=== PATIENT | male | born 1970 | race Caucasian/White ===

== ENCOUNTER 2017-01-06 15:20 | Inpatient (IN) | payer BC ==
[~2017-01-06] VITALS: Ht 180.3 cm; Wt 135.0 kg
[2017-01-15] MEDS ORDERED: METF850T PO (12:09)
[2017-01-15] MEDS ORDERED: PERC5TAB12 PO (12:09)
[2017-01-15] MEDS ORDERED: ZALE10CA PO (12:09)
[2017-01-15] MEDS ORDERED: VERA1TAB17 PO (12:09)
[2017-01-15] MEDS ORDERED: LOSA100T PO (12:09)
[2017-01-15] MEDS ORDERED: TERA5CAP3 PO (12:09)
[2017-01-15] MEDS ORDERED: SIMV20TA PO (12:09)
[2017-01-15] MEDS ORDERED: POTA10TA8 PO (12:09)
[2017-01-15] MEDS ORDERED: VITA-83 PO (12:09)
[2017-01-15] MEDS ORDERED: OMEP20TA PO (12:09)
[2017-01-15] MEDS ORDERED: VITA10002 PO (12:09)
[2017-01-15] MEDS ORDERED: FERR1TAB36 PO (12:09)
[2017-01-15] MEDS ORDERED: MONT10TA4 PO (12:09)
[2017-01-16] MEDS ORDERED: PROPOFOL 200 MG/20 ML AMP IV ONE (10:05)
[2017-01-16] MEDS ORDERED: ePHEDrine/NS 25 MG/5 ML SYR IV ONE (10:05)
[2017-01-16] MEDS ORDERED: ONDANSETRON HCL 4 MG/2 ML VIAL IV PUSH ONE (10:05)
[2017-01-16] MEDS ORDERED: NEOSTIGMINE 3 MG/3 ML SYR IV ONE (10:05)
[2017-01-16] MEDS ORDERED: NORMOSOL R INJ 2,000 ML IV ONE (10:05)
[2017-01-16] MEDS ORDERED: LACTATED RINGER'S 1000 ML INJ 3,000 ML IV ONE (10:05)
[2017-01-16] MEDS ORDERED: CHLORHEXIDINE GLUCONATE 2 % 1 PACK (2 CLOTHS) TOPICAL PRN (11:30)
[2017-01-16] MEDS ORDERED: SODIUM CHLORID 0.9% 500 ML IV PRN (11:30)
[2017-01-16] MEDS ORDERED: POVIDONE IODINE 5% (ANTISEPSIS KIT) 4 APPLICATIONS EACH NARE PRN (11:30)
[2017-01-16] MEDS ORDERED: ceFAZolin 2 GM PREMIX 50 ML IV SCH (11:30)
[2017-01-16] MEDS ORDERED: LACTATED RINGER'S 1000 ML IV PRN (11:30)
[2017-01-16] MEDS ORDERED: INSULIN HUMAN REGULAR 1,000 UNITS/10 ML VIAL SQ PRN (11:30)
[2017-01-16] MEDS ORDERED: METOPROLOL TARTRATE 25 MG TAB PO PRN (11:30)
[2017-01-16] MEDS ORDERED: CLIN1CAP6 PO (11:58)
[2017-01-16] MEDS ORDERED: NEOM500 PO (11:58)
[2017-01-16 12:01] VITALS: BP 138/80; PULSE 80; RESP 18; TEMP 98.2; O2SAT 96
[2017-01-16] MEDS ORDERED: MIDAZOLAM HCL 2 MG/2 ML VIAL ONE (14:52)
[2017-01-16] MEDS ORDERED: ACETAMINOPHEN 1000 MG/100 ML VIAL IV ONE ×2 (14:52→23:49)
[2017-01-16] MEDS ORDERED: fentaNYL CITRATE 250 MCG/5 ML AMP ONE ×2 (14:52→18:54)
[2017-01-16] MEDS ORDERED: FAMOTIDINE 20 MG/2 ML VIAL ONE (14:53)
[2017-01-16] MEDS ORDERED: SUGAMMADEX SODIUM 200 MG/2 ML VIAL IV PUSH ONE ×4 (14:53→23:49)
[2017-01-16] MEDS ORDERED: HYDROmorphone HCL PF 2 MG/ML VIAL ONE (14:53)
[2017-01-16] MEDS ORDERED: VANCOMYCIN HCL 1000 MG VIAL ONE (16:14)
[2017-01-16] MEDS ORDERED: CLINDAMYCIN PHOS 600 MG/4 ML VIAL ONE (16:14)
--- NOTE | 2017-01-16 16:40 | PD.OP ---
Operative Report Date of Surgery: Jan 16, 2017 Preoperative Diagnosis: (1) Diverticulitis Postoperative Diagnosis: (1) Diverticulitis Procedure: Cystoscopy and placement of bilateral ureteral catheters Anesthesia: General Surgeon: Charli Montanez Car Dumper Operator(s): None Operation and Findings: Indication for procedure: Consult intraoperatively to pass bilateral ureteral catheters to aid in visualization of this patient's ureters during his colorectal procedure. Urologic surgery procedures in detail: Concurrent with the colorectal surgeon Dr. Llanos I proceeded with cystoscopy and placement of bilateral ureteral catheters as follows: Initially cystoscopic evaluation was performed utilizing the rigid cystoscope with the 20 [place] sheath and 30 lens. The urethra was patent without stricture formation. The lateral lobes of the prostate were nonobstructing however there was markedly elevation of the bladder neck which made passing the cystoscope somewhat difficult. I was able to advance cystoscope and stimulated a small amount of bleeding in doing so. Upon entering the bladder both right and left ureteral orifice easily correct anatomic position effluxing clear yellow urine. There were multiple crystals noted collecting in the dependent portion of the bladder most likely related to incomplete bladder emptying. No other abnormalities were noted although I could not perform a detailed cystoscopic evaluation due to the small amount of bleeding that made visualization suboptimal. I then proceeded with passing the left sided ureteral catheter as follows: Initially a sensor 0.035 wire was advanced up the patient's left ureter. Next a 6 [place] open-ended catheter was advanced over the wire 25 cm in a cephalad direction and the wire withdrawn. The wire was then introduced through secondary synovitis cystoscope and the contralateral side was accomplished in similar fashion. With both catheters in place the wire and cystoscope were withdrawn and a 16 Bh[place]anese 10 cc Wills catheter was placed. Both open-ended ureteral catheters were then anchored to the Wills via a connector. All 3 catheters were then placed to gravity drainage. This completes urologic surgery portion of combined procedures on this patient. Dr. Llanos will have this patient follow up with me as an outpatient once he convalesces from his present surgery to further evaluate his voiding function. Charli Montanez MD Jan 16, 2017 16:40
[2017-01-16 22:28] LABS: BLOOD GAS BASE EXCESS -3.8 mmol/L (-2-2); BLOOD GAS CARBOXYHEMOGLOBIN 1.8 % (0-4); BLOOD GAS HCO3 21 mmol/L (22-26); BLOOD GAS METHEMOGLOBIN 1.1 % (0-2); BLOOD GAS O2 HGB SATURATION 96 % (90-100); BLOOD GAS PCO2 39 mmHg (38-42); BLOOD GAS PO2 175 mmHg (61-120); BLOOD GAS TOTAL HGB 13.8 G/DL (12.0-16.0); CRITICAL VALUE NO; TEMP CORR TO 98.6
[2017-01-16 22:31] LABS: STAT NO
[2017-01-17] VITALS (20 sets, daily range): BP systolic 108–154; BP diastolic 71–96; PULSE 103–124; RESP 16–18; TEMP 96.8–99.3; O2SAT 96–98
[2017-01-17] MEDS ORDERED: GENTAMICIN SULFATE 80 MG/2 ML VIAL ONE (00:26)
[2017-01-17] MEDS ORDERED: CLINDAMYCIN PHOS 600 MG/4 ML VIAL ONE (00:30)
[2017-01-17] MEDS ORDERED: ENALAPRILAT 1.25 MG/ML VIAL IV PRN (01:00)
[2017-01-17] MEDS: PCA - TOTAL MG MORPHINE DELIVERED PER SHIFT SCH ×4 (01:00→21:22)
[2017-01-17] MEDS ORDERED: ENALAPRILAT 2.5 MG/2 ML VIAL IV PRN (01:00)
[2017-01-17] MEDS ORDERED: POTASSIUM CHLOR 40 MEQ PREMIX 100 ML IV PRN (01:00)
[2017-01-17] MEDS ORDERED: NALOXONE HCL 0.4 MG/ML AMP IV PRN (01:00)
[2017-01-17] MEDS ORDERED: BENZOCAINE 6 MG/MENTHOL 10 MG LOZENGE BUCCAL PRN (01:00)
[2017-01-17] MEDS ORDERED: ACETAMINOPHEN 325 MG TAB PO PRN (01:00)
[2017-01-17] MEDS ORDERED: Post-op Orders (for Pharmacy) MISC XX ONE (01:00)
[2017-01-17] MEDS: SODIUM CHLORIDE 0.9% FLUSH 5 ML FLUSH IVF SCH ×3 (01:00→21:00)
[2017-01-17] MEDS ORDERED: SODIUM CHLORIDE 0.9% FLUSH 5 ML FLUSH IVF PRN (01:00)
[2017-01-17] MEDS ORDERED: diphenhydrAMINE HCL 50 MG/ML VIAL IV PRN (01:00)
[2017-01-17] MEDS ORDERED: *RESP: ALBUTEROL 2.5 MG/3 ML NEB (PRN) PERIprocedural Use ONLY NEB ONE (01:39)
[2017-01-17 01:43] LABS: AUTOMATED NEUTROPHIL # 18.3 TH/MM3 (1.8-7.7); BASOPHIL % 0.2 % (0.0-2.0); HEMATOCRIT 38.9 % (39.0-51.0); HEMO FLAGS DIFF FINAL; LYMPH % 6.7 % (9.0-44.0); LYMPHOCYTE # 1.4 TH/MM3 (1.0-4.8); MEAN CELL VOLUME 86.2 FL (80.0-100.0); MEAN CORPUSCULAR HEMOGLOBIN 29.6 PG (27.0-34.0); MEAN CORPUSCULAR HGB CONC 34.4 % (32.0-36.0); MONO % 6.8 % (0.0-8.0); NEUT % 86.3 % (16.0-70.0); PLATELET COUNT 259 TH/MM3 (150-450); RED BLOOD COUNT 4.51 MIL/MM3 (4.50-5.90); RED CELL DISTRIBUTION WIDTH 14.7 % (11.6-17.2); WHITE BLOOD COUNT 21.2 TH/MM3 (4.0-11.0)
[2017-01-17] MEDS ORDERED: fentaNYL CITRATE 250 MCG/5 ML AMP ONE (01:57)
[2017-01-17] MEDS: D5-NS + KCL 20 MEQ INJ 1,000 ML IV SCH ×4 (02:00→21:21)
[2017-01-17] MEDS ORDERED: CLINDAMYCIN INJ 300 MG in SODIUM CHLORIDE 0.9% INJ 100 ML IV SCH (02:00)
[2017-01-17] MEDS ORDERED: MORPHINE SULFATE 4 MG/ML INJ ONE (02:06)
[2017-01-17 02:14] LABS: BICARBONATE 24.9 MEQ/L (21.0-32.0); POTASSIUM 3.9 MEQ/L (3.5-5.1)
[2017-01-17] MEDS ORDERED: DO NOT ADM ANY ANTICOAGULANT DRUGS PRN (02:15)
[2017-01-17] MEDS ORDERED: *morphine SULFATE 8 MG/ML PERIprocedure ONLY ONE (02:21)
[2017-01-17] MEDS ORDERED: LABETALOL HCL 100 MG/20 ML VIAL ONE (02:38)
[2017-01-17] MEDS: VANCOMYCIN INJ 1,250 MG in SODIUM CHLOR 0.9% 250 ML INJ 250 ML IV SCH ×2 (03:42→15:52)
[2017-01-17] MEDS: CLINDAMYCIN INJ 300 MG in SODIUM CHLORIDE 0.9% INJ 100 ML IV SCH ×4 (04:38→23:31)
[2017-01-17] MEDS: PANTOPRAZOLE SODIUM 40 MG VIAL IVP SCH (09:49)
[2017-01-17] MEDS: ONDANSETRON HCL 4 MG/2 ML VIAL IV PRN ×2 (12:30→18:28)
[2017-01-17] MEDS: MORPHINE SULFATE 30 MG/30 ML PCA IV SCH (13:09)
[2017-01-17] MEDS: KETOROLAC TROMETHAMINE 30 MG/ML (IVP) VIAL IVP PRN (15:51)
[2017-01-17] MEDS: HEPARIN SODIUM - SQ 10,000 UNITS/ML VIAL SQ SCH (17:45)
--- NOTE | 2017-01-17 19:53 | MP ---
cc: QUOC LLANOS MD DATE OF SURGERY 01/16/17 PREOPERATIVE DIAGNOSIS Diverticulitis POSTOPERATIVE DIAGNOSIS 1. Diverticulitis 2. Adhesions PROCEDURES 1. Robotic/laparoscopic extensive lysis of adhesions. 2. Robotic left/sigmoid colectomy 3. Robotic diverting ileostomy. 4. Take down of the splenic flexure. SURGEON Jaswant Llanos MD [employer] [place] ANESTHESIA General per ET tube ESTIMATED BLOOD LOSS 250 mL. OPERATIVE INDICATIONS The patient is a 46 year old male who, about 4-6 months ago, had a severe case of diverticulitis with microperforation and a hepatic abscess. OPERATIVE FINDINGS The patient had adhesions throughout the peritoneal cavity and pelvis of small bowel, small bowel to the anterior abdominal wall, small bowel to the omentum, small bowel of the colon, colon to the anterior abdominal wall, and colon to omentum. The sigmoid colon and distal descending colon were hardened and phlegmonous and adherent to the anterior abdominal wall. There was also a small abscess between the colon and the anterior abdominal wall. The distal ileum had three areas of very dense hard adhesions to the phlegmon as well. The liver was not visualized, nor was the stomach. OPERATIVE COURSE The patient was brought to the operating room and placed in the supine position. After induction of general anesthesia, the patient was placed in Jeyson stirrups and all bony prominences were carefully padded. The skin of the anterior abdominal wall, as well as the perineal area, was then prepped and draped in the usual sterile fashion. Dr. Montanez then came in and performed cystoscopy with placement of bilateral ureteral catheters. Please see his operative note for details. A site was then chosen for the camera. Because of his large body habitus I did elect to put that just below the umbilicus. A 10-12 port was placed at this location under direct vision using the laparoscope, and CO2 insufflation was begun. The laparoscope was introduced and the patient was immediately noted to have adhesions throughout the peritoneal cavity. The ones to the anterior abdominal wall were copious, but they were not particularly thick or dense. I was able to put the right upper quadrant assist port, #5, just under the right costal margin in the right midclavicular line and, with this, I was able to take down enough adhesions to gradually add ports as follows: The #1 port was placed just inside the right anterior superior iliac spine. The #3 port was placed on a line with the umbilicus in the left anterior axillary line and the #2 port was placed 5 cm above the umbilical line in the left mid clavicular line. All ports were adjusted based on the patient's extremely large body habitus. Eventually, we were able to clear enough of the adhesions that we could get all our ports were put in and, at that point, I elected to proceed with robotic surgery for the remainder of the adhesions. The robot was docked and slowly and painfully the remainder of the adhesions of the small bowel as well as the colon were gradually taken down. Eventually, we had mobility of most of the small bowel, at least to the point we could get it out of the area of concern. The distal small bowel was peeled off the phlegmon and there was one small area of concern that I elected to visualize later. The colon was attached to the left pelvic sidewall. The mesentery on the right was opened, and dissection was continued in this plane posterior to the vessels until the left ureter was suspected. However, due to the phlegmon I was not able to be sure until we completed the lateral dissection. The phlegmon was then carefully and slowly dissected free from the lateral pelvic sidewall. When we dissected up and around anteriorly where it was attached to the anterior abdominal wall, there was a small abscess cavity. Eventually, we were able to dissect this free and the left ureter was clearly identified and swept away from the specimen. Dissection then continued in the posterior plane down to the level of the mid rectum and up and around the right and left side. At this point, the mesenteric vessels were dissected out circumferentially and an attempt was made to staple them. However, the angle was such that we could not really staple easily and so I elected to proceed with resection with clamps. The superior hemorrhoidal artery was dissected free circumferentially, doubly clamped proximally, singly clamped distally, and divided. The superior hemorrhoidal vein at this point was left alone, but it was later taken. Throughout the case, because of the patient's very large body habitus, all of the surgery was much more difficult. Eventually we had full mobility of the distal descending colon, the sigmoid colon and the proximal and mid rectum. The descending colon had omentum stuck to it proximally and I was not able to get any further using the robot in this position. With this, I elected to proceed with distal resection and then redock the robot over his left shoulder. A site was chosen for division of the rectum, by placement of a sponge stick. The mesentery at this level was divided using the harmonic scalpel. A blue load of the [place] top dyeing machine tender was placed across the bowel at this level. A second load was necessary to transect the bowel. The EEA stapler was then advanced and lay nicely at the rectal stump. The robot was then undocked and redocked over the left shoulder. The dissection continued up the left side wall, freeing the omentum from the transverse and descending colon and dissecting free the proximal descending colon, splenic flexure and the mid and distal transverse colon. The posterior attachments were dissected free as well. Eventually, we had full mobility of the mid transverse colon, distal transverse colon, descending colon, sigmoid colon and rectum. All dissection beds were examined and hemostasis was obtained with electrocautery. I elected to proceed with the open portion of the procedure. The robot was undocked. After discussion, I felt that a lower midline vertical incision would be more effective as I did need to evaluate that small bowel where it had been stuck down against the phlegmon. A 15-20 cm incision was made beginning 5-6 cm below the umbilicus and proceeding to 5-6 cm above the pubic symphysis. Using electrocautery, dissection was carried down to the fascia of the abdominal wall, which was split. At this point, the fascia of the anterior abdominal wall was divided using electrocautery. The proximal stapled end of the bowel was then grasped and pulled up and out through the incision and a site was chosen for proximal division of the bowel just above the area of phlegmon where the bowel was soft and pliable. The mesentery at this level was serially divided and ligated using 0 Vicryl ties and a pursestring stapling device was placed across the bowel at this level. The distal bowel was then amputated and sent for pathology. The anvil from the 33 EEA stapler was placed into the cut end of the bowel and the previously placed pursestring suture was then secured. At this point, due to a little tightness I did elect to take the superior hemorrhoidal vein. This was divided and ligated using 0 Vicryl ties. The small bowel was then evaluated and there was one small area of serosal tear which was repaired in an interrupted [id number] fashion using 3-0 Vicryl. A small area of bleeding posterior to the rectum was then controlled using 3-0 Vicryl. The 33 EEA stapler was then advanced through the anus and up to the rectal stump. The spike was advanced just anterior to the staple line. The anvil was to the spike, being careful that the bowel was not twisted. The stapler was then closed, held for 30 seconds, fired, and removed. The proximal anastomotic ring was noted to be somewhat thinned on one side. The distal ring was good. A small amount of warm normal saline was placed in the pelvis and digital pressure was held on the bowel proximally while air was placed into the rectum until gentle tension was noted on the anastomosis with no sign of any leak noted. The bowel lay in a nice orientation with no tension. The small bowel proximal to the ileum, however, was quite beat up and between the length of the procedure, the damage to the distal small bowel, and the thin proximal donut, I did feel that proximal diversion was prudent. An NG tube was placed. A site was chosen for proximal diversion of the bowel, just above the area of the beat up bowel. Because of the patient's extremely large body habitus, however, it was very difficult to bring it up to the abdominal wall and the only place I could get it to come up with any likelihood of having a reasonable stoma was in the upper portion of his lower midline incision. Some Alice was placed into the pelvis and Seprafilm was placed into the peritoneal cavity. The fascia at the midline incision was closed using #1 PDS, leaving maybe an opening of two fingerbreadths for the stoma in the upper portion. Additional Seprafilm was placed around the stoma in the subcutaneous tissue. A window was made in the mesentery and a bar was placed through the window. The subcutaneous tissue was reapproximated in an interrupted fashion using 3-0 Vicryl. The skin was closed in a running subcuticular fashion using 3-0 Vicryl. The stoma was then matured in a typical Millie fashion over the bar, using 3-0 Vicryl. Steri-Strips and sterile dressings and a stoma appliance were then applied. All sponge, needle and instrument counts were correct and the patient was returned to the post anesthesia care in stable condition. MD SARAH Villa/ /1:02 AM /7:14 PM [place]
[2017-01-18] VITALS (16 sets, daily range): BP systolic 129–148; BP diastolic 63–91; PULSE 115–132; RESP 16–18; TEMP 97.7–99.4; O2SAT 92–98
[2017-01-18] MEDS: VANCOMYCIN INJ 1,250 MG in SODIUM CHLOR 0.9% 250 ML INJ 250 ML IV SCH ×2 (03:20→15:44)
[2017-01-18] MEDS: MORPHINE SULFATE 30 MG/30 ML PCA IV SCH ×2 (03:20→16:54)
[2017-01-18] MEDS: PCA - TOTAL MG MORPHINE DELIVERED PER SHIFT SCH ×3 (03:21→20:47)
[2017-01-18] MEDS: D5-NS + KCL 20 MEQ INJ 1,000 ML IV SCH ×2 (03:32→14:21)
[2017-01-18] MEDS: ONDANSETRON HCL 4 MG/2 ML VIAL IV PRN ×3 (03:32→20:39)
[2017-01-18] MEDS: CLINDAMYCIN INJ 300 MG in SODIUM CHLORIDE 0.9% INJ 100 ML IV SCH ×3 (04:53→17:47)
[2017-01-18] MEDS: HEPARIN SODIUM - SQ 10,000 UNITS/ML VIAL SQ SCH ×2 (04:53→17:46)
[2017-01-18] MEDS: PANTOPRAZOLE SODIUM 40 MG VIAL IVP SCH (08:28)
[2017-01-18] MEDS: SODIUM CHLORIDE 0.9% FLUSH 5 ML FLUSH IVF SCH ×2 (08:28→20:46)
[2017-01-18 08:58] LABS: AUTOMATED NEUTROPHIL # 13.2 TH/MM3 (1.8-7.7); BASOPHIL % 0.3 % (0.0-2.0); HEMATOCRIT 37.9 % (39.0-51.0); HEMO FLAGS DIFF FINAL; LYMPH % 5.2 % (9.0-44.0); LYMPHOCYTE # 0.8 TH/MM3 (1.0-4.8); MEAN CELL VOLUME 88.9 FL (80.0-100.0); MEAN CORPUSCULAR HEMOGLOBIN 28.8 PG (27.0-34.0); MEAN CORPUSCULAR HGB CONC 32.3 % (32.0-36.0); MONO % 5.8 % (0.0-8.0); NEUT % 88.7 % (16.0-70.0); PLATELET COUNT 184 TH/MM3 (150-450); RED BLOOD COUNT 4.27 MIL/MM3 (4.50-5.90); RED CELL DISTRIBUTION WIDTH 15.2 % (11.6-17.2); WHITE BLOOD COUNT 14.9 TH/MM3 (4.0-11.0)
[2017-01-18 09:34] LABS: BICARBONATE 27.5 MEQ/L (21.0-32.0); POTASSIUM 3.7 MEQ/L (3.5-5.1)
[2017-01-18] MEDS ORDERED: PNEUMOCOCCAL POLYVALENT INJ 25 MCG/0.5 ML SYR IM ONE (10:00)
[2017-01-18] MEDS: KETOROLAC TROMETHAMINE 30 MG/ML (IVP) VIAL IVP PRN ×2 (10:11→20:37)
--- NOTE | 2017-01-18 10:36 | HHI.PR ---
Subjective Remarks C/R Surg POD# 2 afebrile, VSS UO good stoma min Objective - Vital Signs Date Time Temp Pulse Resp B/P Pulse Ox O2 Delivery O2 Flow Rate FiO2 01/18/17 10:00 115 01/18/17 07:00 99.0 18 142/81 96 01/17/17 09:07 Nasal Cannula 2.00 01/17/17 01:30 60 Result Diagram: 01/18/17 0755 01/18/17 0755 Objective Remarks PE alert Abd - soft, stoma leaking, wounds clean A/P Assessment and Plan Imp: dc stents OOB adv diet decr IVF re-pouch stoma Nathaniel Wang MD Jan 18, 2017 10:36
[2017-01-18] MEDS: VERAPAMIL HCL 240 MG SUSTAINED RELEASE TAB PO SCH (20:45)
[2017-01-19] MEDS: CLINDAMYCIN INJ 300 MG in SODIUM CHLORIDE 0.9% INJ 100 ML IV SCH ×4 (00:28→18:07)
[2017-01-19 00:56] VITALS: BP 148/84; PULSE 116; RESP 17; TEMP 99.5; O2SAT 96
[2017-01-19] MEDS: VANCOMYCIN INJ 1,250 MG in SODIUM CHLOR 0.9% 250 ML INJ 250 ML IV SCH ×2 (03:35→16:07)
[2017-01-19] MEDS: ONDANSETRON HCL 4 MG/2 ML VIAL IV PRN ×3 (04:22→19:58)
[2017-01-19 04:45] VITALS: BP 157/87; PULSE 112; RESP 18; TEMP 99.1; O2SAT 96
[2017-01-19] MEDS: PCA - TOTAL MG MORPHINE DELIVERED PER SHIFT SCH ×3 (06:00→22:00)
[2017-01-19 06:10] LABS: AUTOMATED NEUTROPHIL # 12.6 TH/MM3 (1.8-7.7); BASOPHIL % 0.2 % (0.0-2.0); HEMATOCRIT 34.9 % (39.0-51.0); HEMO FLAGS DIFF FINAL; LYMPH % 5.9 % (9.0-44.0); LYMPHOCYTE # 0.8 TH/MM3 (1.0-4.8); MEAN CELL VOLUME 88.5 FL (80.0-100.0); MEAN CORPUSCULAR HEMOGLOBIN 29.3 PG (27.0-34.0); MONO % 4.9 % (0.0-8.0); PLATELET COUNT 163 TH/MM3 (150-450); RED BLOOD COUNT 3.94 MIL/MM3 (4.50-5.90); WHITE BLOOD COUNT 14.2 TH/MM3 (4.0-11.0)
[2017-01-19] MEDS: D5-NS + KCL 20 MEQ INJ 1,000 ML IV SCH ×3 (06:59→19:56)
[2017-01-19] MEDS: MORPHINE SULFATE 30 MG/30 ML PCA IV SCH ×2 (07:01→19:52)
[2017-01-19] MEDS: HEPARIN SODIUM - SQ 10,000 UNITS/ML VIAL SQ SCH ×2 (07:19→18:07)
[2017-01-19 08:00] VITALS: BP 138/78; PULSE 124; RESP 18; TEMP 99.3; O2SAT 95
[2017-01-19] MEDS: SODIUM CHLORIDE 0.9% FLUSH 5 ML FLUSH IVF SCH ×2 (09:00→19:56)
[2017-01-19] MEDS: LOSARTAN 50 MG TAB PO SCH (09:40)
[2017-01-19] MEDS: PANTOPRAZOLE SODIUM 40 MG VIAL IVP SCH (09:40)
[2017-01-19 12:00] VITALS: BP 134/80; PULSE 121; RESP 18; TEMP 98.3; O2SAT 95
[2017-01-19 16:00] VITALS: BP 140/84; PULSE 113; RESP 19; TEMP 98.6; O2SAT 95
--- NOTE | 2017-01-19 18:58 | HHI.PR ---
Subjective Remarks POD#3 robotic extensive PEGGY, LAR, diverting ileostomy much better after NGT, thirsty Objective Vital Signs Date Time Temp Pulse Resp B/P Pulse Ox O2 Delivery O2 Flow Rate FiO2 01/19/17 16:00 98.6 113 19 140/84 95 01/19/17 14:00 17 01/19/17 12:00 98.3 121 18 134/80 95 01/19/17 08:00 99.3 124 18 138/78 95 01/19/17 07:01 18 01/19/17 06:00 18 01/19/17 04:45 99.1 112 18 157/87 96 01/19/17 00:56 99.5 116 17 148/84 96 01/18/17 23:44 92 21 01/18/17 20:47 18 01/18/17 20:00 97.7 115 17 142/91 92 I/O 01/18/17 01/18/17 01/18/17 01/19/17 01/19/17 01/19/17 07:00 15:00 23:00 07:00 15:00 23:00 Intake Total 2056 ml 3279 ml 1114 ml 872 ml Output Total 600 ml 1200 ml 1280 ml 875 ml Balance 1456 ml 2079 ml -166 ml -3 ml Intake Oral 480 ml 1160 ml 240 ml IV Total 1576 ml 2119 ml 874 ml 872 ml Output Urine Total 600 ml 1200 ml 480 ml 300 ml Gastric Drainage Total 575 ml Emesis 800 ml Result Diagram: 01/19/17 0540 01/19/17 0540 Objective Remarks Abdomen soft, nondistended tender Wounds clean Assessment and Plan Assessment and Plan MOBILIZE Continue NGT - ileus not surprising considering amount of adhesions Riddhi Llanos MD Jan 19, 2017 18:58
[2017-01-19] MEDS: VERAPAMIL HCL 240 MG SUSTAINED RELEASE TAB PO SCH (19:55)
[2017-01-19 20:00] VITALS: BP 126/75; PULSE 110; RESP 19; TEMP 97.9; O2SAT 92
[2017-01-20] VITALS: BP 124/63; PULSE 107; RESP 20; TEMP 98.8; O2SAT 92
[2017-01-20] MEDS: CLINDAMYCIN INJ 300 MG in SODIUM CHLORIDE 0.9% INJ 100 ML IV SCH ×4 (00:17→17:12)
[2017-01-20] MEDS: VANCOMYCIN INJ 1,250 MG in SODIUM CHLOR 0.9% 250 ML INJ 250 ML IV SCH ×2 (03:51→16:08)
[2017-01-20] MEDS: D5-NS + KCL 20 MEQ INJ 1,000 ML IV SCH ×3 (03:51→21:21)
[2017-01-20 04:00] VITALS: BP 141/78; PULSE 100; RESP 21; TEMP 96; O2SAT 97
[2017-01-20] MEDS: HEPARIN SODIUM - SQ 10,000 UNITS/ML VIAL SQ SCH ×2 (05:45→17:12)
[2017-01-20] MEDS: PCA - TOTAL MG MORPHINE DELIVERED PER SHIFT SCH ×3 (05:46→22:00)
[2017-01-20 06:27] LABS: AUTOMATED NEUTROPHIL # 8.1 TH/MM3 (1.8-7.7); BASOPHIL % 0.2 % (0.0-2.0); EOSINOPHIL # 0.1 TH/MM3 (0-0.4); EOSINOPHIL % 0.8 % (0.0-4.0); HEMATOCRIT 30.6 % (39.0-51.0); HEMO FLAGS DIFF FINAL; LYMPHOCYTE # 1.2 TH/MM3 (1.0-4.8); MEAN CELL VOLUME 87.3 FL (80.0-100.0); MEAN CORPUSCULAR HEMOGLOBIN 30.3 PG (27.0-34.0); MEAN CORPUSCULAR HGB CONC 34.7 % (32.0-36.0); MONO % 8.3 % (0.0-8.0); NEUT % 78.7 % (16.0-70.0); PLATELET COUNT 183 TH/MM3 (150-450); RED BLOOD COUNT 3.51 MIL/MM3 (4.50-5.90); RED CELL DISTRIBUTION WIDTH 14.7 % (11.6-17.2); WHITE BLOOD COUNT 10.3 TH/MM3 (4.0-11.0)
[2017-01-20 06:45] LABS: BICARBONATE 29.3 MEQ/L (21.0-32.0); POTASSIUM 3.7 MEQ/L (3.5-5.1)
[2017-01-20] MEDS: MORPHINE SULFATE 30 MG/30 ML PCA IV SCH ×2 (07:38→17:20)
[2017-01-20] MEDS: PANTOPRAZOLE SODIUM 40 MG VIAL IVP SCH (07:40)
[2017-01-20] MEDS: SODIUM CHLORIDE 0.9% FLUSH 5 ML FLUSH IVF SCH ×2 (07:42→21:00)
[2017-01-20] MEDS: LOSARTAN 50 MG TAB PO SCH (07:49)
[2017-01-20] MEDS: ONDANSETRON HCL 4 MG/2 ML VIAL IV PRN (07:49)
[2017-01-20 08:00] VITALS: BP 123/63; PULSE 94; RESP 17; TEMP 98; O2SAT 98
[2017-01-20 12:00] VITALS: BP 128/74; PULSE 95; RESP 18; TEMP 96.8; O2SAT 96
[2017-01-20 16:00] VITALS: BP 141/76; PULSE 95; RESP 16; TEMP 97; O2SAT 96
--- NOTE | 2017-01-20 17:18 | HHI.PR ---
Subjective Remarks POD#4 robotic extensive PEGGY, LAR, diverting ileostomy very resistant to any movement c/o's back pain Objective Vital Signs Date Time Temp Pulse Resp B/P Pulse Ox O2 Delivery O2 Flow Rate FiO2 01/20/17 16:00 97.0 95 16 141/76 96 01/20/17 14:00 17 01/20/17 12:00 96.8 95 18 128/74 96 01/20/17 08:00 98.0 94 17 123/63 98 01/20/17 07:38 16 01/20/17 05:46 15 01/20/17 04:00 96.0 100 21 141/78 97 01/20/17 00:00 98.8 107 20 124/63 92 01/19/17 22:00 15 01/19/17 20:00 97.9 110 19 126/75 92 01/19/17 19:52 15 I/O 01/19/17 01/19/17 01/19/17 01/20/17 01/20/17 01/20/17 07:00 15:00 23:00 07:00 15:00 23:00 Intake Total 1114 ml 872 ml 1081 ml 900 ml 1051 ml Output Total 1280 ml 875 ml 850 ml 1450 ml 775 ml Balance -166 ml -3 ml 231 ml -550 ml 276 ml Intake Oral 240 ml 30 ml 0 ml 0 ml IV Total 874 ml 872 ml 1051 ml 900 ml 1051 ml Output Urine Total 480 ml 300 ml 400 ml 1200 ml 600 ml Stool Total 0 ml 0 ml 0 ml Gastric Drainage Total 575 ml 450 ml 250 ml 175 ml Emesis 800 ml Result Diagram: 01/20/17 0610 01/20/17 0610 Objective Remarks Abdomen soft, nondistended tender Wounds clean stoma pink, no output Assessment and Plan Assessment and Plan MOBILIZE Continue NGT Await bowel function Riddhi Llanos MD Jan 20, 2017 17:18
[2017-01-20 20:00] VITALS: BP 123/61; PULSE 96; RESP 20; TEMP 98.2; O2SAT 94
[2017-01-20] MEDS: VERAPAMIL HCL 240 MG SUSTAINED RELEASE TAB PO SCH (21:21)
[2017-01-21] VITALS (7 sets, daily range): BP systolic 122–156; BP diastolic 59–81; PULSE 85–108; RESP 17–20; TEMP 95.6–98.4; O2SAT 93–98
[2017-01-21] MEDS: CLINDAMYCIN INJ 300 MG in SODIUM CHLORIDE 0.9% INJ 100 ML IV SCH ×4 (00:43→18:40)
[2017-01-21] MEDS: VANCOMYCIN INJ 1,250 MG in SODIUM CHLOR 0.9% 250 ML INJ 250 ML IV SCH ×2 (04:22→17:33)
[2017-01-21] MEDS: D5-NS + KCL 20 MEQ INJ 1,000 ML IV SCH ×3 (04:23→19:43)
[2017-01-21] MEDS: HEPARIN SODIUM - SQ 10,000 UNITS/ML VIAL SQ SCH ×2 (05:39→18:39)
[2017-01-21] MEDS: PCA - TOTAL MG MORPHINE DELIVERED PER SHIFT SCH ×3 (05:39→22:00)
[2017-01-21] MEDS: LOSARTAN 50 MG TAB PO SCH (08:01)
[2017-01-21] MEDS: SODIUM CHLORIDE 0.9% FLUSH 5 ML FLUSH IVF SCH ×2 (08:02→19:43)
[2017-01-21] MEDS: PANTOPRAZOLE SODIUM 40 MG VIAL IVP SCH (08:02)
[2017-01-21] MEDS: MORPHINE SULFATE 30 MG/30 ML PCA IV SCH ×2 (08:13→19:42)
--- NOTE | 2017-01-21 08:37 | HHI.PR ---
Subjective Remarks POD#4 robotic extensive PEGGY, LAR, diverting ileostomy comfortable Objective Vital Signs Date Time Temp Pulse Resp B/P Pulse Ox O2 Delivery O2 Flow Rate FiO2 01/21/17 08:13 16 01/21/17 08:00 96.8 98 17 136/79 97 01/21/17 05:39 15 01/21/17 04:00 98.4 96 20 134/78 95 01/21/17 00:00 96.9 108 20 142/79 93 01/20/17 22:00 15 01/20/17 20:00 98.2 96 20 123/61 94 01/20/17 17:20 16 01/20/17 16:00 97.0 95 16 141/76 96 01/20/17 14:00 17 01/20/17 12:00 96.8 95 18 128/74 96 I/O 01/20/17 01/20/17 01/20/17 01/21/17 01/21/17 01/21/17 07:00 15:00 23:00 07:00 15:00 23:00 Intake Total 900 ml 1051 ml 1843 ml 1129 ml Output Total 1450 ml 775 ml 550 ml 1000 ml Balance -550 ml 276 ml 1293 ml 129 ml Intake Oral 0 ml 0 ml 0 ml 0 ml IV Total 900 ml 1051 ml 1843 ml 1129 ml Output Urine Total 1200 ml 600 ml 500 ml 750 ml Stool Total 0 ml 0 ml Gastric Drainage Total 250 ml 175 ml 50 ml 250 ml # Bowel Movements 0 0 Result Diagram: 01/20/17 0610 01/20/17 0610 Objective Remarks Abdomen soft, nondistended tender Wounds clean stoma pink, no output Assessment and Plan Assessment and Plan MOBILIZE Continue NGT Await bowel function Riddhi Llanos MD Jan 21, 2017 08:37
[2017-01-21] MEDS: VERAPAMIL HCL 240 MG SUSTAINED RELEASE TAB PO SCH (19:38)
[2017-01-22] MEDS: CLINDAMYCIN INJ 300 MG in SODIUM CHLORIDE 0.9% INJ 100 ML IV SCH ×5 (00:36→23:42)
[2017-01-22 03:56] VITALS: BP 140/70; PULSE 90; RESP 18; TEMP 96.9; O2SAT 95
[2017-01-22] MEDS: VANCOMYCIN INJ 1,250 MG in SODIUM CHLOR 0.9% 250 ML INJ 250 ML IV SCH ×2 (04:08→16:15)
[2017-01-22] MEDS: D5-NS + KCL 20 MEQ INJ 1,000 ML IV SCH ×3 (04:09→19:33)
[2017-01-22] MEDS: HEPARIN SODIUM - SQ 10,000 UNITS/ML VIAL SQ SCH ×2 (05:53→17:25)
[2017-01-22 05:57] LABS: BICARBONATE 28.1 MEQ/L (21.0-32.0)
[2017-01-22] MEDS: PCA - TOTAL MG MORPHINE DELIVERED PER SHIFT SCH ×3 (06:00→22:00)
[2017-01-22] MEDS: MORPHINE SULFATE 30 MG/30 ML PCA IV SCH ×2 (07:41→20:07)
[2017-01-22] MEDS: LOSARTAN 50 MG TAB PO SCH (07:43)
[2017-01-22] MEDS: PANTOPRAZOLE SODIUM 40 MG VIAL IVP SCH (07:44)
[2017-01-22] MEDS: SODIUM CHLORIDE 0.9% FLUSH 5 ML FLUSH IVF SCH ×2 (07:51→19:31)
[2017-01-22 08:00] VITALS: BP 141/69; PULSE 83; RESP 17; TEMP 95.7; O2SAT 94
--- NOTE | 2017-01-22 10:16 | HHI.PR ---
Subjective Remarks POD#5 robotic extensive PEGGY, LAR, diverting ileostomy comfortable Objective Vital Signs Date Time Temp Pulse Resp B/P Pulse Ox O2 Delivery O2 Flow Rate FiO2 01/22/17 08:00 95.7 83 17 141/69 94 01/22/17 07:41 18 01/22/17 06:00 18 01/22/17 03:56 96.9 90 18 140/70 95 01/21/17 23:54 95.6 85 18 122/64 95 01/21/17 22:00 16 01/21/17 20:29 96.4 89 17 125/59 98 01/21/17 19:46 16 01/21/17 19:42 18 01/21/17 16:00 97.5 95 18 156/81 95 01/21/17 12:25 16 01/21/17 12:00 96.2 90 18 143/72 96 I/O 01/21/17 01/21/17 01/21/17 01/22/17 01/22/17 01/22/17 07:00 15:00 23:00 07:00 15:00 23:00 Intake Total 1129 ml 456 ml 669 ml 1031 ml Output Total 1000 ml 950 ml 1125 ml 1150 ml Balance 129 ml -494 ml -456 ml -119 ml Intake Oral 0 ml 0 ml IV Total 1129 ml 456 ml 669 ml 1031 ml Output Urine Total 750 ml 550 ml 800 ml 700 ml Stool Total 0 ml Gastric Drainage Total 250 ml 400 ml 325 ml 450 ml # Voids 1 # Bowel Movements 0 0 Result Diagram: 01/20/17 0610 01/22/17 0440 Objective Remarks Abdomen soft, nondistended tender Wounds clean stoma pink, no output Assessment and Plan Assessment and Plan MOBILIZE - walked to bathroom today, encouraged more Continue NGT - suspect high output is secondary to him drinking more, limit to 8 ounces/shift Await bowel function Enterostomal therapy to flush ileostomy Riddhi Llanos MD Jan 22, 2017 10:16
[2017-01-22 12:00] VITALS: BP 145/65; PULSE 84; RESP 17; TEMP 97.9; O2SAT 97
[2017-01-22 16:00] VITALS: BP 127/66; PULSE 71; RESP 18; TEMP 97.1; O2SAT 94
[2017-01-22] MEDS: VERAPAMIL HCL 240 MG SUSTAINED RELEASE TAB PO SCH (19:31)
[2017-01-22 20:00] VITALS: BP 157/84; PULSE 87; RESP 18; TEMP 98.6; O2SAT 97
[2017-01-23] VITALS: BP 131/77; PULSE 81; RESP 18; TEMP 97.8; O2SAT 98
[2017-01-23 04:00] VITALS: BP 169/83; PULSE 87; RESP 20; TEMP 97; O2SAT 98
[2017-01-23] MEDS: VANCOMYCIN INJ 1,250 MG in SODIUM CHLOR 0.9% 250 ML INJ 250 ML IV SCH ×2 (04:04→15:28)
[2017-01-23] MEDS: D5-NS + KCL 20 MEQ INJ 1,000 ML IV SCH ×3 (04:05→21:05)
[2017-01-23] MEDS: CLINDAMYCIN INJ 300 MG in SODIUM CHLORIDE 0.9% INJ 100 ML IV SCH ×3 (05:58→17:51)
[2017-01-23] MEDS: PCA - TOTAL MG MORPHINE DELIVERED PER SHIFT SCH ×3 (06:00→22:00)
[2017-01-23] MEDS: HEPARIN SODIUM - SQ 10,000 UNITS/ML VIAL SQ SCH ×2 (06:02→17:51)
[2017-01-23] MEDS: LOSARTAN 50 MG TAB PO SCH (07:54)
[2017-01-23] MEDS: SODIUM CHLORIDE 0.9% FLUSH 5 ML FLUSH IVF SCH ×2 (07:54→21:00)
[2017-01-23] MEDS: MORPHINE SULFATE 30 MG/30 ML PCA IV SCH ×2 (07:57→23:11)
[2017-01-23 08:00] VITALS: BP 128/65; PULSE 83; RESP 13; TEMP 97; O2SAT 97
[2017-01-23] MEDS: PANTOPRAZOLE SODIUM 40 MG VIAL IVP SCH (08:03)
[2017-01-23 12:00] VITALS: BP 136/71; PULSE 80; RESP 16; TEMP 97.3; O2SAT 93
--- NOTE | 2017-01-23 13:10 | HHI.FF ---
Face to Face Verification Diagnosis: (1) Diverticulitis Physical Therapy Order: Evaluate and Treat, Improve ambulation, Strength and gait training Home Health Nursing Order: Medical education Signs/symptoms of disease process Wound care and dressing changes I have seen patient Jevon Loving on 01/23/17. My clinical findings support the need for the requested home health care services because: Ltd mobility - disease progression Deconditioned w/ increased weakness Limited ability to care for self High risk of falls I certify that my clinical findings support that this patient is homebound because: Post-op weakness Impaired cognitive ability/safety Unsteady gait/balance Nathaniel Wang MD Jan 23, 2017 13:10
[2017-01-23 16:00] VITALS: BP 136/74; PULSE 75; RESP 16; TEMP 96.7; O2SAT 94
[2017-01-23 20:00] VITALS: BP 139/72; PULSE 80; RESP 20; TEMP 97.7; O2SAT 96
--- NOTE | 2017-01-23 20:22 | MB ---
cc: LAWRENCE GALLO III, M.D. DATE OF CONSULTATION: 01/23/2017. HISTORY OF PRESENT ILLNESS: The patient is a very friendly right hand-dominant 46-year-old male who was operated on 01/17 for diverticulitis and adhesions. He went underwent extensive lyses of adhesions and sigmoid colectomy with diverting ileostomy and takedown of the splenic flexure. He states that after he woke up from the operation, he had some numbness and weakness in his right hand which he does not recall ever having before. 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 PAST MEDICAL HISTORY: 1. Diabetes. 1. High blood pressure. PAST SURGICAL HISTORY As above. MEDICATIONS: 1. Cozaar. 2. Potassium replacement. 3. Verapamil. 4. Heparin subcutaneous. 5. Protonix. 6. Clindamycin. 7. Vancomycin. 8. Zofran. SOCIAL HISTORY: He does not smoke. IMAGING STUDIES: There are no imaging studies that need to be reviewed at this time. PHYSICAL EXAMINATION: He is well-developed, well-nourished in no apparent distress lying in his bed with an nasogastric tube in place. He is awake, alert and oriented x3. Examination of the right upper extremity revealed that he has full active range of motion throughout his entire arm, wrist and hands. All musculotendinous units are intact. Capillary refill of less than 2 seconds in all fingertips. He has a palpable radial pulse. He has a negative Tinel's sign over the right median and ulnar nerves at the wrist but he has a positive Tinel's sign over the right ulnar nerve at the elbow. He has slightly a decreased construction analyst strength but it is still quite strong. He had no sign of any infection. He has intact sensation in all fingers. He has decreased ulnar motor strength in the intrinsic muscles. His radial nerve appears to be fully intact as does the median nerve. There is no tenderness to palpation or axial compression of the cervical spine. IMPRESSION: Right ulnar neuropathy centered at the elbow. PLAN: I do not think this is because of his surgery. I think he had carpal in the cubital tunnel previous to this and possibly positioning aggravated a pre-existing condition but this should resolve in any event. I told him this is not uncommon at all and he should not be worried. I have ordered protective gel pads for the right elbow as well as an elbow extension splint for him to wear every night while sleeping for six weeks. I discussed my findings and recommendations with him and he is very grateful and very pleasant and wishes to proceed. Thank you very much for the consult. I will follow him along with you and I will see him as an outpatient once he is discharged. MD VERNA Isabel III/JAZLYN /7:10 PM /8:15 PM
[2017-01-23] MEDS: VERAPAMIL HCL 240 MG SUSTAINED RELEASE TAB PO SCH (20:47)
--- NOTE | 2017-01-23 21:52 | HHI.PR ---
Subjective Remarks C/R Surg POD# 7 afebrile, VSS UO good stoma starting to function c/o rt hand numbness, weakness Objective - Vital Signs Date Time Temp Pulse Resp B/P Pulse Ox O2 Delivery O2 Flow Rate FiO2 01/23/17 20:00 97.7 80 20 139/72 96 Result Diagram: 01/20/17 0610 01/22/17 0440 Objective Remarks PE alert Abd - soft, stoma working, lower pole of wound opened NGT less Rt hand - good pulse, warm, no limitation motion A/P Assessment and Plan Imp: OOB adv diet decr IVF local wound care evaluate rt hand Nathaniel Wang MD Jan 23, 2017 21:52
[2017-01-24] VITALS: BP 158/78; PULSE 78; RESP 20; TEMP 97.8; O2SAT 95
[2017-01-24] MEDS: CLINDAMYCIN INJ 300 MG in SODIUM CHLORIDE 0.9% INJ 100 ML IV SCH ×4 (00:28→18:04)
[2017-01-24 04:00] VITALS: BP 148/86; PULSE 79; RESP 20; TEMP 97.4; O2SAT 94
[2017-01-24] MEDS: VANCOMYCIN INJ 1,250 MG in SODIUM CHLOR 0.9% 250 ML INJ 250 ML IV SCH ×2 (04:03→16:07)
[2017-01-24] MEDS: D5-NS + KCL 20 MEQ INJ 1,000 ML IV SCH ×3 (05:49→20:26)
[2017-01-24] MEDS: PCA - TOTAL MG MORPHINE DELIVERED PER SHIFT SCH (05:52)
[2017-01-24] MEDS: HEPARIN SODIUM - SQ 10,000 UNITS/ML VIAL SQ SCH ×2 (06:37→18:03)
[2017-01-24 08:00] VITALS: BP 140/65; PULSE 76; RESP 18; TEMP 98; O2SAT 95
[2017-01-24] MEDS: PANTOPRAZOLE SODIUM 40 MG VIAL IVP SCH (08:33)
[2017-01-24] MEDS: SODIUM CHLORIDE 0.9% FLUSH 5 ML FLUSH IVF SCH ×2 (08:33→20:24)
[2017-01-24] MEDS: LOSARTAN 50 MG TAB PO SCH (08:33)
--- NOTE | 2017-01-24 08:43 | HHI.PR ---
Subjective Remarks Stooling. No N or V, Minimal N/G drainage Objective Vital Signs Date Time Temp Pulse Resp B/P Pulse Ox O2 Delivery O2 Flow Rate FiO2 01/24/17 05:52 18 01/24/17 04:00 97.4 79 20 148/86 94 01/24/17 00:00 97.8 78 20 158/78 95 01/23/17 23:16 18 01/23/17 23:11 20 01/23/17 22:00 20 01/23/17 20:00 97.7 80 20 139/72 96 01/23/17 16:00 96.7 75 16 136/74 94 01/23/17 14:00 17 01/23/17 12:00 97.3 80 16 136/71 93 I/O 01/23/17 01/23/17 01/23/17 01/24/17 01/24/17 01/24/17 07:00 15:00 23:00 07:00 15:00 23:00 Intake Total 1009 ml 1596 ml 0 ml Output Total 1550 ml 1750 ml 750 ml 2600 ml Balance -541 ml -1750 ml 846 ml -2600 ml Intake Oral 90 ml 0 ml IV Total 1009 ml 1506 ml Output Urine Total 1200 ml 1650 ml 300 ml 2200 ml Stool Total 100 ml 250 ml Gastric Drainage Total 350 ml 450 ml 150 ml # Bowel Movements 0 Result Diagram: 01/20/17 0610 01/22/17 0440 Objective Remarks VS=S Abd: obese,soft,minimal pain. Lower end of incision draining sero-sanguinous only. No pus Assessment and Plan Assessment and Plan POD#8 D/C RINKMAN. D/C N/G. Start FLD. Ambulate more. Dressing changes. Rodriguez Echols MD Jan 24, 2017 08:42
[2017-01-24] MEDS: ONDANSETRON HCL 4 MG/2 ML VIAL IV PRN ×2 (10:50→20:23)
[2017-01-24 12:00] VITALS: BP 135/68; PULSE 66; RESP 19; TEMP 98.4; O2SAT 95
[2017-01-24] MEDS: ACETAMINOPHEN/HYDROcodone 325 MG/5 MG TAB PO PRN (14:48)
[2017-01-24 16:00] VITALS: BP 147/80; PULSE 72; RESP 20; TEMP 98.7; O2SAT 95
[2017-01-24 20:00] VITALS: BP 173/81; PULSE 70; RESP 17; TEMP 98; O2SAT 95
[2017-01-24] MEDS: VERAPAMIL HCL 240 MG SUSTAINED RELEASE TAB PO SCH (20:24)
[2017-01-25] VITALS: BP 156/74; PULSE 67; RESP 17; TEMP 97.6; O2SAT 96
[2017-01-25] MEDS: ACETAMINOPHEN/HYDROcodone 325 MG/5 MG TAB PO PRN (00:23)
[2017-01-25] MEDS: CLINDAMYCIN INJ 300 MG in SODIUM CHLORIDE 0.9% INJ 100 ML IV SCH ×4 (00:23→16:26)
[2017-01-25] MEDS: VANCOMYCIN INJ 1,250 MG in SODIUM CHLOR 0.9% 250 ML INJ 250 ML IV SCH ×2 (05:32→16:26)
[2017-01-25] MEDS: HEPARIN SODIUM - SQ 10,000 UNITS/ML VIAL SQ SCH ×2 (05:33→16:26)
[2017-01-25] MEDS: D5-NS + KCL 20 MEQ INJ 1,000 ML IV SCH ×2 (05:38→16:26)
[2017-01-25 08:00] VITALS: BP 139/74; PULSE 70; RESP 20; TEMP 97.4; O2SAT 95
[2017-01-25] MEDS: LOSARTAN 50 MG TAB PO SCH (08:05)
[2017-01-25] MEDS: PANTOPRAZOLE SODIUM 40 MG VIAL IVP SCH (08:05)
[2017-01-25] MEDS: SODIUM CHLORIDE 0.9% FLUSH 5 ML FLUSH IVF SCH ×2 (08:06→20:31)
--- NOTE | 2017-01-25 11:17 | HHI.PR ---
Subjective Remarks Stooling good amounts now. No N or V. Tolerating FLD. Objective Vital Signs Date Time Temp Pulse Resp B/P Pulse Ox O2 Delivery O2 Flow Rate FiO2 01/25/17 08:00 97.4 70 20 139/74 95 01/25/17 00:00 97.6 67 17 156/74 96 01/24/17 20:00 98.0 70 17 173/81 95 01/24/17 16:00 98.7 72 20 147/80 95 01/24/17 12:00 98.4 66 19 135/68 95 I/O 01/24/17 01/24/17 01/24/17 01/25/17 01/25/17 01/25/17 07:00 15:00 23:00 07:00 15:00 23:00 Intake Total 0 ml 1500 ml 1440 ml 240 ml Output Total 2600 ml 1100 ml 500 ml 450 ml Balance -2600 ml 400 ml 940 ml -210 ml Intake Oral 0 ml 600 ml 240 ml 240 ml IV Total 900 ml 1200 ml Output Urine Total 2200 ml 1100 ml Stool Total 250 ml 500 ml 450 ml Gastric Drainage Total 150 ml # Voids 1 3 # Bowel Movements 0 Result Diagram: 01/22/17 0440 Objective Remarks VS=S Abd: obese,soft,minimal pain. Lower end of incision draining sero-sanguinous only. No pus. Q-tip placed serous fluid only. No odor Assessment and Plan Assessment and Plan POD#9 Regular 1800 aminah diet. Ambulate more. Dressing changes. Rodriguez Echols MD Jan 25, 2017 11:17
[2017-01-25 12:00] VITALS: BP 142/75; PULSE 66; RESP 17; TEMP 97.9; O2SAT 96
--- NOTE | 2017-01-25 12:18 | HHI.PR ---
Subjective Remarks feeling stinging in the right 5th finger feels the wrap around his elbow is tight Objective Vital Signs Date Time Temp Pulse Resp B/P Pulse Ox O2 Delivery O2 Flow Rate FiO2 01/25/17 08:00 97.4 70 20 139/74 95 01/25/17 00:00 97.6 67 17 156/74 96 01/24/17 20:00 98.0 70 17 173/81 95 01/24/17 16:00 98.7 72 20 147/80 95 I/O 01/24/17 01/24/17 01/24/17 01/25/17 01/25/17 01/25/17 07:00 15:00 23:00 07:00 15:00 23:00 Intake Total 0 ml 1500 ml 1440 ml 240 ml Output Total 2600 ml 1100 ml 500 ml 450 ml Balance -2600 ml 400 ml 940 ml -210 ml Intake Oral 0 ml 600 ml 240 ml 240 ml IV Total 900 ml 1200 ml Output Urine Total 2200 ml 1100 ml Stool Total 250 ml 500 ml 450 ml Gastric Drainage Total 150 ml # Voids 1 3 # Bowel Movements 0 Result Diagram: 01/22/17 0440 Objective Remarks still weak ulnar motor protective wrap around elbow is not adequate and is too tight, so we'll try another one AA x O x 3 Assessment and Plan Problem List: (1) Ulnar neuropathy at elbow of right upper extremity Status: Acute Plan: the elbow extension splint for night time is perfect, continue that for 6 weeks will ask OT to try another elbow / ulnar n. protector for day time use that isn' t tight burnign / stinging is usually early sign of nerve recovering Jesus Mclaughlin III, MD Jan 25, 2017 12:18
[2017-01-25 16:00] VITALS: BP 147/67; PULSE 62; RESP 19; TEMP 98.2; O2SAT 97
[2017-01-25 20:00] VITALS: BP 142/71; PULSE 72; RESP 20; TEMP 98.9; O2SAT 97
[2017-01-25] MEDS: VERAPAMIL HCL 240 MG SUSTAINED RELEASE TAB PO SCH (20:31)
[2017-01-26] VITALS: BP 134/78; PULSE 76; RESP 20; TEMP 97.6; O2SAT 98
[2017-01-26] MEDS: ACETAMINOPHEN/HYDROcodone 325 MG/5 MG TAB PO PRN ×4 (00:16→20:19)
[2017-01-26] MEDS: CLINDAMYCIN INJ 300 MG in SODIUM CHLORIDE 0.9% INJ 100 ML IV SCH ×4 (00:17→18:01)
[2017-01-26] MEDS: VANCOMYCIN INJ 1,250 MG in SODIUM CHLOR 0.9% 250 ML INJ 250 ML IV SCH ×2 (05:06→16:23)
[2017-01-26] MEDS: HEPARIN SODIUM - SQ 10,000 UNITS/ML VIAL SQ SCH ×2 (05:07→18:00)
[2017-01-26 08:00] VITALS: BP 141/72; PULSE 65; RESP 18; TEMP 97.4; O2SAT 96
[2017-01-26] MEDS: PANTOPRAZOLE SODIUM 40 MG VIAL IVP SCH (08:51)
[2017-01-26] MEDS: LOSARTAN 50 MG TAB PO SCH (08:51)
[2017-01-26] MEDS: SODIUM CHLORIDE 0.9% FLUSH 5 ML FLUSH IVF SCH ×2 (08:52→20:19)
[2017-01-26 12:00] VITALS: BP 132/76; PULSE 60; RESP 17; TEMP 97.1; O2SAT 95
[2017-01-26] MEDS: D5-NS + KCL 20 MEQ INJ 1,000 ML IV SCH (12:37)
--- NOTE | 2017-01-26 12:51 | HHI.PR ---
Subjective Remarks feeling stinging in the right 5th finger waiting for the gel pad Objective Vital Signs Date Time Temp Pulse Resp B/P Pulse Ox O2 Delivery O2 Flow Rate FiO2 01/26/17 08:00 97.4 65 18 141/72 96 01/26/17 00:00 97.6 76 20 134/78 98 01/25/17 20:00 98.9 72 20 142/71 97 01/25/17 16:00 98.2 62 19 147/67 97 I/O 01/25/17 01/25/17 01/25/17 01/26/17 01/26/17 01/26/17 07:00 15:00 23:00 07:00 15:00 23:00 Intake Total 240 ml 1360 ml 880 ml 240 ml Output Total 450 ml 700 ml 1250 ml 350 ml Balance -210 ml 660 ml -370 ml -110 ml Intake Oral 240 ml 960 ml 480 ml 240 ml IV Total 400 ml 400 ml Output Urine Total 700 ml 650 ml 350 ml Stool Total 450 ml 600 ml # Voids 3 # Bowel Movements 0 0 Result Diagram: 01/22/17 0440 Objective Remarks fullAROM right UE no change yet AA x O x 3 Assessment and Plan Problem List: (1) Ulnar neuropathy at elbow of right upper extremity Status: Acute Plan: elbow extension splint for night time continue that for 6 weeks will ask OT to try another elbow / ulnar n. protector for day time use that isn' t tight burnign / stinging is usually early sign of nerve recovering Jesus Mclaughiln III, MD Jan 26, 2017 12:51
--- NOTE | 2017-01-26 14:32 | HHI.PR ---
Subjective Remarks POD#9 robotic extensive PEGGY, LAR, diverting ileostomy comfortable Objective Vital Signs Date Time Temp Pulse Resp B/P Pulse Ox O2 Delivery O2 Flow Rate FiO2 01/26/17 08:00 97.4 65 18 141/72 96 01/26/17 00:00 97.6 76 20 134/78 98 01/25/17 20:00 98.9 72 20 142/71 97 01/25/17 16:00 98.2 62 19 147/67 97 I/O 01/25/17 01/25/17 01/25/17 01/26/17 01/26/17 01/26/17 07:00 15:00 23:00 07:00 15:00 23:00 Intake Total 240 ml 1360 ml 880 ml 240 ml 2592 ml Output Total 450 ml 700 ml 1250 ml 350 ml Balance -210 ml 660 ml -370 ml -110 ml 2592 ml Intake Oral 240 ml 960 ml 480 ml 240 ml IV Total 400 ml 400 ml 2592 ml Output Urine Total 700 ml 650 ml 350 ml Stool Total 450 ml 600 ml # Voids 3 # Bowel Movements 0 0 Result Diagram: 01/22/17 0440 Objective Remarks Abdomen soft, nondistended tender Wounds clean stoma pink, thick output Assessment and Plan Assessment and Plan MOBILIZE Possibly home in am with Visiting Nurse Recheck labs Riddhi Llanos MD Jan 26, 2017 14:32
[2017-01-26 16:00] VITALS: BP 144/69; PULSE 63; RESP 17; TEMP 98.2; O2SAT 98
[2017-01-26 20:00] VITALS: BP 141/71; PULSE 76; RESP 20; TEMP 98.8; O2SAT 98
[2017-01-26] MEDS: VERAPAMIL HCL 240 MG SUSTAINED RELEASE TAB PO SCH (20:19)
[2017-01-27] VITALS: BP 138/76; PULSE 72; RESP 18; TEMP 97.4; O2SAT 99
[2017-01-27] MEDS: CLINDAMYCIN INJ 300 MG in SODIUM CHLORIDE 0.9% INJ 100 ML IV SCH ×4 (00:05→17:43)
[2017-01-27] MEDS: ACETAMINOPHEN/HYDROcodone 325 MG/5 MG TAB PO PRN ×3 (03:57→20:43)
[2017-01-27] MEDS: VANCOMYCIN INJ 1,250 MG in SODIUM CHLOR 0.9% 250 ML INJ 250 ML IV SCH ×2 (03:58→16:18)
[2017-01-27 05:34] LABS: BICARBONATE 30.1 MEQ/L (21.0-32.0)
[2017-01-27 05:37] LABS: POTASSIUM 2.3 MEQ/L (3.5-5.1)
[2017-01-27] MEDS: HEPARIN SODIUM - SQ 10,000 UNITS/ML VIAL SQ SCH ×2 (06:21→17:46)
[2017-01-27] MEDS: POTASSIUM CHLOR 20 MEQ PREMIX 100 ML IV PRN ×2 (07:25→12:42)
--- NOTE | 2017-01-27 07:58 | HHI.PR ---
Subjective Remarks POD#10 robotic extensive PEGGY, LAR, diverting ileostomy comfortable leakage around appliance Objective Vital Signs Date Time Temp Pulse Resp B/P Pulse Ox O2 Delivery O2 Flow Rate FiO2 01/27/17 00:00 97.4 72 18 138/76 99 01/26/17 20:00 98.8 76 20 141/71 98 01/26/17 16:00 98.2 63 17 144/69 98 01/26/17 12:00 97.1 60 17 132/76 95 01/26/17 08:00 97.4 65 18 141/72 96 I/O 01/26/17 01/26/17 01/26/17 01/27/17 01/27/17 01/27/17 07:00 15:00 23:00 07:00 15:00 23:00 Intake Total 240 ml 3052 ml 1153 ml 1496 ml Output Total 350 ml 275 ml 600 ml 500 ml Balance -110 ml 2777 ml 553 ml 996 ml Intake Oral 240 ml 460 ml 480 ml 240 ml IV Total 2592 ml 673 ml 1256 ml Output Urine Total 350 ml 350 ml 500 ml Stool Total 275 ml 250 ml # Voids 5 # Bowel Movements 0 1 0 0 Result Diagram: 01/27/17 0444 Objective Remarks Abdomen soft, nondistended tender Wounds clean stoma pink Assessment and Plan Assessment and Plan Replace K Removed bar Evaluate for inpatient rehab Riddhi Llanos MD Jan 27, 2017 07:58
[2017-01-27 08:00] VITALS: BP 127/63; PULSE 72; RESP 16; TEMP 96; O2SAT 93
[2017-01-27] MEDS: LOSARTAN 50 MG TAB PO SCH (08:53)
[2017-01-27] MEDS: PANTOPRAZOLE SODIUM 40 MG VIAL IVP SCH ×2 (08:53→09:00)
[2017-01-27] MEDS: D5-NS + KCL 20 MEQ INJ 1,000 ML IV SCH ×2 (08:54→15:36)
[2017-01-27] MEDS: SODIUM CHLORIDE 0.9% FLUSH 5 ML FLUSH IVF SCH ×2 (09:00→21:00)
[2017-01-27 11:15] LABS: BICARBONATE 30.8 MEQ/L (21.0-32.0)
[2017-01-27 11:20] LABS: POTASSIUM 2.3 MEQ/L (3.5-5.1)
[2017-01-27 12:00] VITALS: BP 133/63; PULSE 70; RESP 18; TEMP 97.3; O2SAT 96
[2017-01-27 16:00] VITALS: BP 132/72; PULSE 76; RESP 16; TEMP 98.4; O2SAT 94
[2017-01-27 20:00] VITALS: BP 160/74; PULSE 79; RESP 20; TEMP 96.8; O2SAT 94
[2017-01-27] MEDS: VERAPAMIL HCL 240 MG SUSTAINED RELEASE TAB PO SCH (20:47)
[2017-01-27] MEDS: POTASSIUM CHLOR 20 MEQ PREMIX 100 ML IV SCH (23:00)
[2017-01-28] VITALS: BP 156/81; PULSE 85; RESP 20; TEMP 98; O2SAT 95
[2017-01-28] MEDS: POTASSIUM CHLOR 20 MEQ PREMIX 100 ML IV SCH (01:00)
[2017-01-28] MEDS: VANCOMYCIN INJ 1,250 MG in SODIUM CHLOR 0.9% 250 ML INJ 250 ML IV SCH ×2 (04:00→17:18)
[2017-01-28] MEDS: CLINDAMYCIN INJ 300 MG in SODIUM CHLORIDE 0.9% INJ 100 ML IV SCH ×6 (06:00→23:25)
[2017-01-28] MEDS: HEPARIN SODIUM - SQ 10,000 UNITS/ML VIAL SQ SCH ×2 (06:13→17:18)
--- NOTE | 2017-01-28 07:17 | HHI.PR ---
Subjective Remarks POD#11 robotic extensive PEGGY, LAR, diverting ileostomy comfortable leakage improved Objective Vital Signs Date Time Temp Pulse Resp B/P Pulse Ox O2 Delivery O2 Flow Rate FiO2 01/28/17 00:00 98.0 85 20 156/81 95 01/27/17 20:00 96.8 79 20 160/74 94 01/27/17 16:00 98.4 76 16 132/72 94 01/27/17 12:00 97.3 70 18 133/63 96 01/27/17 08:00 96.0 72 16 127/63 93 I/O 01/27/17 01/27/17 01/27/17 01/28/17 01/28/17 01/28/17 07:00 15:00 23:00 07:00 15:00 23:00 Intake Total 1496 ml 1176 ml 240 ml 1045 ml Output Total 500 ml 500 ml 675 ml 200 ml Balance 996 ml 676 ml -435 ml 845 ml Intake Oral 240 ml 720 ml 240 ml 0 ml IV Total 1256 ml 456 ml 1045 ml Output Urine Total 500 ml Stool Total 500 ml 675 ml 200 ml # Voids 3 1 2 # Bowel Movements 0 Result Diagram: 01/27/17 1842 Objective Remarks Abdomen soft, nondistended tender Wounds clean stoma pink,less leakage Assessment and Plan Assessment and Plan Replace K Resume oral K Evaluate for inpatient rehab Riddhi Llanos MD Jan 28, 2017 07:17
[2017-01-28 08:00] VITALS: BP 123/68; PULSE 75; RESP 17; TEMP 96.9; O2SAT 95
[2017-01-28] MEDS: LOSARTAN 50 MG TAB PO SCH (08:35)
[2017-01-28] MEDS: PANTOPRAZOLE SODIUM 40 MG VIAL IVP SCH (08:35)
[2017-01-28] MEDS: SODIUM CHLORIDE 0.9% FLUSH 5 ML FLUSH IVF SCH ×2 (08:35→20:54)
[2017-01-28] MEDS: POTASSIUM CHLORIDE 20 MEQ CONTROLLED RELEASE TAB PO SCH ×2 (08:36→20:53)
[2017-01-28 12:00] VITALS: BP 137/70; PULSE 78; RESP 17; TEMP 96.5; O2SAT 94
[2017-01-28] MEDS: ACETAMINOPHEN/HYDROcodone 325 MG/5 MG TAB PO PRN ×2 (12:23→21:03)
[2017-01-28] MEDS: POTASSIUM CHLOR 20 MEQ PREMIX 100 ML IV PRN ×2 (15:20→20:54)
[2017-01-28 16:00] VITALS: BP 124/63; PULSE 82; RESP 16; TEMP 97.7; O2SAT 94
[2017-01-28 20:00] VITALS: BP_SYST 118; BP_SYST 130; BP_DIAS 67; BP_DIAS 76; PULSE 46; PULSE 78; RESP 17; RESP 20; TEMP 97.7; TEMP 98; O2SAT 96; O2SAT 97
[2017-01-28] MEDS: VERAPAMIL HCL 240 MG SUSTAINED RELEASE TAB PO SCH (20:53)
[2017-01-28] MEDS: D5-NS + KCL 20 MEQ INJ 1,000 ML IV SCH (23:26)
[2017-01-29] VITALS: BP 123/64; PULSE 83; RESP 17; TEMP 98.5; O2SAT 95
[2017-01-29] MEDS: VANCOMYCIN INJ 1,250 MG in SODIUM CHLOR 0.9% 250 ML INJ 250 ML IV SCH ×2 (03:37→15:58)
[2017-01-29] MEDS: HEPARIN SODIUM - SQ 10,000 UNITS/ML VIAL SQ SCH ×2 (05:11→17:53)
[2017-01-29] MEDS: CLINDAMYCIN INJ 300 MG in SODIUM CHLORIDE 0.9% INJ 100 ML IV SCH ×3 (05:11→17:52)
[2017-01-29] MEDS: POTASSIUM CHLOR 20 MEQ PREMIX 100 ML IV PRN ×2 (06:47→09:12)
[2017-01-29 08:00] VITALS: BP 131/76; PULSE 77; RESP 17; TEMP 97.9; O2SAT 94
[2017-01-29] MEDS: SODIUM CHLORIDE 0.9% FLUSH 5 ML FLUSH IVF SCH ×2 (09:00→20:04)
[2017-01-29] MEDS: LOSARTAN 50 MG TAB PO SCH (09:12)
[2017-01-29] MEDS: PANTOPRAZOLE SODIUM 40 MG VIAL IVP SCH (09:12)
[2017-01-29] MEDS: POTASSIUM CHLORIDE 20 MEQ CONTROLLED RELEASE TAB PO SCH ×2 (09:12→20:04)
[2017-01-29] MEDS: ACETAMINOPHEN/HYDROcodone 325 MG/5 MG TAB PO PRN ×2 (11:48→23:02)
[2017-01-29 12:00] VITALS: BP 141/67; PULSE 75; RESP 17; TEMP 97.3; O2SAT 95
[2017-01-29 16:00] VITALS: BP 144/67; PULSE 73; RESP 16; TEMP 97.5; O2SAT 94
--- NOTE | 2017-01-29 18:04 | HHI.PR ---
Subjective Remarks POD#12 robotic extensive PEGGY, LAR, diverting ileostomy comfortable leakage improved Objective Vital Signs Date Time Temp Pulse Resp B/P Pulse Ox O2 Delivery O2 Flow Rate FiO2 01/29/17 16:00 97.5 73 16 144/67 94 01/29/17 12:00 97.3 75 17 141/67 95 01/29/17 08:00 97.9 77 17 131/76 94 01/29/17 00:00 98.5 83 17 123/64 95 01/28/17 20:00 98.0 78 17 130/67 97 I/O 01/28/17 01/28/17 01/28/17 01/29/17 01/29/17 01/29/17 07:00 15:00 23:00 07:00 15:00 23:00 Intake Total 1045 ml 1858 ml 943 ml 865 ml 987 ml Output Total 200 ml 350 ml 300 ml 100 ml 325 ml Balance 845 ml 1508 ml 643 ml 765 ml 987 ml -325 ml Intake Oral 0 ml 720 ml 240 ml 220 ml 240 ml IV Total 1045 ml 1138 ml 703 ml 645 ml 747 ml Stool Total 200 ml 350 ml 300 ml 100 ml 325 ml # Voids 2 3 3 3 2 # Bowel Movements 0 2 Result Diagram: 01/29/17 0436 Objective Remarks Abdomen soft, nondistended tender Wounds clean Seems slightly jaundiced stoma pink, no leakage Assessment and Plan Assessment and Plan Replace K Check labs Riddhi Llanos MD Jan 29, 2017 18:04
[2017-01-29 20:00] VITALS: BP 145/68; PULSE 87; RESP 17; TEMP 98.4; O2SAT 98
[2017-01-29] MEDS: D5-NS + KCL 20 MEQ INJ 1,000 ML IV SCH (20:04)
[2017-01-29] MEDS: VERAPAMIL HCL 240 MG SUSTAINED RELEASE TAB PO SCH (20:56)
[2017-01-30] VITALS: BP 145/63; PULSE 87; RESP 17; TEMP 98.6; O2SAT 97
[2017-01-30] MEDS: CLINDAMYCIN INJ 300 MG in SODIUM CHLORIDE 0.9% INJ 100 ML IV SCH ×5 (00:19→23:13)
[2017-01-30] MEDS: VANCOMYCIN INJ 1,250 MG in SODIUM CHLOR 0.9% 250 ML INJ 250 ML IV SCH ×2 (03:39→17:06)
[2017-01-30 05:12] LABS: BICARBONATE 25.9 MEQ/L (21.0-32.0); INDIRECT BILIRUBIN 0.9 MG/DL (0.0-0.8); MAGNESIUM 1.6 MG/DL (1.5-2.5); TOTAL BILIRUBIN ADULT 4.5 MG/DL (0.2-1.0)
[2017-01-30] MEDS: HEPARIN SODIUM - SQ 10,000 UNITS/ML VIAL SQ SCH ×2 (05:35→17:09)
[2017-01-30 08:00] VITALS: BP 150/67; PULSE 75; RESP 16; TEMP 97.4; O2SAT 95
[2017-01-30] MEDS: LOSARTAN 50 MG TAB PO SCH (08:22)
[2017-01-30] MEDS: POTASSIUM CHLOR 20 MEQ PREMIX 100 ML IV PRN (08:23)
[2017-01-30] MEDS: POTASSIUM CHLORIDE 20 MEQ CONTROLLED RELEASE TAB PO SCH ×2 (08:23→20:15)
[2017-01-30] MEDS: PANTOPRAZOLE SODIUM 40 MG VIAL IVP SCH (08:30)
[2017-01-30] MEDS: SODIUM CHLORIDE 0.9% FLUSH 5 ML FLUSH IVF SCH ×2 (08:30→20:15)
[2017-01-30] MEDS ORDERED: HYDR-3516 PO (09:07)
[2017-01-30] MEDS ORDERED: POTA20TA5 PO (09:09)
--- NOTE | 2017-01-30 10:59 | PD.CONS ---
HPI History of Present Illness This is a 46 year old male with a history of diverticulitis he recently had a robotic/laparoscopic extensive lysis of adhesions, robotic left/sigmoid colectomy, robotic diverting ileostomy, takedown of splenic flexure on (01/16/17 ) with Dr. Riddhi Llanos. GI is consulted for elevated liver enzymes with T bili 4.5, direct bili 3.6, indirect bilirubin 0.9, AST 335, ALT 416, alkaline phosphatase 387. PFSH Past Medical History Diverticulitis Eczema GERD Hypertension Hyperlipidemia Insomnia Diabetic nephropathy Morbid obesity Osteoarthritis Plantar fasciitis Past Surgical History Arthroscopic left knee Arthroscopic right knee Colonoscopy Coded Allergies: Penicillin (Verified Allergy, Mild, Hives, 01/16/17) Flagyl (Verified Allergy, Unknown, 01/16/17) ORAL ONLY Niacin (Verified Allergy, Unknown, 01/16/17) Medications Allergies Coded Allergies Type Severity Reaction Last Updated Verified Penicillin Allergy Mild Hives 01/16/17 Yes Flagyl Allergy Unknown 01/16/17 Yes Niacin Allergy Unknown 01/16/17 Yes Active Scripts Medications Dose Route/Sig Days Date Category Dose Instructions Potassium Chloride Microencaps 20 Meq Tab 20 Meq PO Q12HR 01/30/17 Rx Hydrocodone-Acetaminophen 5-325 mg Tab 1-2 Tab PO Q6H PRN 01/30/17 Rx Neomycin (Neomycin Sulfate) 500 Mg Tab 500 Mg PO TID 01/16/17 Reported Clindamycin (Clindamycin HCl) 300 Mg Cap 300 Mg PO Q6H 01/16/17 Reported Percocet (Oxycodone-Acetaminophen) 5-325 mg Tab 1 Tab PO Q6H PRN 01/15/17 Reported Zaleplon 10 Mg Cap 10 Mg PO HS PRN 01/15/17 Reported Metformin (Metformin HCl) 850 Mg Tab 850 Mg PO HS 01/15/17 Reported With a meal Terazosin (Terazosin HCl) 5 Mg Cap 5 Mg PO HS 01/15/17 Reported Simvastatin 20 Mg Tab 20 Mg PO HS 01/15/17 Reported Montelukast (Montelukast Sodium) 10 Mg Tab 10 Mg PO HS 01/15/17 Reported Vitamin B-12 (Cyanocobalamin) 1,000 Mcg Tab 1,000 Mcg PO DAILY 01/15/17 Reported Iron (Ferrous Sulfate) 325 Mg Tab 325 Mg PO DAILY 01/15/17 Reported Take Potassium Chloride CR (Potassium Chloride) 10 Meq Tab 10 Meq PO BID 01/15/17 Reported Verapamil ER 24 HR (Verapamil HCl) 240 Mg Tab 240 Mg PO HS 01/15/17 Reported Losartan (Losartan Potassium) 100 Mg Tab 100 Mg PO DAILY 01/15/17 Reported Omeprazole 20 Mg Tab 20 Mg PO BID 01/15/17 Reported Vitamin C (Calcium Ascorbate) 500 Mg Tab 500 Mg PO DAILY 01/15/17 Reported Social History The use of tobacco or alcohol GI Exam Vitals I&O Vital Signs Date Time Temp Pulse Resp B/P Pulse Ox O2 Delivery O2 Flow Rate FiO2 01/30/17 08:00 97.4 75 16 150/67 95 01/30/17 00:00 98.6 87 17 145/63 97 01/29/17 20:00 98.4 87 17 145/68 98 01/29/17 16:00 97.5 73 16 144/67 94 01/29/17 12:00 97.3 75 17 141/67 95 I/O 01/29/17 01/29/17 01/29/17 01/30/17 01/30/17 01/30/17 07:00 15:00 23:00 07:00 15:00 23:00 Intake Total 865 ml 987 ml 743 ml 640 ml Output Total 100 ml 575 ml Balance 765 ml 987 ml 168 ml 640 ml Intake Oral 220 ml 240 ml 240 ml 240 ml IV Total 645 ml 747 ml 503 ml 400 ml Stool Total 100 ml 575 ml # Voids 3 2 2 2 # Bowel Movements 0 2 Laboratory Test 01/30/17 03:37 Sodium Level 140 MEQ/L Potassium Level 3.0 MEQ/L Chloride Level 106 MEQ/L Carbon Dioxide Level 25.9 MEQ/L Anion Gap 8 MEQ/L Blood Urea Nitrogen 9 MG/DL Creatinine 1.11 MG/DL Estimat Glomerular Filtration 71 ML/MIN Rate Random Glucose 141 MG/DL Calcium Level 8.0 MG/DL Magnesium Level 1.6 MG/DL Total Bilirubin 4.5 MG/DL Direct Bilirubin 3.6 MG/DL Indirect Bilirubin 0.9 MG/DL Aspartate Amino Transf 335 U/L (AST/SGOT) Alanine Aminotransferase 416 U/L (ALT/SGPT) Alkaline Phosphatase 387 U/L Total Protein 6.0 GM/DL Albumin 2.4 GM/DL Physical Examination HEENT: Pupils round and reactive to light; normocephalic; atraumatic; no jaundice. Throat is clear. NECK: Neck is supple, no JVD, no lymphadenopathy. CHEST: Chest is clear to auscultation and percussion. CARDIAC: Regular rate and rhythm with no murmur gallop or rubs. ABDOMEN: Soft, nondistended, nontender; no hepatosplenomegaly; bowel sounds are present in all four quadrants. EXTREMITIES: No clubbing, cyanosis, or edema. SKIN: Normal; no rash; no jaundice. MANAGER EVENT: No focal deficits; alert and oriented times three. Yahaira Valencia [facility] Jan 30, 2017 10:59
[2017-01-30 12:00] VITALS: BP 150/69; PULSE 75; RESP 14; TEMP 97.8; O2SAT 98
[2017-01-30] MEDS: ACETAMINOPHEN/HYDROcodone 325 MG/5 MG TAB PO PRN ×2 (14:14→23:14)
--- NOTE | 2017-01-30 15:50 | PD.CONS ---
HPI History of Present Illness This is a 46 year old male with a history of obesity, GERD, HTN, DM, ostearthritis, diverticulitis he recently had a robotic/laparoscopic extensive lysis of adhesions, robotic left/sigmoid colectomy, robotic diverting ileostomy , takedown of splenic flexure on (01/16/17) with Dr. Riddhi Llanos. GI is consulted for elevated liver enzymes with T bili 4.5, direct bili 3.6, indirect bilirubin 0.9, AST 335, ALT 416, alkaline phosphatase 387. Patient has hx of of liver abscess- S/P placement of percutaneous drain per IR 06/08/16, aside from that, patient denies hx of liver dz. He drinks on occasions. He denies abdomen pain other than the norm after having a major abdomen surgery done. He is Jaundice. He denies nausea, vomiting, or bloody stools. He has liquid stools in the ileostomy. He has chronic GERD under good control with omeprazole. (Rohini Obregon) PFSH Past Medical History Diverticulitis Eczema GERD Hypertension Hyperlipidemia Insomnia Diabetic nephropathy Morbid obesity Osteoarthritis Plantar fasciitis Past Surgical History Arthroscopic left knee Arthroscopic right knee Colonoscopy (Rohini Obregon) Coded Allergies: Penicillin (Verified Allergy, Mild, Hives, 01/16/17) Flagyl (Verified Allergy, Unknown, 01/16/17) ORAL ONLY Niacin (Verified Allergy, Unknown, 01/16/17) Medications Current Medications Medications (Trade) Dose Ordered Sig/Ketty Route Start Time Stop Time Status Last Admin (NS Flush) 2 ml UNSCH PRN IVF 01/17/17 01:00 (NS Flush) 2 ml BID IVF 01/17/17 01:00 01/27/17 21:00 ([place] 5-325 Mg) 1 tab Q6H PRN PO 01/17/17 01:00 01/29/17 11:48 ([place] 5-325 Mg) 2 tab Q6H PRN PO 01/17/17 01:00 01/30/17 14:14 (Tylenol) 650 mg Q4H PRN PO 01/17/17 01:00 (Protonix Inj) 40 mg DAILY IVP 01/17/17 09:00 01/30/17 08:30 (Zofran Inj) 4 mg Q6H PRN IV 01/17/17 01:00 01/24/17 20:23 (Vasotec Inj) 1.25 mg Q4H PRN IV 01/17/17 01:00 (Vasotec Inj) 2.5 mg Q6H PRN IV 01/17/17 01:00 Benzocaine/ Menthol 1 lozenge 1 lozenge UNSCH PRN BUCCAL 01/17/17 01:00 (KCl 20 Meq Premix Inj) 100 ml @ 50 mls/hr UNSCH PRN IV 01/17/17 01:00 01/30/17 08:23 (Heparin Inj) 5,000 units Q12H SQ 01/17/17 18:45 01/30/17 05:35 (Narcan Inj) 0.4 mg UNSCH PRN IV 01/17/17 01:00 Diphenhydramine HCl 25 mg 25 mg Q6H PRN IV 01/17/17 01:00 Vancomycin HCl 1250 mg/Sodium Chloride 262.5 ml @ 262.5 mls/ hr Q12H IV 01/17/17 04:00 01/30/17 03:39 (Cleocin Inj/NS Inj) 102 ml @ 104 mls/hr Q6H IV 01/17/17 06:00 01/30/17 05:33 (Cozaar) 100 mg DAILY PO 01/19/17 09:00 01/30/17 08:22 Verapamil HCl 240 mg 240 mg HS PO 01/18/17 21:00 01/29/17 20:56 (D5-NS + KCl 20 Meq Inj) 1,000 ml @ 50 mls/hr Q20H IV 01/19/17 05:30 01/29/17 20:04 Potassium Chloride 20 meq 20 meq Q12HR PO 01/28/17 09:00 01/30/17 08:23 (KCl 20 Meq Premix Inj) 100 ml @ 50 mls/hr Q2H PRN IV 01/28/17 15:15 01/29/17 09:12 Family History Non contributory Social History Occasional alcohol No smoking (Rohini Obregon) Review of Systems Constitutional: DENIES: Fatigue, Fever, Chills Eyes: DENIES: Double Vision Ears, nose, mouth, throat: DENIES: Hoarseness Respiratory: DENIES: Shortness of breath Cardiovascular: DENIES: Lower Extremity Edema Gastrointestinal: COMPLAINS OF: Diarrhea, DENIES: Abdominal pain, Black stools , Bloody stools, Constipation, Nausea, Vomiting, Difficulty Swallowing, Anorexia , Odynophagia, Swelling of Abdomen, Heartburn, Hematemesis Genitourinary: DENIES: Hematuria Musculoskeletal: DENIES: Neck pain Integumentary: COMPLAINS OF: Jaundice Hematologic/lymphatic: DENIES: Bruising Immunologic/allergic: DENIES: Eczema Neurologic: DENIES: Abnormal gait Psychiatric: DENIES: Anxiety (Rohini Obregon) GI Exam Vitals I&O Vital Signs Date Time Temp Pulse Resp B/P Pulse Ox O2 Delivery O2 Flow Rate FiO2 01/30/17 12:00 97.8 75 14 150/69 98 01/30/17 08:00 97.4 75 16 150/67 95 01/30/17 00:00 98.6 87 17 145/63 97 01/29/17 20:00 98.4 87 17 145/68 98 01/29/17 16:00 97.5 73 16 144/67 94 I/O 01/29/17 01/29/17 01/29/17 01/30/17 01/30/17 01/30/17 07:00 15:00 23:00 07:00 15:00 23:00 Intake Total 865 ml 987 ml 743 ml 640 ml Output Total 100 ml 575 ml Balance 765 ml 987 ml 168 ml 640 ml Intake Oral 220 ml 240 ml 240 ml 240 ml IV Total 645 ml 747 ml 503 ml 400 ml Stool Total 100 ml 575 ml # Voids 3 2 2 2 # Bowel Movements 0 2 Laboratory Test 01/30/17 03:37 Sodium Level 140 MEQ/L Potassium Level 3.0 MEQ/L Chloride Level 106 MEQ/L Carbon Dioxide Level 25.9 MEQ/L Anion Gap 8 MEQ/L Blood Urea Nitrogen 9 MG/DL Creatinine 1.11 MG/DL Estimat Glomerular Filtration 71 ML/MIN Rate Random Glucose 141 MG/DL Calcium Level 8.0 MG/DL Magnesium Level 1.6 MG/DL Total Bilirubin 4.5 MG/DL Direct Bilirubin 3.6 MG/DL Indirect Bilirubin 0.9 MG/DL Aspartate Amino Transf 335 U/L (AST/SGOT) Alanine Aminotransferase 416 U/L (ALT/SGPT) Alkaline Phosphatase 387 U/L Total Protein 6.0 GM/DL Albumin 2.4 GM/DL Physical Examination HEENT: normocephalic; atraumatic; + jaundice. Throat is clear. NECK: Neck is supple, no JVD, no lymphadenopathy. CHEST: Chest is clear to auscultation and percussion. CARDIAC: Regular rate and rhythm with no murmur gallop or rubs. ABDOMEN: Soft, nondistended, nontender; no hepatosplenomegaly; bowel sounds are present in all four quadrants.ileostomy in place EXTREMITIES: No clubbing, cyanosis, or edema. SKIN: Normal; no rash; + jaundice. CASH CONTROL SPECIALIST: No focal deficits; alert and oriented times three. (Rohini Obregon) Assessment and Plan Plan - Elevated liver enzymes with T bili 4.5, direct bili 3.6, indirect bilirubin 0.9, AST 335, ALT 416, alkaline phosphatase 387. labs consistent with biliary obstruction. Possible gallstones, biliary obstruction Patient has hx of of liver abscess- S/P placement of percutaneous drain per IR 06/08/16, aside from that, patient denies hx of liver dz. He drinks on occasions. - Jaundice- secondary to above - Diverticulitis he recently had a robotic/laparoscopic extensive lysis of adhesions, robotic left/sigmoid colectomy, robotic diverting ileostomy, takedown of splenic flexure on (01/16/17) with Dr. Riddhi Llanos. - GERD under good control with omeprazole. - hx of of liver abscess- S/P placement of percutaneous drain per IR 06/08/16, - Obesity, GERD, HTN, DM, ostearthritis, per attending Plan: - [facility] - CT of abdomen - Hepatitis panel, JESUS, ASMA, AMA, alpha-antitrypsin deficiency, celiac panel, ceruloplasmin, irons studies, AFP - LFTs in am - Further recommendation to follow based on results above - Patient seen and examined by Dr. Garcia and myself and this note is written on his behalf. (Rohini Obregon) Physician Comments Patient seen and examined Agree with above Continue with current supportive care Monitor labs Await CT of the abdomen (Antoine Garcia MD) Rohini Obregon Jan 30, 2017 15:50 Antoine Garcia MD Jan 31, 2017 00:04
[2017-01-30 16:00] VITALS: BP 151/65; PULSE 76; RESP 18; TEMP 97.9; O2SAT 97
[2017-01-30] MEDS: D5-NS + KCL 20 MEQ INJ 1,000 ML IV SCH ×2 (17:07→23:13)
[2017-01-30 17:23] LABS: TRANSFERRIN IRON PROFILE 179 MG/DL (200-360)
[2017-01-30 17:26] LABS: FERRITIN 579 NG/ML (26-388)
[2017-01-30 20:00] VITALS: BP 143/63; PULSE 77; RESP 17; TEMP 98.1; O2SAT 98
[2017-01-30] MEDS: VERAPAMIL HCL 240 MG SUSTAINED RELEASE TAB PO SCH ×2 (20:14→23:15)
[2017-01-31] VITALS: BP 159/75; PULSE 74; RESP 17; TEMP 96.5; O2SAT 96
[2017-01-31] MEDS: VANCOMYCIN INJ 1,250 MG in SODIUM CHLOR 0.9% 250 ML INJ 250 ML IV SCH ×2 (04:35→16:43)
[2017-01-31] MEDS: CLINDAMYCIN INJ 300 MG in SODIUM CHLORIDE 0.9% INJ 100 ML IV SCH ×4 (06:52→23:19)
[2017-01-31] MEDS: HEPARIN SODIUM - SQ 10,000 UNITS/ML VIAL SQ SCH ×2 (06:52→18:45)
[2017-01-31] MEDS: ACETAMINOPHEN/HYDROcodone 325 MG/5 MG TAB PO PRN ×2 (06:53→23:21)
[2017-01-31 07:15] LABS: INDIRECT BILIRUBIN 0.7 MG/DL (0.0-0.8); TOTAL BILIRUBIN ADULT 3.4 MG/DL (0.2-1.0)
[2017-01-31 08:00] VITALS: BP 141/76; PULSE 70; RESP 20; TEMP 97.5; O2SAT 97
[2017-01-31] MEDS: POTASSIUM CHLORIDE 20 MEQ CONTROLLED RELEASE TAB PO SCH ×2 (08:32→21:06)
[2017-01-31] MEDS: PANTOPRAZOLE SODIUM 40 MG VIAL IVP SCH (08:32)
[2017-01-31] MEDS: LOSARTAN 50 MG TAB PO SCH (08:32)
[2017-01-31] MEDS: SODIUM CHLORIDE 0.9% FLUSH 5 ML FLUSH IVF SCH ×2 (09:00→21:00)
[2017-01-31 12:00] VITALS: BP 142/69; PULSE 70; RESP 20; TEMP 97.3; O2SAT 96
--- NOTE | 2017-01-31 15:48 | HHI.GIFU ---
Subjective Remarks Patient comfortable in bed denies any pain no nausea or vomiting Objective Vitals I&O Vital Signs Date Time Temp Pulse Resp B/P Pulse Ox O2 Delivery O2 Flow Rate FiO2 01/31/17 12:00 97.3 70 20 142/69 96 01/31/17 08:00 97.5 70 20 141/76 97 01/31/17 00:00 96.5 74 17 159/75 96 01/30/17 20:00 98.1 77 17 143/63 98 01/30/17 16:00 97.9 76 18 151/65 97 I/O 01/30/17 01/30/17 01/30/17 01/31/17 01/31/17 01/31/17 07:00 15:00 23:00 07:00 15:00 23:00 Intake Total 640 ml 840 ml 240 ml 821 ml Output Total 1275 ml 400 ml 400 ml Balance 640 ml -435 ml 240 ml 421 ml -400 ml Intake Oral 240 ml 480 ml 240 ml 240 ml IV Total 400 ml 360 ml 581 ml Output Urine Total 600 ml Stool Total 675 ml 400 ml 400 ml # Voids 2 2 2 Laboratory Laboratory Tests Test 01/31/17 05:45 Total Bilirubin 3.4 Direct Bilirubin 2.7 Indirect Bilirubin 0.7 Aspartate Amino Transf 292 (AST/SGOT) Alanine Aminotransferase 461 (ALT/SGPT) Alkaline Phosphatase 388 Total Protein 6.3 Albumin 2.5 Tumor Marker Alpha Fetoprotein 1.9 Physical Exam HEENT: normocephalic; atraumatic; Throat is clear. NECK: Neck is supple, no JVD, no lymphadenopathy. CHEST: Chest is clear to auscultation and percussion. CARDIAC: Regular rate and rhythm with no murmur gallop or rubs. ABDOMEN: Soft, nondistended, nontender; no hepatosplenomegaly; ileostomy in good position. EXTREMITIES: No clubbing, cyanosis, or edema. SKIN: Normal; no rash. PSYCHOLOGIST MILITARY PERSONNEL: No focal deficits; alert and oriented times three. Assessment and Plan Plan - Elevated liver enzymes with T bili 4.5, direct bili 3.6, indirect bilirubin 0.9, AST 335, ALT 416, alkaline phosphatase 387. labs consistent with biliary obstruction. Possible gallstones, biliary obstruction Patient has hx of of liver abscess- S/P placement of percutaneous drain per IR 06/08/16, aside from that, patient denies hx of liver dz. He drinks on occasions. - Jaundice- secondary to above - Diverticulitis he recently had a robotic/laparoscopic extensive lysis of adhesions, robotic left/sigmoid colectomy, robotic diverting ileostomy, takedown of splenic flexure on (01/16/17) with Dr. Riddhi Llanos. - GERD under good control with omeprazole. - hx of of liver abscess- S/P placement of percutaneous drain per IR 06/08/16, - Obesity, GERD, HTN, DM, ostearthritis, per attending Plan: - [facility] - Await CT of abdomen - Hepatitis panel, JESUS, ASMA, AMA, alpha-antitrypsin deficiency, celiac panel, ceruloplasmin, irons studies, AFP -Monitor labs - Further recommendation to follow based on results above Continue with current supportive care Antoine Garcia MD Jan 31, 2017 15:48
[2017-01-31 16:00] VITALS: BP 151/64; PULSE 84; RESP 20; TEMP 97.5; O2SAT 95
[2017-01-31] MEDS ORDERED: IOHEXOL 350 MG/ML 10 ML VIAL (for RAD DIAG) IV ONE (16:20)
--- NOTE | 2017-01-31 16:41 | RADRPT ---
EXAM DATE/TIME: 01/31/2017 16:10 [facility] COMPARISON: CT ABDOMEN & PELVIS W/O CONTRAST, December 14, 2015, 3:36. CT ABDOMEN W/O CONTRAST, June 24, 2016, 18:09. INDICATIONS : Evaluate liver. IV CONTRAST: 90 cc Omnipaque 350 (iohexol) IV ORAL CONTRAST: No oral contrast ingested. RADIATION DOSE: 9.96 CTDIvol (mGy) MEDICAL HISTORY : Hypertension. Diverticulitis. Liver disorder. SURGICAL HISTORY : None. ENCOUNTER: Initial ACUITY: 1 day PAIN SCALE: 5/10 LOCATION: Bilateral abdomen. TECHNIQUE: Volumetric scanning of the abdomen and pelvis was performed. Using automated exposure control and ad justment of the mA and/or kV according to patient size, radiation dose was kept as low as reasonably achievable to obtain optimal diagnostic quality images. FINDINGS: There is an approximate 2.7 cm cyst in the right kidney no change since older exams with an appr oximate 6 mm nonobstructing stone in the left kidney. The liver, spleen, pancreas and adrenals are un remarkable. Ostomy site is present on the left side with haziness of the fat planes within the ostomy site. There are however slight areas of fluid collection mixed with gas within the subcutaneous tiss ues around the loop of bowel within the ostomy site. There is also a focal area of abscess measuring 6.2 cm in size which is gas containing fluid in the right lower quadrant which leads into the ostomy site. There is subcutaneous gas bubbles as well in right lower abdominal wall at this site extending down into bilateral groin. CONCLUSION: There is abscess in the right lower quadrant partially in midline leading into the ostomy site. Jaswant Baird MD on January 31, 2017 at 16:30 Board Certified Radiologist. This report was verified electronically.
[2017-01-31 20:00] VITALS: BP 134/63; PULSE 74; RESP 20; TEMP 98.6; O2SAT 98
[2017-01-31] MEDS: VERAPAMIL HCL 240 MG SUSTAINED RELEASE TAB PO SCH (21:06)
[2017-02-01] VITALS: BP 114/66; PULSE 75; RESP 20; TEMP 98.5; O2SAT 96
[2017-02-01] MEDS: VANCOMYCIN INJ 1,250 MG in SODIUM CHLOR 0.9% 250 ML INJ 250 ML IV SCH ×2 (02:57→16:12)
[2017-02-01] MEDS: CLINDAMYCIN INJ 300 MG in SODIUM CHLORIDE 0.9% INJ 100 ML IV SCH ×3 (05:08→16:21)
[2017-02-01] MEDS: HEPARIN SODIUM - SQ 10,000 UNITS/ML VIAL SQ SCH (05:08)
[2017-02-01 07:44] LABS: ALT (GPT) 455 U/L (12-78); ANION GAP 11 MEQ/L (5-15); AST (GOT) 272 U/L (15-37); BICARBONATE 23.3 MEQ/L (21.0-32.0); BLOOD UREA NITROGEN 10 MG/DL (7-18); CHLORIDE 104 MEQ/L (98-107); GLOMERULAR FILTRATION RATE 77 ML/MIN (>89); POTASSIUM 3.2 MEQ/L (3.5-5.1); SODIUM (NA) 138 MEQ/L (136-145)
[2017-02-01 07:46] LABS: ALKALINE PHOSPHATASE 406 U/L (45-117); HEMATOCRIT 32.8 % (39.0-51.0); MEAN CELL VOLUME 88.3 FL (80.0-100.0); MEAN CORPUSCULAR HEMOGLOBIN 29.3 PG (27.0-34.0); MEAN CORPUSCULAR HGB CONC 33.2 % (32.0-36.0); PLATELET COUNT 310 TH/MM3 (150-450); RED BLOOD COUNT 3.72 MIL/MM3 (4.50-5.90); RED CELL DISTRIBUTION WIDTH 15.7 % (11.6-17.2); REVIEW FLAG FINAL; TOTAL BILIRUBIN ADULT 2.6 MG/DL (0.2-1.0); WHITE BLOOD COUNT 6.6 TH/MM3 (4.0-11.0)
[2017-02-01 08:00] VITALS: BP 141/63; PULSE 73; RESP 20; TEMP 97.5; O2SAT 96
[2017-02-01] MEDS: SODIUM CHLORIDE 0.9% FLUSH 5 ML FLUSH IVF SCH ×2 (09:00→21:00)
[2017-02-01] MEDS: PANTOPRAZOLE SODIUM 40 MG VIAL IVP SCH (09:00)
[2017-02-01] MEDS: POTASSIUM CHLORIDE 20 MEQ CONTROLLED RELEASE TAB PO SCH ×2 (09:00→21:23)
[2017-02-01] MEDS: LOSARTAN 50 MG TAB PO SCH (09:01)
[2017-02-01] MEDS: D5-NS + KCL 20 MEQ INJ 1,000 ML IV SCH (09:21)
[2017-02-01 12:00] VITALS: BP 156/67; PULSE 66; RESP 20; TEMP 98; O2SAT 96
--- NOTE | 2017-02-01 12:01 | HHI.PR ---
Subjective Remarks POD#15 robotic extensive PEGGY, LAR, diverting ileostomy comfortable tolerating PO Ileostomy appliance holding Objective Vital Signs Date Time Temp Pulse Resp B/P Pulse Ox O2 Delivery O2 Flow Rate FiO2 02/01/17 08:00 97.5 73 20 141/63 96 02/01/17 00:00 98.5 75 20 114/66 96 01/31/17 20:00 98.6 74 20 134/63 98 01/31/17 16:00 97.5 84 20 151/64 95 01/31/17 12:00 97.3 70 20 142/69 96 I/O 01/31/17 01/31/17 01/31/17 02/01/17 02/01/17 02/01/17 07:00 15:00 23:00 07:00 15:00 23:00 Intake Total 821 ml 120 ml 120 ml Output Total 400 ml 1000 ml 0 ml 2 ml Balance 421 ml -1000 ml 120 ml 118 ml Intake Oral 240 ml 120 ml 120 ml IV Total 581 ml Stool Total 400 ml 1000 ml 0 ml 2 ml # Voids 2 1 2 # Bowel Movements 2 Result Diagram: 02/01/17 0557 02/01/17 0557 Objective Remarks Abdomen soft, nondistended tender Jaundice improved Wound below ileostomy opened, drained fluid without pus, packed Stoma pink, functional Assessment and Plan Assessment and Plan Await GI input. OK to go home if ok with GI [facility] for dressing change and ileostomy care Patient will need packing of wound below ileostomy with wet-dry dressing daily I will see in office Riddhi Llanos MD Feb 01, 2017 12:01
[2017-02-01 16:00] VITALS: BP 127/58; PULSE 68; RESP 20; TEMP 97.5; O2SAT 97
[2017-02-01] MEDS: ACETAMINOPHEN/HYDROcodone 325 MG/5 MG TAB PO PRN ×2 (16:20→23:35)
[2017-02-01 20:44] VITALS: BP 122/74; PULSE 73; RESP 20; TEMP 97.8; O2SAT 99
[2017-02-01] MEDS: VERAPAMIL HCL 240 MG SUSTAINED RELEASE TAB PO SCH (21:23)
--- NOTE | 2017-02-01 23:55 | HHI.GIFU ---
Subjective Remarks Comfortable in bed denies any pain Objective Vitals I&O Vital Signs Date Time Temp Pulse Resp B/P Pulse Ox O2 Delivery O2 Flow Rate FiO2 02/01/17 20:44 97.8 73 20 122/74 99 02/01/17 16:00 97.5 68 20 127/58 97 02/01/17 12:00 98.0 66 20 156/67 96 02/01/17 08:00 97.5 73 20 141/63 96 02/01/17 00:00 98.5 75 20 114/66 96 I/O 01/31/17 01/31/17 01/31/17 02/01/17 02/01/17 02/01/17 07:00 15:00 23:00 07:00 15:00 23:00 Intake Total 821 ml 120 ml 120 ml 440 ml Output Total 400 ml 1000 ml 0 ml 2 ml Balance 421 ml -1000 ml 120 ml 118 ml 440 ml Intake Oral 240 ml 120 ml 120 ml 440 ml IV Total 581 ml Stool Total 400 ml 1000 ml 0 ml 2 ml # Voids 2 1 2 3 # Bowel Movements 2 3 Laboratory Laboratory Tests Test 02/01/17 05:57 White Blood Count 6.6 Red Blood Count 3.72 Hemoglobin 10.9 Hematocrit 32.8 Mean Corpuscular Volume 88.3 Mean Corpuscular Hemoglobin 29.3 Mean Corpuscular Hemoglobin 33.2 Concent Red Cell Distribution Width 15.7 Platelet Count 310 Mean Platelet Volume 8.9 Sodium Level 138 Potassium Level 3.2 Chloride Level 104 Carbon Dioxide Level 23.3 Anion Gap 11 Blood Urea Nitrogen 10 Creatinine 1.04 Estimat Glomerular Filtration 77 Rate Random Glucose 136 Calcium Level 8.6 Total Bilirubin 2.6 Aspartate Amino Transf 272 (AST/SGOT) Alanine Aminotransferase 455 (ALT/SGPT) Alkaline Phosphatase 406 Total Protein 6.4 Albumin 2.5 Imaging Last Impressions Abdomen/Pelvis CT 01/30/17 0000 Signed Impressions: Service Date/Time: Tuesday, January 31, 2017 16:10 - CONCLUSION: There is abscess in the right lower quadrant partially in midline leading into the ostomy site. Jaswant Baird MD Physical Exam HEENT: normocephalic; atraumatic; Throat is clear. NECK: Neck is supple, no JVD, no lymphadenopathy. CHEST: Chest is clear to auscultation and percussion. CARDIAC: Regular rate and rhythm with no murmur gallop or rubs. ABDOMEN: Soft, nondistended, nontender; no hepatosplenomegaly; ileostomy in good position. EXTREMITIES: No clubbing, cyanosis, or edema. SKIN: Normal; no rash. 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 Assessment and Plan Plan - Elevated liver enzymes with T bili 4.5, direct bili 3.6, indirect bilirubin 0.9, AST 335, ALT 416, alkaline phosphatase 387. labs consistent with biliary obstruction. Possible gallstones, biliary obstruction Patient has hx of of liver abscess- S/P placement of percutaneous drain per IR 06/08/16, aside from that, patient denies hx of liver dz. He drinks on occasions. - Jaundice- secondary to above - Diverticulitis he recently had a robotic/laparoscopic extensive lysis of adhesions, robotic left/sigmoid colectomy, robotic diverting ileostomy, takedown of splenic flexure on (01/16/17) with Dr. Riddhi Llanos. - GERD under good control with omeprazole. - hx of of liver abscess- S/P placement of percutaneous drain per IR 06/08/16, - Obesity, GERD, HTN, DM, ostearthritis, per attending Plan: - DARWIN - Await CT of abdomen showing abscess in the pelvis but otherwise unremarkable - Hepatitis panel, JESUS, ASMA, AMA, alpha-antitrypsin deficiency, celiac panel, ceruloplasmin, irons studies, AFP -Monitor labs -At this point most likely cause of LFT elevation is either medications or the infection or both I think it makes more sense to pursue a liver biopsy at this point prior to discharge in order to further evaluate LFT elevation this was ordered for tomorrow Continue with current supportive care Antoine Garcia MD Feb 01, 2017 23:55
[2017-02-02] VITALS: BP 141/68; PULSE 73; RESP 19; TEMP 98; O2SAT 93
[2017-02-02] MEDS: CLINDAMYCIN INJ 300 MG in SODIUM CHLORIDE 0.9% INJ 100 ML IV SCH ×5 (00:21→22:57)
[2017-02-02] MEDS: VANCOMYCIN INJ 1,250 MG in SODIUM CHLOR 0.9% 250 ML INJ 250 ML IV SCH ×2 (04:05→16:19)
[2017-02-02] MEDS: D5-NS + KCL 20 MEQ INJ 1,000 ML IV SCH ×2 (04:07→22:59)
[2017-02-02] MEDS: HEPARIN SODIUM - SQ 10,000 UNITS/ML VIAL SQ SCH ×3 (05:34→12:04)
[2017-02-02 06:00] LABS: HEMATOCRIT 30.3 % (39.0-51.0); MEAN CELL VOLUME 87.6 FL (80.0-100.0); MEAN CORPUSCULAR HEMOGLOBIN 29.8 PG (27.0-34.0); PLATELET COUNT 299 TH/MM3 (150-450); PROTHROMBIN TIME - PATIENT 10.8 SEC (9.8-11.6); RED BLOOD COUNT 3.45 MIL/MM3 (4.50-5.90); RED CELL DISTRIBUTION WIDTH 15.7 % (11.6-17.2); REVIEW FLAG FINAL; WHITE BLOOD COUNT 6.7 TH/MM3 (4.0-11.0)
[2017-02-02 06:24] LABS: ALKALINE PHOSPHATASE 400 U/L (45-117); ALT (GPT) 447 U/L (12-78); ANION GAP 9 MEQ/L (5-15); AST (GOT) 231 U/L (15-37); BICARBONATE 26.1 MEQ/L (21.0-32.0); BLOOD UREA NITROGEN 12 MG/DL (7-18); CHLORIDE 104 MEQ/L (98-107); GLOMERULAR FILTRATION RATE 70 ML/MIN (>89); POTASSIUM 3.3 MEQ/L (3.5-5.1); SODIUM (NA) 139 MEQ/L (136-145); TOTAL BILIRUBIN ADULT 1.8 MG/DL (0.2-1.0)
[2017-02-02 08:00] VITALS: BP 135/65; PULSE 70; RESP 16; TEMP 97.5; O2SAT 95
[2017-02-02] MEDS: SODIUM CHLORIDE 0.9% FLUSH 5 ML FLUSH IVF SCH ×2 (09:00→21:00)
[2017-02-02] MEDS: LOSARTAN 50 MG TAB PO SCH (09:08)
[2017-02-02] MEDS: POTASSIUM CHLORIDE 20 MEQ CONTROLLED RELEASE TAB PO SCH ×2 (09:08→21:46)
[2017-02-02] MEDS: PANTOPRAZOLE SODIUM 40 MG VIAL IVP SCH (09:09)
--- NOTE | 2017-02-02 11:06 | HHI.GIFU ---
Subjective Remarks Resting in bed. States pain controlled. Liver biopsy was scheduled for today, but states the nurse has to check with IR because he received heparin. (Yahaira Valencia) Objective Vitals I&O Vital Signs Date Time Temp Pulse Resp B/P Pulse Ox O2 Delivery O2 Flow Rate FiO2 02/02/17 08:00 97.5 70 16 135/65 95 02/02/17 00:51 18 02/02/17 00:00 98.0 73 19 141/68 93 02/01/17 20:44 97.8 73 20 122/74 99 02/01/17 16:00 97.5 68 20 127/58 97 02/01/17 12:00 98.0 66 20 156/67 96 I/O 02/01/17 02/01/17 02/01/17 02/02/17 02/02/17 02/02/17 07:00 15:00 23:00 07:00 15:00 23:00 Intake Total 120 ml 440 ml 3439 ml 240 ml 625 ml Output Total 2 ml 100 ml 100 ml Balance 118 ml 440 ml 3339 ml 140 ml 625 ml Intake Oral 120 ml 440 ml 240 ml 240 ml IV Total 3199 ml 625 ml Stool Total 2 ml 100 ml 100 ml # Voids 2 3 2 2 # Bowel Movements 3 Laboratory Laboratory Tests Test 02/02/17 04:40 White Blood Count 6.7 Red Blood Count 3.45 Hemoglobin 10.3 Hematocrit 30.3 Mean Corpuscular Volume 87.6 Mean Corpuscular Hemoglobin 29.8 Mean Corpuscular Hemoglobin 34.0 Concent Red Cell Distribution Width 15.7 Platelet Count 299 Mean Platelet Volume 8.9 Prothrombin Time 10.8 Prothromb Time International 1.0 Ratio Sodium Level 139 Potassium Level 3.3 Chloride Level 104 Carbon Dioxide Level 26.1 Anion Gap 9 Blood Urea Nitrogen 12 Creatinine 1.12 Estimat Glomerular Filtration 70 Rate Random Glucose 137 Calcium Level 8.2 Total Bilirubin 1.8 Aspartate Amino Transf 231 (AST/SGOT) Alanine Aminotransferase 447 (ALT/SGPT) Alkaline Phosphatase 400 Total Protein 6.4 Albumin 2.6 Imaging Last Impressions Abdomen/Pelvis CT 01/30/17 0000 Signed Impressions: Service Date/Time: Tuesday, January 31, 2017 16:10 - CONCLUSION: There is abscess in the right lower quadrant partially in midline leading into the ostomy site. Jaswant Baird MD Physical Exam HEENT: Normocephalic; atraumatic CARDIAC: RRR ABDOMEN: Soft, nondistended, mild lower abdominal tenderness. colostomy left lower abdomen- brown stool; no hepatosplenomegaly; ileostomy in good position. EXTREMITIES: No clubbing, cyanosis, or edema. SKIN: Normal; no rash. 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 (Yahaira Valencia) Assessment and Plan Plan ASSESSMENT: - Elevated liver enzymes. Abdomen/Pelvis CT (01/30/17)---> There is abscess in the right lower quadrant partially in midline leading into the ostomy site. Occasional ETOH use. Hepatitis profile pending, JESUS pending, AMA pending, ASMA pending, Celiac panel pending, AFP 1.9, Ceruloplasmin pending, ALpha 1 Antitrypsin pending. Iron Saturation 14.4, ferritin 579, LFTs trending down, T. Bili 1.8, AST 231, ALT 447, ALk Phosph 400. Likely this is related to infection/abx. Liver biopsy scheduled for today. Pt states nurse is checking with IR because he had heparin this am. - Diverticulitis with abscess formation. S/P Robotic/laparoscopic extensive lysis of adhesions, robotic left/sigmoid colectomy, robotic diverting ileostomy , takedown of splenic flexure on (01/16/17) with Dr. Riddhi Llanos. - GERD. PPI - Obesity, GERD, HTN, DM, ostearthritis, per attending Plan: - NPO for possible liver biopsy - Await liver workup- Hepatitis panel, JESUS, ASMA, AMA, alpha-antitrypsin deficiency, celiac panel, ceruloplasmin - Monitor LFTs - At this point most likely cause of LFT elevation is either medications or the infection, but will await results of liver biopsy - Abx per CRS, Cleocin/Vanco - Continue with current supportive care - Pt seen and examined by Dr. Jaramillo and myself and this note is written on his behalf (Yahaira Valencia) Physician Comments Seen and examined with NICOLE, awaiting liver biopsy for elevated LFTs.Monitor labs. (Deion Jaramillo MD) Yahaira Valencia February 02, 2017 11:06 Deion Jaramillo MD February 03, 2017 15:15
[2017-02-02 12:00] VITALS: BP 144/75; PULSE 67; RESP 18; TEMP 97.3; O2SAT 96
--- NOTE | 2017-02-02 14:53 | HHI.PR ---
Subjective Remarks POD#16 robotic extensive PEGGY, LAR, diverting ileostomy comfortable awaiting CT guided liver biopsy Objective Vital Signs Date Time Temp Pulse Resp B/P Pulse Ox O2 Delivery O2 Flow Rate FiO2 02/02/17 12:00 97.3 67 18 144/75 96 02/02/17 08:00 97.5 70 16 135/65 95 02/02/17 00:51 18 02/02/17 00:00 98.0 73 19 141/68 93 02/01/17 20:44 97.8 73 20 122/74 99 02/01/17 16:00 97.5 68 20 127/58 97 I/O 02/01/17 02/01/17 02/01/17 02/02/17 02/02/17 02/02/17 07:00 15:00 23:00 07:00 15:00 23:00 Intake Total 120 ml 440 ml 3439 ml 240 ml 625 ml Output Total 2 ml 100 ml 100 ml Balance 118 ml 440 ml 3339 ml 140 ml 625 ml Intake Oral 120 ml 440 ml 240 ml 240 ml IV Total 3199 ml 625 ml Stool Total 2 ml 100 ml 100 ml # Voids 2 3 2 2 # Bowel Movements 3 Result Diagram: 02/02/17 0440 02/02/17 0440 Objective Remarks Abdomen soft, nondistended tender Wound below ileostomy repacked, murky drainage without kailyn pus Stoma pink, functional Assessment and Plan Assessment and Plan Await liver biopsy per GI Riddhi Llanos MD February 02, 2017 14:53
[2017-02-02 16:00] VITALS: BP 155/77; PULSE 69; RESP 18; TEMP 97.2; O2SAT 97
[2017-02-02 16:32] LABS: ANA SCREEN NEG (NEG)
[2017-02-02 20:00] VITALS: BP 145/83; PULSE 78; RESP 19; TEMP 96.5; O2SAT 94
[2017-02-02] MEDS: VERAPAMIL HCL 240 MG SUSTAINED RELEASE TAB PO SCH (21:46)
[2017-02-02] MEDS: ACETAMINOPHEN/HYDROcodone 325 MG/5 MG TAB PO PRN (22:57)
[2017-02-03] VITALS (10 sets, daily range): BP systolic 116–161; BP diastolic 56–79; PULSE 65–76; RESP 16–19; TEMP 96.4–98.3; O2SAT 94–98
[2017-02-03] MEDS: HEPARIN SODIUM - SQ 10,000 UNITS/ML VIAL SQ SCH ×3 (04:29→20:55)
[2017-02-03] MEDS: VANCOMYCIN INJ 1,250 MG in SODIUM CHLOR 0.9% 250 ML INJ 250 ML IV SCH ×2 (04:29→16:01)
[2017-02-03] MEDS: CLINDAMYCIN INJ 300 MG in SODIUM CHLORIDE 0.9% INJ 100 ML IV SCH ×4 (04:30→22:48)
[2017-02-03] MEDS: D5-NS + KCL 20 MEQ INJ 1,000 ML IV SCH (04:31)
[2017-02-03] MEDS: LOSARTAN 50 MG TAB PO SCH (07:30)
[2017-02-03] MEDS: SODIUM CHLORIDE 0.9% FLUSH 5 ML FLUSH IVF SCH ×2 (07:31→20:53)
[2017-02-03] MEDS: POTASSIUM CHLORIDE 20 MEQ CONTROLLED RELEASE TAB PO SCH ×2 (07:31→20:53)
[2017-02-03] MEDS: PANTOPRAZOLE SODIUM 40 MG VIAL IVP SCH (07:31)
[2017-02-03] MEDS ORDERED: fentaNYL CITRATE 250 MCG/5 ML AMP ONE (09:33)
[2017-02-03] MEDS ORDERED: MIDAZOLAM HCL 5 MG/5 ML VIAL ONE (09:33)
[2017-02-03] MEDS: ACETAMINOPHEN/HYDROcodone 325 MG/5 MG TAB PO PRN ×2 (10:27→22:48)
--- NOTE | 2017-02-03 12:27 | RADRPT ---
EXAM DATE/TIME: 02/03/2017 09:48 [place] COMPARISON: No previous studies available for comparison. INDICATIONS : Elevated liver functions SEDATION TIME: 15 minutes BIOPSY SITE: liver MEDICATION(S): 1.) 1.5 mg midazolam (Versed) IV 2.) 75 mcg fentanyl (Sublimaze) IV DEVICE(S): 1.) 18 gauge Temno core biopsy needle MEDICAL HISTORY : Carcinoma, colon. SURGICAL HISTORY : Colostomy. ENCOUNTER: Initial ACUITY: 1 day PAIN SCORE: 0/10 LOCATION: Right lobe of the liver A total of one core specimen(s) were obtained and sent to the laboratory for pathologic evaluation. PROCEDURE: 1. CT guided liver biopsy. Prior to the procedure informed consent was obtained. Any appropriate prior imaging studies were rev iewed. Using automated exposure control and adjustment of the mA and/or kV according to patient size, radiat ion dose was kept as low as reasonably achievable to obtain optimal diagnostic quality images. The site was prepped in a sterile fashion. Full sterile technique was used, including cap, mask, deedee rile gloves and gown and a large sterile sheet. Hand hygiene and 2% chlorhexidine and/or betadine/al cohol prep was utilized per protocol for cutaneous antisepsis. The skin and subcutaneous tissues wer e infiltrated with local anesthetic solution. With CT guidance the previously identified target was localized. Biopsy was performed using the presc ribed needle as above. Adequate hemostasis was obtained with compression at the puncture site. Follow-up CT scan reveals no hemorrhage. The patient tolerated the procedure well and there were no complications. The patient was returned to the Radiology Outpatient Unit in stable condition. CONCLUSION: Uncomplicated CT guided biopsy. Mio Delgado MD on February 03, 2017 at 12:25 Board Certified Radiologist. This report was verified electronically.
--- NOTE | 2017-02-03 14:13 | HHI.GIFU ---
Subjective Remarks Resting in bed. No n/v, no abdominal pain. Had liver biopsy earlier today. ( Yahaira Valencia) Objective Vitals I&O Vital Signs Date Time Temp Pulse Resp B/P Pulse Ox O2 Delivery O2 Flow Rate FiO2 02/03/17 12:05 76 18 134/71 95 02/03/17 12:00 96.4 75 18 161/79 97 02/03/17 11:35 74 18 132/67 95 02/03/17 11:27 18 02/03/17 11:05 69 18 127/58 94 02/03/17 10:35 74 16 129/56 95 02/03/17 10:20 97.9 75 18 127/57 96 02/03/17 08:00 97.3 75 16 116/62 97 02/03/17 00:00 98.3 65 19 138/76 95 02/02/17 23:57 18 02/02/17 20:00 96.5 78 19 145/83 94 02/02/17 16:00 97.2 69 18 155/77 97 I/O 02/02/17 02/02/17 02/02/17 02/03/17 02/03/17 02/03/17 07:00 15:00 23:00 07:00 15:00 23:00 Intake Total 240 ml 625 ml 120 ml 120 ml Output Total 100 ml 100 ml 150 ml Balance 140 ml 625 ml 20 ml -30 ml Intake Oral 240 ml 120 ml 120 ml IV Total 625 ml Stool Total 100 ml 100 ml 150 ml # Voids 2 2 1 0 Imaging Last Impressions Liver Biopsy CT 02/03/17 0924 Signed Impressions: Service Date/Time: Friday, February 03, 2017 09:48 - CONCLUSION: Uncomplicated CT guided biopsy. Mio Delgado MD Abdomen/Pelvis CT 01/30/17 0000 Signed Impressions: Service Date/Time: Tuesday, January 31, 2017 16:10 - CONCLUSION: There is abscess in the right lower quadrant partially in midline leading into the ostomy site. Jaswant Baird MD Physical Exam HEENT: Normocephalic; atraumatic CARDIAC: RRR ABDOMEN: Soft, nondistended, mild lower abdominal tenderness. colostomy left lower abdomen- brown stool; no hepatosplenomegaly; EXTREMITIES: No clubbing, cyanosis, or edema. SKIN: Normal; no rash. 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 (Yahaira Valencia) Assessment and Plan Plan ASSESSMENT: - Elevated liver enzymes. Abdomen/Pelvis CT (01/30/17)---> There is abscess in the right lower quadrant partially in midline leading into the ostomy site. Occasional ETOH use. Hepatitis profile pending, JESUS negative, AMA pending, ASMA pending, Celiac panel pending, AFP 1.9, Ceruloplasmin pending, ALpha 1 Antitrypsin pending. Iron Saturation 14.4, ferritin 579, LFTs trending down. Likely this is related to infection/abx. Liver biopsy was done earlier today (postponed yesterday because he had received heparin). Will await pathology results and monitor LFTs. - Diverticulitis with abscess formation. S/P Robotic/laparoscopic extensive lysis of adhesions, robotic left/sigmoid colectomy, robotic diverting ileostomy , takedown of splenic flexure on (01/16/17) with Dr. Riddhi Llanos. - GERD. PPI - Obesity, GERD, HTN, DM, ostearthritis, per attending Plan: - DARWIN - Await pathology from liver biopsy - Await liver workup- ASMA, AMA, alpha-antitrypsin deficiency, celiac panel, ceruloplasmin - Monitor LFTs - At this point most likely cause of LFT elevation is either medications or the infection, but will await results of liver biopsy - Continue with current supportive care - Pt seen and examined by Dr. Jaramillo and myself and this note is written on his behalf (Yahaira Valencia) Physician Comments Seen and examined with NICOLE, s/p liver biopsy. Await results. (Deion Jaramillo MD) Yahaira Valencia February 03, 2017 14:13 Deion Jaramillo MD February 03, 2017 15:44
[2017-02-03] MEDS: VERAPAMIL HCL 240 MG SUSTAINED RELEASE TAB PO SCH (20:53)
[2017-02-04] VITALS: BP 142/67; PULSE 71; RESP 19; TEMP 97.7; O2SAT 97
[2017-02-04] MEDS: VANCOMYCIN INJ 1,250 MG in SODIUM CHLOR 0.9% 250 ML INJ 250 ML IV SCH ×2 (03:21→14:49)
[2017-02-04] MEDS: CLINDAMYCIN INJ 300 MG in SODIUM CHLORIDE 0.9% INJ 100 ML IV SCH ×3 (03:21→18:00)
[2017-02-04 06:46] LABS: INDIRECT BILIRUBIN 0.5 MG/DL (0.0-0.8); TOTAL BILIRUBIN ADULT 1.4 MG/DL (0.2-1.0)
[2017-02-04] MEDS: POTASSIUM CHLORIDE 20 MEQ CONTROLLED RELEASE TAB PO SCH (07:58)
[2017-02-04] MEDS: LOSARTAN 50 MG TAB PO SCH (07:58)
[2017-02-04] MEDS: PANTOPRAZOLE SODIUM 40 MG VIAL IVP SCH (07:59)
[2017-02-04] MEDS: SODIUM CHLORIDE 0.9% FLUSH 5 ML FLUSH IVF SCH (07:59)
[2017-02-04 08:00] VITALS: BP 138/68; PULSE 67; RESP 17; TEMP 96.3; O2SAT 94
--- NOTE | 2017-02-04 08:51 | HHI.PR ---
Subjective Remarks POD#18 robotic extensive PEGGY, LAR, diverting ileostomy comfortable awaiting ok for d/c from GI Objective Vital Signs Date Time Temp Pulse Resp B/P Pulse Ox O2 Delivery O2 Flow Rate FiO2 02/04/17 08:00 96.3 67 17 138/68 94 02/04/17 00:00 97.7 71 19 142/67 97 02/03/17 20:00 97.8 73 19 140/74 96 02/03/17 16:00 97.5 67 17 134/70 98 02/03/17 12:05 76 18 134/71 95 02/03/17 12:00 96.4 75 18 161/79 97 02/03/17 11:35 74 18 132/67 95 02/03/17 11:27 18 02/03/17 11:05 69 18 127/58 94 02/03/17 10:35 74 16 129/56 95 02/03/17 10:20 97.9 75 18 127/57 96 I/O 02/03/17 02/03/17 02/03/17 02/04/17 02/04/17 02/04/17 07:00 15:00 23:00 07:00 15:00 23:00 Intake Total 120 ml 480 ml 1605 ml 495 ml Output Total 150 ml 550 ml 200 ml 200 ml Balance -30 ml -70 ml 1405 ml 295 ml Intake Oral 120 ml 480 ml 240 ml 120 ml IV Total 880 ml 375 ml Tube Feeding 485 ml Stool Total 150 ml 550 ml 200 ml 200 ml # Voids 0 3 2 2 Result Diagram: 02/02/170 02/02/17 0440 Objective Remarks Abdomen soft, nondistended tender Wound below ileostomy repacked, clean Stoma pink, functional Assessment and Plan Assessment and Plan D/C today if ok with GI Followup with me 1 week Riddhi Llanos MD February 04, 2017 08:51
--- NOTE | 2017-02-04 11:43 | HHI.GIFU ---
Subjective Remarks Resting in bed. No n/v. Tolerating diet. No abdominal pain at this time. Wants to go home. (Yahaira Valencia) Objective Vitals I&O Vital Signs Date Time Temp Pulse Resp B/P Pulse Ox O2 Delivery O2 Flow Rate FiO2 02/04/17 08:00 96.3 67 17 138/68 94 02/04/17 00:00 97.7 71 19 142/67 97 02/03/17 20:00 97.8 73 19 140/74 96 02/03/17 16:00 97.5 67 17 134/70 98 02/03/17 12:05 76 18 134/71 95 02/03/17 12:00 96.4 75 18 161/79 97 I/O 02/03/17 02/03/17 02/03/17 02/04/17 02/04/17 02/04/17 07:00 15:00 23:00 07:00 15:00 23:00 Intake Total 120 ml 480 ml 1605 ml 495 ml Output Total 150 ml 550 ml 200 ml 200 ml Balance -30 ml -70 ml 1405 ml 295 ml Intake Oral 120 ml 480 ml 240 ml 120 ml IV Total 880 ml 375 ml Tube Feeding 485 ml Stool Total 150 ml 550 ml 200 ml 200 ml # Voids 0 3 2 2 Laboratory Laboratory Tests Test 02/04/17 05:03 Total Bilirubin 1.4 Direct Bilirubin 0.9 Indirect Bilirubin 0.5 Aspartate Amino Transf 182 (AST/SGOT) Alanine Aminotransferase 407 (ALT/SGPT) Alkaline Phosphatase 336 Total Protein 6.4 Albumin 2.8 Imaging Last Impressions Liver Biopsy CT 02/03/17 0924 Signed Impressions: Service Date/Time: Friday, February 03, 2017 09:48 - CONCLUSION: Uncomplicated CT guided biopsy. Mio Delgado MD Abdomen/Pelvis CT 01/30/17 0000 Signed Impressions: Service Date/Time: Tuesday, January 31, 2017 16:10 - CONCLUSION: There is abscess in the right lower quadrant partially in midline leading into the ostomy site. Jaswant Baird MD Physical Exam HEENT: Normocephalic; atraumatic CARDIAC: RRR ABDOMEN: Soft, nondistended, mild lower abdominal tenderness. colostomy left lower abdomen- brown stool; no hepatosplenomegaly; EXTREMITIES: No clubbing, cyanosis, or edema. SKIN: Normal; no rash. 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 (Yahaira Valencia) Assessment and Plan Plan ASSESSMENT: - Elevated liver enzymes. Abdomen/Pelvis CT (01/30/17)---> There is abscess in the right lower quadrant partially in midline leading into the ostomy site. Occasional ETOH use. Hepatitis profile pending, JESUS negative, AMA pending, ASMA negative, Celiac panel negative, AFP 1.9, Ceruloplasmin pending, ALpha 1 Antitrypsin 201. Iron Saturation 14.4, ferritin 579. Likely this is related to infection/abx. Liver biopsy (02/03/17), pathology pending. LFTs are trending down. T. bili 1.4, AST 182, ALT 407, Alk Phosph 336. - Diverticulitis with abscess formation. S/P Robotic/laparoscopic extensive lysis of adhesions, robotic left/sigmoid colectomy, robotic diverting ileostomy , takedown of splenic flexure on (01/16/17) with Dr. Riddhi Llanos. - GERD. PPI - Obesity, GERD, HTN, DM, ostearthritis, per attending Plan: - At this point most likely cause of LFT elevation is either medications or the infection, but will await results of liver biopsy - Okay to d/c home from GI standpoint - Await pathology from liver biopsy - Await liver workup- AMA, ceruloplasmin - FU ROMULO 1-2 weeks, no etoh, no herbal supplements- d/w patient importance of FU - Pt seen and examined by Dr. Jaramillo and myself and this note is written on his behalf (Yahaira Valencia) Physician Comments Seen and examined with NICOLE, doing well over all. Lfts stable. Liver biopsy-p. Can dc home with repeat lfts in 1 week and gi fu in 02 weeks. Thank you ( Deion Jaramillo MD) Yahaira Valencia February 04, 2017 11:43 Deion Jaramillo MD February 04, 2017 13:26
[2017-02-04 12:00] VITALS: BP_SYST 122; BP_SYST 136; BP_DIAS 58; BP_DIAS 81; PULSE 73; RESP 16; TEMP 97.7; O2SAT 97
[2017-02-04 16:00] VITALS: BP 136/68; PULSE 69; RESP 17; TEMP 96.9; O2SAT 93
[2017-02-04] MEDS: D5-NS + KCL 20 MEQ INJ 1,000 ML IV SCH (16:54)
[2017-02-04] MEDS: HEPARIN SODIUM - SQ 10,000 UNITS/ML VIAL SQ SCH (18:45)
[2017-02-06 15:53] LABS: MITOCHONDRIAL ABS LESS THAN 20.0 U (())
--- NOTE | 2017-03-18 11:16 | MD ---
cc: QUOC MCCANN M.D. ADMISSION DATE: 01/16/2017 DISCHARGE DATE: 02/04/2017 ADMISSION DIAGNOSIS 1. Chronic diverticulitis. 2. Hypertension. 3. Diabetes. 4. Chronic kidney disease. 5. Gastroesophageal reflux disease. 6. Morbid obesity. DISCHARGE DIAGNOSIS 1. Chronic diverticulitis. 2. Hypertension. 3. Diabetes. 4. Chronic kidney disease. 5. Gastroesophageal reflux disease. 6. Morbid obesity. PROCEDURES 1. Cystoscopy with placement of bilateral ureteral catheters. 2. Robotic/laparoscopic extensive lysis of adhesions. 3. Robotic left/sigmoid colectomy 4. Robotic diverting ileostomy. 5. Takedown of splenic flexure. BRIEF HISTORY The patient is a morbidly obese 46-year-old male who about 4-6 months prior to this admission had a severe case of diverticulitis with microperforation and hepatic abscess. HOSPITAL COURSE He was admitted to the hospital on 01/16/2017 after an outpatient bowel prep and underwent the above-named procedures. Intraoperative findings included adhesions of the peritoneal cavity and pelvis to the small bowel, abdominal wall, omentum and colon as well as a small abscess. The liver was not able to be visualized. Postoperatively the patient had a fairly prolonged course which was partially due to his resistance to mobility. Prior to discharge he was noted to have a little bump in his liver functions a week or two after surgery and gastroenterology was consulted. They felt that this was secondary to his chronic infection and use of antibiotics and this did actually begin to stabilize and improve prior to discharge. He was discharged to home with instructions to follow-up with both gastroenterology and myself in the office. 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 MD SARAH Villa/FERNANDO /12:56 AM /11:14 AM
== END 2017-02-04 19:20 | disposition home health service (06) | DRG 330 ==
LOC: HSDI 01-16 10:45 → HCIS 01-17 03:10 → N07B 01-18 20:16
PROVIDERS: ADMIT Colon & Rectal Surgery; ATTEND Colon & Rectal Surgery
PROC: 0D1B4Z4 Bypass Ileum to Cutaneous, Percutaneous Endoscopic Approach (ICD-10-PCS; 2017-01-16)
PROC: 8E0W4CZ Robotic Assisted Procedure of Trunk Region, Percutaneous Endoscopic Approach (ICD-10-PCS; 2017-01-16)
PROC: 3E0M05Z Introduction of Adhesion Barrier into Peritoneal Cavity, Open Approach (ICD-10-PCS; 2017-01-16)
PROC: 0T788DZ Dilation of Bilateral Ureters with Intraluminal Device, Via Natural or Artificial Opening Endoscopic (ICD-10-PCS; 2017-01-16)
PROC: 0TJB8ZZ Inspection of Bladder, Via Natural or Artificial Opening Endoscopic (ICD-10-PCS; 2017-01-16)
PROC: 0DBN0ZZ Excision of Sigmoid Colon, Open Approach (ICD-10-PCS; principal; 2017-01-16 15:21)
PROC: 0DNG4ZZ Release Left Large Intestine, Percutaneous Endoscopic Approach (ICD-10-PCS; 2017-01-16 15:21)
PROC: 0FB03ZX Excision of Liver, Percutaneous Approach, Diagnostic (ICD-10-PCS; 2017-02-03)
DX: K57.20 Diverticulitis of large intestine with perforation and abscess without bleeding (principal); E11.21 Type 2 diabetes mellitus with diabetic nephropathy; E66.01 Morbid (severe) obesity due to excess calories; I10 Essential (primary) hypertension; E78.5 Hyperlipidemia, unspecified; G56.21 Lesion of ulnar nerve, right upper limb; K66.0 Peritoneal adhesions (postprocedural) (postinfection); L30.9 Dermatitis, unspecified; K21.9 Gastro-esophageal reflux disease without esophagitis; M19.90 Unspecified osteoarthritis, unspecified site; G47.00 Insomnia, unspecified; Z88.3 Allergy status to other anti-infective agents; Z88.0 Allergy status to penicillin; Z91.018 Allergy to other foods; R74.8 Abnormal levels of other serum enzymes
CPT/HCPCS: 47000; 74177; 76937; 77012; 80048; 80053; 80074; 80076; 82103; 82105; 82390; 82728; 82805; 83516; 83520; 83540; 83550; 83735; 84132; 85025; 85027; 85610; 86038; 86256; 86850; 86900; 86901; 86920; 88307; 88313; 94150; 94664; C1765; C1769; C9113; J0131; J1170; J1580; J1644; J1885; J2250; J2270; J2405; J2710; J3010; J3370; J3480; J7050; J7120; J7613; Q9967

== ENCOUNTER 2017-02-20 15:57 | Inpatient (IN) | payer BC ==
[~2017-02-20] VITALS: Ht 180.3 cm; Wt 135.2 kg
[2017-02-20] VITALS (9 sets, daily range): BP systolic 81–122; BP diastolic 47–62; PULSE 92–126; RESP 16–20; TEMP 97.6–98; O2SAT 97–100
[~2017-02-20 15:57] MED LIST: FERR1TAB36 PO; HYDR-3516 PO; LOSA100T PO; METF850T PO; MONT10TA4 PO; OMEP20TA PO; POTA10TA8 PO; POTA20TA5 PO; SIMV20TA PO; TERA5CAP3 PO; VERA1TAB17 PO; ZALE10CA PO
[2017-02-20] MEDS ORDERED: SODIUM CHLOR 0.9% 1000 ML INJ 1,000 ML IV ONE ×3 (16:12→18:00)
--- NOTE | 2017-02-20 16:16 | PD ---
HPI Chief Complaint: syncope Time Seen by Provider: 16:06 Travel History International Travel<30 days: No Contact w/Intl Traveler<30days: No Traveled to known affect area: No History of Present Illness HPI 46-year-old male presents via EMS for evaluation of syncopal event. This patient has a history of diverticulitis which resulted in recent surgery on January 16 in which he had laparoscopic lysis of adhesions, left sigmoid colectomy with diverting ileostomy performed by colorectal surgeon Dr. Llanos. He reports that he has been in his usual state of health. Over the past week he has developed some redness of the skin around the ileostomy itself. He saw Dr. Llanos yesterday and was prescribed Bactrim. Today he was standing up inside of his house when he had a syncopal event in the presence of his wound care nurse. He is currently complaining of generalized weakness. He has some pain in left side of his abdomen. He denies any fevers or chills at home. He denies any nausea, vomiting, change in diet, chest pain, shortness of breath, headache, flank pain, dysuria. Past medical history of diabetes. No other complaints. PFSH Past Medical History Arthritis: Yes Autoimmune Disease: No Anxiety: Yes Depression: No Cancer: No Cardiovascular Problems: No High Cholesterol: Yes Diabetes: Yes Diminished Hearing: No Diverticulitis: Yes GERD: Yes Glaucoma: No Genitourinary: No Hepatitis: No Hiatal Hernia: No Hypertension: Yes Immune Disorder: No Kidney Stones: Yes (POSSIBLE STONE, RIGHT KIDNEY) Musculoskeletal: Yes (osteoarthritis knees/neck/back) Neurologic: No Psychiatric: No Reproductive: No Respiratory: No Thyroid Disease: No Past Surgical History Abdominal Surgery: No AICD: No Cardiac Surgery: No Ear Surgery: No Endocrine Surgery: No Eye Surgery: No Genitourinary Surgery: No Gynecologic Surgery: No Joint Replacement: No Oral Surgery: Yes (wisdom teeth out at 17 yrs old) Pacemaker: No Thoracic Surgery: No Other Surgery: Yes Social History Alcohol Use: Yes (SOCIALLY) Tobacco Use: No Substance Use: No Allergies-Medications (Allergen,Severity, Reaction): Coded Allergies: Penicillin (Verified Allergy, Mild, Hives, 01/16/17) Flagyl (Verified Allergy, Unknown, 01/16/17) ORAL ONLY Niacin (Verified Allergy, Unknown, 01/16/17) Reported Meds & Prescriptions Reported Meds & Active Scripts Active Potassium Chloride Microencaps 20 Meq Tab 20 Meq PO Q12HR Hydrocodone-Acetaminophen 5-325 mg Tab 1-2 Tab PO Q6H PRN Reported Zaleplon 10 Mg Cap 10 Mg PO HS PRN Metformin (Metformin HCl) 850 Mg Tab 850 Mg PO HS With a meal Terazosin (Terazosin HCl) 5 Mg Cap 5 Mg PO HS Simvastatin 20 Mg Tab 20 Mg PO HS Montelukast (Montelukast Sodium) 10 Mg Tab 10 Mg PO HS PRN Iron (Ferrous Sulfate) 325 Mg Tab 325 Mg PO DAILY Take Verapamil ER 24 HR (Verapamil HCl) 240 Mg Tab 240 Mg PO DAILY Losartan (Losartan Potassium) 100 Mg Tab 100 Mg PO DAILY Omeprazole 20 Mg Tab 20 Mg PO BID Review of Systems Except as stated in HPI: all other systems reviewed are Neg Physical Exam Narrative GENERAL: This is an ill-appearing male who is in no acute distress. His vital signs reviewed. SKIN: Warm and dry. HEAD: Atraumatic. Normocephalic. EYES: Pupils equal and round. No scleral icterus. No injection or drainage. ENT: No nasal bleeding or discharge. Mucous membranes pink and moist. NECK: Trachea midline. No JVD. CARDIOVASCULAR: Regular rate and rhythm. No murmur appreciated. RESPIRATORY: No accessory muscle use. Clear to auscultation. Breath sounds equal bilaterally. GASTROINTESTINAL: Abdomen soft, non-tender, nondistended. Hepatic and splenic margins not palpable. MUSCULOSKELETAL: No obvious deformities. No clubbing. No cyanosis. No edema. NEUROLOGICAL: Awake and alert. No obvious cranial nerve deficits. Motor grossly within normal limits. Normal speech. PSYCHIATRIC: Appropriate mood and affect; insight and judgment normal. Data Data Last Documented VS Vital Signs Date Time Temp Pulse Resp B/P Pulse Ox O2 Delivery O2 Flow Rate FiO2 02/20/17 17:28 120 18 81/53 02/20/17 17:28 98 Room Air 02/20/17 16:24 2 02/20/17 16:19 97.6 Orders Electrocardiogram (02/20/17 16:12) Complete Blood Count With Diff (02/20/17 16:12) Comprehensive Metabolic Panel (02/20/17 16:12) Prothrombin Time / Inr (Pt) (02/20/17 16:12) Act Partial Throm Time (Ptt) (02/20/17 16:12) Lactic Acid Sepsis Protocol (02/20/17 16:12) Magnesium (Mg) (02/20/17 16:12) Lipase (02/20/17 16:12) Ckmb (Isoenzyme) Profile (02/20/17 16:12) Troponin I (02/20/17 16:12) Urinalysis - C+S If Indicated (02/20/17 16:12) Blood Culture (02/20/17 16:12) Chest, Single Ap (02/20/17 16:12) Blood Glucose (02/20/17 16:12) Ecg Monitoring (02/20/17 16:12) Iv Access Insert/Monitor (02/20/17 16:12) Oximetry (02/20/17 16:12) Oxygen Administration (02/20/17 16:12) Sodium Chlor 0.9% 1000 Ml Inj (Ns 1000 M (02/20/17 16:12) Sodium Chlor 0.9% 1000 Ml Inj (Ns 1000 M (02/20/17 16:41) Ct Abd/Pel W/O Iv Contrast (02/20/17 17:29) Aztreonam Inj (Azactam Inj) (02/20/17 17:32) Metronidazole 500 Mg Inj (Flagyl 500 Mg (02/20/17 17:32) Vancomycin Inj (Vancomycin Inj) (02/20/17 17:45) Sodium Chlorid 0.9% 500 Ml Inj (Ns 500 M (02/20/17 17:45) Sodium Chlor 0.9% 1000 Ml Inj (Ns 1000 M (02/20/17 18:00) Sodium Chlor 0.9% 1000 Ml Inj (Ns 1000 M (02/20/17 18:00) Admit Order (Ed Use Only) (02/20/17 17:54) Labs Laboratory Tests Test 02/20/17 16:20 White Blood Count 12.5 TH/MM3 Red Blood Count 4.45 MIL/MM3 Hemoglobin 13.1 GM/DL Hematocrit 38.9 % Mean Corpuscular Volume 87.3 FL Mean Corpuscular Hemoglobin 29.4 PG Mean Corpuscular Hemoglobin 33.6 % Concent Red Cell Distribution Width 14.1 % Platelet Count 319 TH/MM3 Mean Platelet Volume 9.3 FL Neutrophils (%) (Auto) 56.5 % Lymphocytes (%) (Auto) 30.9 % Monocytes (%) (Auto) 9.2 % Eosinophils (%) (Auto) 2.5 % Basophils (%) (Auto) 0.9 % Neutrophils # (Auto) 7.1 TH/MM3 Lymphocytes # (Auto) 3.9 TH/MM3 Monocytes # (Auto) 1.2 TH/MM3 Eosinophils # (Auto) 0.3 TH/MM3 Basophils # (Auto) 0.1 TH/MM3 CBC Comment DIFF FINAL Differential Comment Prothrombin Time 11.2 SEC Prothromb Time International 1.0 RATIO Ratio Activated Partial 24.3 SEC Thromboplast Time Sodium Level 134 MEQ/L Potassium Level 4.7 MEQ/L Chloride Level 103 MEQ/L Carbon Dioxide Level 17.6 MEQ/L Anion Gap 13 MEQ/L Blood Urea Nitrogen 43 MG/DL Creatinine 3.30 MG/DL Estimat Glomerular Filtration 20 ML/MIN Rate Random Glucose 157 MG/DL Lactic Acid Level 4.2 mmol/L Calcium Level 9.4 MG/DL Magnesium Level 1.6 MG/DL Total Bilirubin 0.6 MG/DL Aspartate Amino Transf 68 U/L (AST/SGOT) Alanine Aminotransferase 93 U/L (ALT/SGPT) Alkaline Phosphatase 227 U/L Total Creatine Kinase 85 U/L Troponin I LESS THAN 0.02 NG/ML Total Protein 8.0 GM/DL Albumin 3.3 GM/DL Lipase 599 U/L MDM Medical Decision Making Medical Screen Exam Complete: Yes Emergency Medical Condition: Yes Medical Record Reviewed: Yes Interpretation(s) EKG sinus tachycardia with a rate of 110 Differential Diagnosis Cellulitis, sepsis, dehydration, electrolyte abnormality, ACS, arrhythmia Narrative Course 46-year-old male with recent left sigmoid colectomy with diverting ileostomy presents after syncopal episode. He is currently tachycardic, hypotensive. He has a lytic changes of his abdomen around the ileostomy site. The patient was given 1 L of IV fluids via EMS. Additional 2 L have been ordered, then additional 500 mL bolus for a total of 3500 mL(30 ml/kg). 12-lead EKG was ordered. Patient was placed in the subcutaneous monitor and pulse oximetry. Basic lab work, chest x-ray, CT of the abdomen and pelvis have been ordered. The patient's lab work and imaging studies have been reviewed. He has leukocytosis, acute kidney injury, elevated lactic acid. The patient's blood pressure responded to IV fluids, most recent blood pressure is 111/56. The patient is allergic to penicillin. He was given broad-spectrum antibiotics including aztreonam, Flagyl and vancomycin. Discussed with the critical care physician Dr. Frias who is agreeable with admission to Dr. Morales. Discussed with my attending. Procedures EKG Prior to Arrival: Yes Diagnosis Primary Impression: Severe sepsis Additional Impressions: Cellulitis Acute kidney injury Dehydration Admitting Information Admitting Physician Requests: Admit Pedro Shoemaker February 20, 2017 16:16
[2017-02-20] MEDS ORDERED: SODIUM CHLOR 0.9% 1000 ML INJ 1,000 ML IV SCH (16:41)
--- NOTE | 2017-02-20 17:04 | RADRPT ---
EXAM DATE/TIME: 02/20/2017 16:41 [facility] COMPARISON: CHEST SINGLE AP, June 24, 2016, 16:16. INDICATIONS : Syncopal episode today MEDICAL HISTORY : None. SURGICAL HISTORY : None. ENCOUNTER: Initial ACUITY: 1 day PAIN SCORE: 0/10 LOCATION: Bilateral chest FINDINGS: A single view of the chest demonstrates the lungs to be symmetrically aerated without evidence of mas s, infiltrate or effusion. The cardiomediastinal contours are unremarkable. Osseous structures are intact. CONCLUSION: 1. No acute cardiopulmonary disease. Mic Fraire MD on February 20, 2017 at 17:02 Board Certified Radiologist. This report was verified electronically.
[2017-02-20 17:05] LABS: AUTOMATED NEUTROPHIL # 7.1 TH/MM3 (1.8-7.7); BASOPHIL # 0.1 TH/MM3 (0-0.2); BASOPHIL % 0.9 % (0.0-2.0); EOSINOPHIL # 0.3 TH/MM3 (0-0.4); EOSINOPHIL % 2.5 % (0.0-4.0); HEMATOCRIT 38.9 % (39.0-51.0); HEMO FLAGS DIFF FINAL; LYMPH % 30.9 % (9.0-44.0); LYMPHOCYTE # 3.9 TH/MM3 (1.0-4.8); MEAN CELL VOLUME 87.3 FL (80.0-100.0); MEAN CORPUSCULAR HEMOGLOBIN 29.4 PG (27.0-34.0); MEAN CORPUSCULAR HGB CONC 33.6 % (32.0-36.0); MONO % 9.2 % (0.0-8.0); NEUT % 56.5 % (16.0-70.0); PLATELET COUNT 319 TH/MM3 (150-450); RED BLOOD COUNT 4.45 MIL/MM3 (4.50-5.90); RED CELL DISTRIBUTION WIDTH 14.1 % (11.6-17.2); WHITE BLOOD COUNT 12.5 TH/MM3 (4.0-11.0)
[2017-02-20 17:18] LABS: ALKALINE PHOSPHATASE 227 U/L (45-117); ALT (GPT) 93 U/L (12-78); ANION GAP 13 MEQ/L (5-15); AST (GOT) 68 U/L (15-37); BICARBONATE 17.6 MEQ/L (21.0-32.0); BLOOD UREA NITROGEN 43 MG/DL (7-18); CHLORIDE 103 MEQ/L (98-107); CREATINE KINASE 85 U/L (39-308); GLOMERULAR FILTRATION RATE 20 ML/MIN (>89); MAGNESIUM 1.6 MG/DL (1.5-2.5); POTASSIUM 4.7 MEQ/L (3.5-5.1); SODIUM (NA) 134 MEQ/L (136-145); TOTAL BILIRUBIN ADULT 0.6 MG/DL (0.2-1.0)
[2017-02-20] MEDS ORDERED: metroNIDAZOLE 500 MG INJ 100 ML IV STA (17:32)
[2017-02-20] MEDS ORDERED: AZTREONAM INJ 2,000 MG in SODIUM CHLORIDE 0.9% INJ 100 ML IV STA (17:32)
[2017-02-20] MEDS ORDERED: VANCOMYCIN INJ 1,000 MG in SODIUM CHLOR 0.9% 250 ML INJ 250 ML IV ONE (17:45)
[2017-02-20] MEDS ORDERED: SODIUM CHLORID 0.9% 500 ML INJ 500 ML IV ONE (17:45)
[2017-02-20 17:47] LABS: APTT (PATIENT) 24.3 SEC (24.3-30.1); PROTHROMBIN TIME - PATIENT 11.2 SEC (9.8-11.6)
[2017-02-20] MEDS ORDERED: MISCELLANEOUS NURSING INFORMATION XX SCH (18:00)
[2017-02-20] MEDS ORDERED: CHLORHEXIDINE GLUCONATE 2 % 1 PACK (2 CLOTHS) TOP PRN (18:00)
[2017-02-20] MEDS ORDERED: RESP: ALBUTEROL 2.5 MG/IPRATROPIUM 0.5 MG NEB (PRN) INH (18:00)
[2017-02-20] MEDS ORDERED: ACETAMINOPHEN 325 MG TAB PO PRN (18:00)
--- NOTE | 2017-02-20 18:03 | RADRPT ---
EXAM DATE/TIME: 02/20/2017 17:42 [facility] COMPARISON: CT ABDOMEN & PELVIS W CONTRAST, January 31, 2017, 16:10. CT ABDOMEN & PELVIS W/O CONTRAST, June, 20:22. INDICATIONS : Abdominal pain with syncopal episode. ORAL CONTRAST: No oral contrast ingested. RADIATION DOSE: 13.88 CTDIvol (mGy) MEDICAL HISTORY : Hypertension. Diverticulitis. Diabetes SURGICAL HISTORY : Colectomy, ileostomy ENCOUNTER: Initial ACUITY: 1 day PAIN SCALE: 6/10 LOCATION: Bilateral abdomen TECHNIQUE: Volumetric scanning of the abdomen and pelvis was performed. Using automated exposure control and ad justment of the mA and/or kV according to patient size, radiation dose was kept as low as reasonably achievable to obtain optimal diagnostic quality images. FINDINGS: No acute abnormality seen in the liver, spleen, pancreas, adrenal glands or kidneys. Intermediate den sity lesions of both kidneys measuring 27 mm on the right and 10 mm on the left again noted. There ar e nonobstructing stones again seen of the left kidney as well. No ureteral calculus. No hydronephrosi s or hydroureter. Lower anterior ventral hernia again seen containing sigmoid colon and mesenteric vessels. There is a fluid and air collection within the anterior abdominal wall measuring approximately 2.1 x 4.4 cm in s ize, changed in configuration but slightly smaller in the interim and still appears to be draining to the skin surface. The collection recently seen within the peritoneal cavity is no longer present. CONCLUSION: 1. Ventral hernia/ostomy as above with decreased size of the fluid and air collection within the ante rior abdominal wall and resolved collection that was previously seen within the adjacent peritoneal s pace. 2. No acute abnormality demonstrated. Hyperdense cysts of both kidneys and nonobstructing stones of t he left kidney are again noted. Rodriguez Mack MD on February 20, 2017 at 17:54 Board Certified Radiologist. This report was verified electronically.
[2017-02-20 18:41] LABS: LACTIC ACID GHOST NOT REPORTABLE
[2017-02-20] MEDS: SODIUM CHLOR 0.9% 1000 ML INJ 1,000 ML IV SCH ×2 (19:12→23:50)
[2017-02-20 20:20] LABS: BLOOD, URINE TRACE (NEG); GLUCOSE,URINE NEG (NEG); GRANULAR CAST, URINE 8 /lpf; HYALINE CAST, URINE 12 /lpf (RARE); KETONE, URINE NEG (NEG); MUCUS URINE FEW /lpf (OCC); NITRITE,URINE NEG (NEG); SQUAMOUS EPITHELIAL CELL URINE 1 /hpf (0-5); URINE COLOR YELLOW (YELLW/STRAW)
[2017-02-20] MEDS: MORPHINE SULFATE 4 MG/ML INJ IV PRN (20:37)
[2017-02-20] MEDS: ENOXAPARIN SODIUM 30 MG/0.3 ML SYRINGE SQ SCH (20:40)
--- NOTE | 2017-02-20 21:08 | HHI.HP ---
HPI Service Critical Care Medicine Primary Care Physician Trent Jiang III, MD Admission Diagnosis dehydration, cellulitis, severe sepsis, LOULOU Diagnosis: Travel History International Travel<30 Days: No Contact w/Intl Traveler <30 Da: No Traveled to Known Affected Are: No History of Present Illness 46-year-old male presents for an evaluation of syncopal event. This patient has a history of severe relapsing diverticulitis which resulted in laparoscopic lysis of adhesions, left sigmoid colectomy with diverting ileostomy performed by colorectal surgeon Dr. Llanos on January 16 in which he had . He has been in his usual state of health until past week when he developed some redness of the skin around the ileostomy and regular liquid content in the ileostomy bag difficult to prevent from leak. He saw Dr. Llanos yesterday and was prescribed Bactrim. Today he was standing up inside of his house when he had a syncopal event in the presence of his wound care nurse. He has some pain in left side of his abdomen. He denies any fevers or chills at home. He denies any nausea, vomiting, change in diet, chest pain, shortness of breath, headache, flank pain, dysuria. Past medical history of diabetes. In the emergency department he was found to be severely hypotensive however the blood pressure improved and responded very well to IV fluids. Review of Systems Constitutional: COMPLAINS OF: Fatigue, Dizziness, DENIES: Diaphoretic episodes , Fever, Weight gain, Weight loss, Chills, Change in appetite, Night Sweats Endocrine: DENIES: Heat/cold intolerance, Polydipsia, Polyuria, Polyphagia Eyes: DENIES: Blurred vision, Diplopia, Eye inflammation, Eye pain, Vision loss , Photosensitivity, Double Vision Ears, nose, mouth, throat: DENIES: Tinnitus, Hearing loss, Vertigo, Nasal discharge, Oral lesions, Throat pain, Hoarseness, Ear Pain, Running Nose, Epistaxis, Sinus Pain, Toothache, Odynophagia Respiratory: DENIES: Apneas, Cough, Snoring, Wheezing, Hemoptysis, Sputum production, Shortness of breath Cardiovascular: DENIES: Chest pain, Palpitations, Syncope, Dyspnea on Exertion , PND, Lower Extremity Edema, Orthopnea, Claudication Gastrointestinal: DENIES: Abdominal pain, Black stools, Bloody stools, Constipation, Diarrhea, Nausea, Vomiting, Difficulty Swallowing, Anorexia Genitourinary: DENIES: Sexual dysfunction, Urinary frequency, Urinary incontinence, Urgency, Hematuria, Dysuria, Nocturia, Penile Discharge, Testicular Pain, Testicular Swelling Musculoskeletal: DENIES: Joint pain, Muscle aches, Stiffness, Joint Swelling, Back pain, Neck pain Integumentary: DENIES: Abnormal pigmentation, Nail changes, Pruritus, Rash Hematologic/lymphatic: DENIES: Bruising, Lymphadenopathy Immunologic/allergic: DENIES: Eczema, Urticaria Neurologic: DENIES: Abnormal gait, Headache, Localized weakness, Paresthesias, Seizures, Speech Problems, Tremor, Poor Balance Psychiatric: DENIES: Anxiety, Confusion, Mood changes, Depression, Hallucinations, Agitation, Suicidal Ideation, Homicidal Ideation, Delusions Past Family Social History Allergies: Coded Allergies: Penicillin (Verified Allergy, Mild, Hives, 01/16/17) Flagyl (Verified Allergy, Unknown, 01/16/17) ORAL ONLY Niacin (Verified Allergy, Unknown, 01/16/17) Past Medical History Hypertension Diabetes mellitus type 2 GERD Osteoarthritis Diverticulosis and diverticulitis Past Surgical History Left and right arthroscopic knee surgery Laparoscopic lysis of adhesions Left sigmoid colectomy with diverting ileostomy Reported Medications Reported Meds & Active Scripts Active Potassium Chloride Microencaps 20 Meq Tab 20 Meq PO Q12HR Hydrocodone-Acetaminophen 5-325 mg Tab 1-2 Tab PO Q6H PRN Reported Zaleplon 10 Mg Cap 10 Mg PO HS PRN Metformin (Metformin HCl) 850 Mg Tab 850 Mg PO HS With a meal Terazosin (Terazosin HCl) 5 Mg Cap 5 Mg PO HS Simvastatin 20 Mg Tab 20 Mg PO HS Montelukast (Montelukast Sodium) 10 Mg Tab 10 Mg PO HS PRN Iron (Ferrous Sulfate) 325 Mg Tab 325 Mg PO DAILY Take Verapamil ER 24 HR (Verapamil HCl) 240 Mg Tab 240 Mg PO DAILY Losartan (Losartan Potassium) 100 Mg Tab 100 Mg PO DAILY Omeprazole 20 Mg Tab 20 Mg PO BID Active Ordered Medications Current Medications Medications (Trade) Dose Ordered Sig/Ketty Route PRN Reason Start Time Stop Time Status Last Admin Dose Admin Sodium Chloride (NS 1000 ml Inj) 1,000 ml @ 150 mls/hr Q6H40M IV 02/20/17 18:00 02/20/17 23:50 Acetaminophen (Tylenol) 650 mg Q6H PRN PO PAIN 1-10 AND/OR FEVER >101F 02/20/17 18:00 Morphine Sulfate (Morphine Inj) 2 mg Q2H PRN IV PAIN SCALE 6 TO 10 02/20/17 18:00 02/21/17 00:26 Pantoprazole Sodium (Protonix Inj) 40 mg DAILY IV 02/21/17 09:00 Enoxaparin Sodium (Lovenox Inj) 30 mg Q24H SQ 02/20/17 20:00 02/20/17 20:40 Miscellaneous Information 1 Q361D XX 02/20/17 18:00 Chlorhexidine Gluconate (Chlorhexidine 2% Cloth) 3 pack Taper DAILY@04 TOP 02/21/17 04:00 02/17/18 03:59 Chlorhexidine Gluconate 3 pack 3 pack UNSCH PRN TOP HYGIENIC CARE 02/20/17 18:00 Aztreonam/Sodium Chloride (Azactam Inj/NS Inj) 100 ml @ 200 mls/hr Q8H IV 02/21/17 05:00 Family History Noncontributory Social History Negative 3 Physical Exam Vital Signs Vital Signs Date Time Temp Pulse Resp B/P Pulse Ox O2 Delivery O2 Flow Rate FiO2 02/20/17 21:06 98.0 92 18 104/62 99 02/20/17 20:43 100 20 98/55 02/20/17 20:22 102 122/54 02/20/17 19:07 102 18 111/56 100 Room Air 02/20/17 18:19 95 16 103/57 100 Room Air 02/20/17 18:15 92 17 92/59 99 Room Air 02/20/17 17:28 120 18 81/53 02/20/17 17:28 104 16 87/53 98 Room Air 02/20/17 16:24 98 Nasal Cannula 2 02/20/17 16:19 97.6 120 16 83/48 98 02/20/17 16:11 114 16 89/47 02/20/17 16:11 126 16 81/51 97 Room Air Physical Exam GENERAL: Well-nourished, well-developed patient. SKIN: Warm and dry. HEAD: Normocephalic. EYES: No scleral icterus. No injection or drainage. NECK: Supple, trachea midline. No JVD or lymphadenopathy. CARDIOVASCULAR: Regular rate and rhythm without murmurs, gallops, or rubs. RESPIRATORY: Breath sounds equal bilaterally. No accessory muscle use. GASTROINTESTINAL: Abdomen soft, non-tender, nondistended. MUSCULOSKELETAL: No cyanosis, or edema. BACK: Nontender without obvious deformity. No CVA tenderness. EXTREMITIES: No clubbing cyanosis or edema Laboratory Laboratory Tests Test 02/20/17 02/20/17 16:20 19:50 White Blood Count 12.5 Red Blood Count 4.45 Hemoglobin 13.1 Hematocrit 38.9 Mean Corpuscular Volume 87.3 Mean Corpuscular Hemoglobin 29.4 Mean Corpuscular Hemoglobin 33.6 Concent Red Cell Distribution Width 14.1 Platelet Count 319 Mean Platelet Volume 9.3 Neutrophils (%) (Auto) 56.5 Lymphocytes (%) (Auto) 30.9 Monocytes (%) (Auto) 9.2 Eosinophils (%) (Auto) 2.5 Basophils (%) (Auto) 0.9 Neutrophils # (Auto) 7.1 Lymphocytes # (Auto) 3.9 Monocytes # (Auto) 1.2 Eosinophils # (Auto) 0.3 Basophils # (Auto) 0.1 CBC Comment DIFF FINAL Differential Comment Prothrombin Time 11.2 Prothromb Time International 1.0 Ratio Activated Partial 24.3 Thromboplast Time Sodium Level 134 Potassium Level 4.7 Chloride Level 103 Carbon Dioxide Level 17.6 Anion Gap 13 Blood Urea Nitrogen 43 Creatinine 3.30 Estimat Glomerular Filtration 20 Rate Random Glucose 157 Lactic Acid Level 4.2 Calcium Level 9.4 Magnesium Level 1.6 Total Bilirubin 0.6 Aspartate Amino Transf 68 (AST/SGOT) Alanine Aminotransferase 93 (ALT/SGPT) Alkaline Phosphatase 227 Total Creatine Kinase 85 Troponin I LESS THAN 0.02 Total Protein 8.0 Albumin 3.3 Lipase 599 Urine Color YELLOW Urine Turbidity HAZY Urine pH 5.0 Urine Specific [place] 1.010 Urine Protein TRACE Urine Glucose (UA) NEG Urine Ketones NEG Urine Occult Blood TRACE Urine Nitrite NEG Urine Bilirubin NEG Urine Urobilinogen LESS THAN 2.0 Urine Leukocyte Esterase TRACE Urine RBC 3 Urine WBC 1 Urine Squamous Epithelial 1 Cells Urine Hyaline Casts 12 Urine Granular Casts 8 Urine Mucus FEW Date/Time Procedure Status Source Growth 02/20/17 19:50 Urine Culture Received Urine Catheterized Urine Pending 02/20/17 17:05 Aerobic Blood Culture Received Blood Peripheral Pending 02/20/17 17:05 Anaerobic Blood Culture Received Blood Peripheral Pending Result Diagram: 02/20/17 1620 02/20/17 1620 Imaging Last 24 hours Impressions Abdomen/Pelvis CT 02/20/17 1729 Signed Impressions: Service Date/Time: Monday, February 20, 2017 17:42 - CONCLUSION: 1. Ventral hernia/ostomy as above with decreased size of the fluid and air collection within the anterior abdominal wall and resolved collection that was previously seen within the adjacent peritoneal space. 2. No acute abnormality demonstrated. Hyperdense cysts of both kidneys and nonobstructing stones of the left kidney are again noted. Rodriguez Mack MD Chest X-Ray 02/20/17 1612 Signed Impressions: Service Date/Time: Monday, February 20, 2017 16:41 - CONCLUSION: 1. No acute cardiopulmonary disease. Mic Fraire MD Assessment and Plan Assessment and Plan Syncopal episode - Most likely due to orthostatic hypotension - Volume loss through ileostomy - Severe dehydration with acute kidney injury - Aggressive IV fluids resuscitation Acute kidney injury - Due to above - Aggressive IV fluid replacement - Monitor electrolytes and creatinine - Strict I's and O's - Avoid nephrotoxins Diabetes mellitus - Insulin sliding scale - Hold metformin while in the ICU Hypertension - Hypotensive in the emergency department - Hold antihypertensive meds Leukocytosis - Stress reactive - Broad-spectrum antibiotics - Panculture - Follow-up microbiology DVT GI prophylaxis - Teds SCDs subcutaneous heparin - Pepcid Critical Care: The total critical care time was 35 minutes. Time to perform other separately billable procedures was not included in the critical care time. Sj Morales MD February 20, 2017 21:08
[2017-02-20 22:15] LABS: COMMENT (UR) CATH-CULT NOT IND; CULTURE IF INDICATED CATH CULTURE NOT IND
[2017-02-21] VITALS (10 sets, daily range): BP systolic 105–122; BP diastolic 58–65; PULSE 77–99; RESP 18–20; TEMP 97.9–98.8; O2SAT 96–98
[2017-02-21] MEDS: MORPHINE SULFATE 4 MG/ML INJ IV PRN ×5 (00:26→23:06)
[2017-02-21] MEDS ORDERED: GLUCAGON 1 MG/ML VIAL OTHER PRN (01:15)
[2017-02-21] MEDS ORDERED: DEXTROSE 50% IN WATER 50 ML VIAL(D50) IV PRN (01:15)
[2017-02-21] MEDS: CHLORHEXIDINE GLUCONATE 2 % 1 PACK (2 CLOTHS) TOP SCH (04:00)
[2017-02-21] MEDS: AZTREONAM INJ 1,000 MG in SODIUM CHLORIDE 0.9% INJ 100 ML IV SCH ×3 (05:47→20:54)
[2017-02-21] MEDS: INSULIN ASPART SUPPLEMENTAL SCALE SQ SCH ×4 (05:47→20:54)
[2017-02-21 06:49] LABS: AUTOMATED NEUTROPHIL # 4.9 TH/MM3 (1.8-7.7); BASOPHIL # 0.1 TH/MM3 (0-0.2); BASOPHIL % 1.4 % (0.0-2.0); EOSINOPHIL # 0.3 TH/MM3 (0-0.4); EOSINOPHIL % 3.2 % (0.0-4.0); HEMATOCRIT 32.1 % (39.0-51.0); HEMO FLAGS DIFF FINAL; LYMPH % 21.4 % (9.0-44.0); LYMPHOCYTE # 1.7 TH/MM3 (1.0-4.8); MEAN CELL VOLUME 88.6 FL (80.0-100.0); MEAN CORPUSCULAR HGB CONC 32.8 % (32.0-36.0); MONO % 11.6 % (0.0-8.0); NEUT % 62.4 % (16.0-70.0); PLATELET COUNT 177 TH/MM3 (150-450); RED BLOOD COUNT 3.62 MIL/MM3 (4.50-5.90); RED CELL DISTRIBUTION WIDTH 13.9 % (11.6-17.2); WHITE BLOOD COUNT 7.9 TH/MM3 (4.0-11.0)
[2017-02-21 07:12] LABS: ALKALINE PHOSPHATASE 165 U/L (45-117); ALT (GPT) 59 U/L (12-78); ANION GAP 10 MEQ/L (5-15); AST (GOT) 26 U/L (15-37); BICARBONATE 18.6 MEQ/L (21.0-32.0); BLOOD UREA NITROGEN 31 MG/DL (7-18); CHLORIDE 113 MEQ/L (98-107); GLOMERULAR FILTRATION RATE 35 ML/MIN (>89); MAGNESIUM 1.5 MG/DL (1.5-2.5); POTASSIUM 4.2 MEQ/L (3.5-5.1); SODIUM (NA) 142 MEQ/L (136-145); TOTAL BILIRUBIN ADULT 0.5 MG/DL (0.2-1.0)
[2017-02-21] MEDS: PANTOPRAZOLE SODIUM 40 MG VIAL IV SCH (09:20)
[2017-02-21] MEDS: SODIUM CHLOR 0.9% 1000 ML INJ 1,000 ML IV SCH ×3 (09:21→20:40)
--- NOTE | 2017-02-21 10:20 | HHI.CCPN ---
Subjective Remarks/Hospital Course 46-year-old male presents for an evaluation of syncopal event. This patient has a history of severe relapsing diverticulitis which resulted in laparoscopic lysis of adhesions, left sigmoid colectomy with diverting ileostomy performed by colorectal surgeon Dr. Llanos on January 16 in which he had . He has been in his usual state of health until past week when he developed some redness of the skin around the ileostomy and regular liquid content in the ileostomy bag difficult to prevent from leak. He saw Dr. Llanos yesterday and was prescribed Bactrim. Today he was standing up inside of his house when he had a syncopal event in the presence of his wound care nurse. He has some pain in left side of his abdomen. He denies any fevers or chills at home. He denies any nausea, vomiting, change in diet, chest pain, shortness of breath, headache, flank pain, dysuria. Past medical history of diabetes. In the emergency department he was found to be severely hypotensive however the blood pressure improved and responded very well to IV fluids. SUBJ 02/21/17: Clinically improving. Systolic blood pressure in the 130s. Urine output adequate. Creatinine improved to 2. Dr. Llanos consulted Objective Vital Signs Date Time Temp Pulse Resp B/P Pulse Ox O2 Delivery O2 Flow Rate FiO2 02/21/17 08:00 82 02/20/17 21:06 98.0 18 104/62 99 02/20/17 19:07 Room Air 02/20/17 16:24 2 Intake and Output 02/20/17 02/20/17 02/21/17 08:00 16:00 00:00 Intake Total 5500 ml Output Total 650 ml Balance 4850 ml Result Diagram: 02/21/17 0606 02/21/17 0606 Imaging Last 24 hours Impressions Abdomen/Pelvis CT 02/20/17 8439 Signed Impressions: Service Date/Time: Monday, February 20, 2017 17:42 - CONCLUSION: 1. Ventral hernia/ostomy as above with decreased size of the fluid and air collection within the anterior abdominal wall and resolved collection that was previously seen within the adjacent peritoneal space. 2. No acute abnormality demonstrated. Hyperdense cysts of both kidneys and nonobstructing stones of the left kidney are again noted. Rodriguez Mack MD Chest X-Ray 02/20/17 1612 Signed Impressions: Service Date/Time: Monday, February 20, 2017 16:41 - CONCLUSION: 1. No acute cardiopulmonary disease. Mic Fraire MD Objective Remarks GENERAL: Well-nourished, well-developed patient. SKIN: Warm and dry. HEAD: Normocephalic. EYES: No scleral icterus. No injection or drainage. NECK: Supple, trachea midline. No JVD or lymphadenopathy. CARDIOVASCULAR: Regular rate and rhythm without murmurs, gallops, or rubs. RESPIRATORY: Breath sounds equal bilaterally. No accessory muscle use. GASTROINTESTINAL: Abdomen soft, non-tender, nondistended. Ileostomy bag with leakage around and surrounding cellulitis, small open wound below ileostomy MUSCULOSKELETAL: No cyanosis, or edema. BACK: Nontender without obvious deformity. No CVA tenderness. EXTREMITIES: No clubbing cyanosis or edema A/P Assessment and Plan Syncopal episode - Most likely due to orthostatic hypotension - Volume loss through ileostomy - Severe dehydration with acute kidney injury - Aggressive IV fluids resuscitation Acute kidney injury - Due to above - Aggressive IV fluid replacement - Monitor electrolytes and creatinine - Strict I's and O's - Avoid nephrotoxins Diabetes mellitus - Insulin sliding scale - Hold metformin while in the ICU Hypertension - Hypotensive in the emergency department - Hold antihypertensive meds Leukocytosis - Stress reactive - Broad-spectrum antibiotics - Panculture - Follow-up microbiology S/p sigmoidectomy and diverting ileostomy by Dr. Llanos -Dr. Llanos and ostomy nurse consulted DVT GI prophylaxis - Teds SCDs subcutaneous heparin - Pepcid Level 3 D/W Dr. Mustafa, [facility] hospitalist. [facility] will sign off today 02/21/17 Georgiana Frias MD February 21, 2017 10:20
[2017-02-21] MEDS ORDERED: AZTREONAM INJ 2,000 MG in SODIUM CHLORIDE 0.9% INJ 100 ML IV SCH ×4 (10:45)
--- NOTE | 2017-02-21 11:30 | MH ---
cc: ZAY MUSTAFA DATE OF ADMISSION: 02/20/2017 DATE OF : 1970 HISTORY OF PRESENT ILLNESS The patient is a very pleasant 46-year-old male with a past medical history of severe relapsing diverticulitis for which he had laparoscopic lysis of adhesions with sigmoid colectomy and diverting ileostomy performed by Dr. Riddhi Peter on 01/16/2017. He was doing well but had leaking from the ileostomy bag site since the time he had surgery. He saw Dr. Llanos on who prescribed Bactrim. On the day of admission he was standing in his house and suddenly passed out. The next thing he knew he was on the floor. He came to the ER and evaluated by the ER physician and the bottle house cleaners supervisor. At present he has no complaint. He has no headache, dizziness, nausea, vomiting, chest pain, diaphoresis, palpitations, abdominal pain. He has liquid stool as usual. He does not know if it is a normal rate or less rate, but it seems like normal to him. In the ER he was severely hypertensive with acute kidney injury. He was admitted with acute kidney and hypertension causing a syncopal episode with lactic acidosis. The patient was given good rehydration. Now the blood pressure is stable. His kidney function is also showing signs of improvement. His lactic acid is better today. His LFTs are also coming down. PAST MEDICAL HISTORY 1. Diverticulitis status post surgery as described above. 2. Hypertension. 3. Diabetes. 4. GERD. 5. Osteoarthritis. PAST SURGICAL HISTORY 1. Sigmoid colectomy with diverting ileostomy as described above. 2. Knee arthroscopic surgery. 3. Laparoscopic lysis of adhesions. MEDICATIONS Medications reviewed. Please see EMR. ALLERGIES The patient is allergic to FLAGLY, NIACIN AND PENICILLIN. REVIEW OF SYSTEMS As described above in the history of present illness, otherwise negative for 10 systems. SOCIAL HISTORY The patient does not smoke, drink or do any drugs. FAMILY HISTORY Reviewed. Noncontributory to this admission. PHYSICAL EXAMINATION GENERAL: The patient is alert and oriented, obese, lying on the bed without any apparent distress. VITAL SIGNS: Afebrile. Pulse is 82, respiratory rate 18, blood pressure 132/60. Heart rate on the monitor at present is 101. Normal oxygen saturation. HEENT: Head is atraumatic, normocephalic. Negative conjunctival injection. No icterus. Mouth unremarkable. NECK: Supple. No increased JVD. Central trachea. CHEST: Clear to auscultation. CARDIOVASCULAR: S1, S2 audible. No S3 gallop or murmur. ABDOMEN: Soft, nontender, no organomegaly. Positive ileostomy site with a bag on, looks like left side leakage. There is greenish liquid in the bag. EXTREMITIES: No cyanosis or edema noted. HOUSE OFFICER: Grossly intact. SKIN: Warm and dry. There is positive erythema of the skin surrounding the ostomy bag likely secondary to leakage of ostomy material causing irritation of the skin. LABORATORY Sodium and potassium within normal limits. Chloride 113, CO2 18.6, BUN 31, creatinine 2.07, was 43 and 3.30. Lactic acid 1.5. Calcium 8. AST and ALT within normal limits. Alkaline phosphatase 165. Total protein 5.7. Albumin 2.6. CBC shows a normal WBC and platelet count. Hemoglobin 10.5, hematocrit 32. Urine shows leukocyte esterase trace, RBC 3, WBC 1. PT, INR and APTT within normal limits. Nasal screen MRSA not detected. Blood cultures and urine culture are pending. IMAGING CT of the abdomen was done which showed a ventral hernia/ostomy with decreased size of fluid and air collection within the anterior abdominal wall and resolved collection that was previously seen within the adjacent peritoneal space. No acute abnormality demonstrated. Hyperdense cysts of both kidneys and nonobstructive stone of he left kidney are again noted. Chest x-ray was done which showed no acute cardiopulmonary disease. EKG EKG was done which showed sinus tachycardia at a rate of [address]-T wave changes. ASSESSMENT 1. Syncopal episode. 2. Hypertension on admission. 3. Severe dehydration. 4. Acute kidney injury, likely secondary to severe dehydration. 5. Diabetes. 6. History of hypertension. 7. Leaking ileostomy area with skin irritation. PLAN 1. The patient is stable for transfer to the regular floor. 2. Continue antibiotics. 3. Consult colorectal surgeon. 4. Sliding scale insulin for sugar management. 5. Feeding has been restarted, will monitor. 6. Lovenox for DVT prophylaxis. 7. Protonix for GI prophylaxis. 8. Will continue some of his home medication as indicated. 9. Discussed with bottle house cleaners supervisor on the floor. 10. Discussed with RN. 11. Discussed with patient. 12. Will follow closely. 13. Plan for wound care consult. 14. Further recommendations to follow as per the patient's progress. Zay Mustafa MD JP/FERNANDO /10:26 AM /10:51 AM
--- NOTE | 2017-02-21 16:04 | EKG ---
Date Performed: 02/20/2017 Time Performed: 16:37:59 PTAGE: 46 years EKG: SINUS TACHYCARDIA MINIMAL VOLTAGE CRITERIA FOR LVH, CONSIDER NORMAL VARIANT ABNORMAL RHYTHM ECG Compared to prior tracing no significant change PREVIOUS TRACING : 06/07/2016 21.20 DOCTOR: Olinda Burk Interpretating Date/Time 02/21/2017 16:02:35
[2017-02-21] MEDS: ENOXAPARIN SODIUM 30 MG/0.3 ML SYRINGE SQ SCH (20:55)
[2017-02-22] VITALS (8 sets, daily range): BP systolic 111–129; BP diastolic 60–71; PULSE 73–82; RESP 16–20; TEMP 97.8–98.3; O2SAT 95–99
[2017-02-22] MEDS: SODIUM CHLOR 0.9% 1000 ML INJ 1,000 ML IV SCH ×3 (03:20→20:19)
[2017-02-22] MEDS: AZTREONAM INJ 1,000 MG in SODIUM CHLORIDE 0.9% INJ 100 ML IV SCH ×3 (03:28→21:54)
[2017-02-22] MEDS: MORPHINE SULFATE 4 MG/ML INJ IV PRN ×8 (03:28→23:59)
[2017-02-22] MEDS: CHLORHEXIDINE GLUCONATE 2 % 1 PACK (2 CLOTHS) TOP SCH (04:00)
[2017-02-22] MEDS: INSULIN ASPART SUPPLEMENTAL SCALE SQ SCH ×4 (05:44→19:35)
[2017-02-22 08:55] LABS: HEMATOCRIT 29.8 % (39.0-51.0); MEAN CELL VOLUME 88.6 FL (80.0-100.0); MEAN CORPUSCULAR HEMOGLOBIN 29.9 PG (27.0-34.0); MEAN CORPUSCULAR HGB CONC 33.8 % (32.0-36.0); PLATELET COUNT 149 TH/MM3 (150-450); RED BLOOD COUNT 3.37 MIL/MM3 (4.50-5.90); RED CELL DISTRIBUTION WIDTH 13.9 % (11.6-17.2); REVIEW FLAG FINAL; WHITE BLOOD COUNT 5.4 TH/MM3 (4.0-11.0)
[2017-02-22 09:15] LABS: BICARBONATE 18.3 MEQ/L (21.0-32.0); MAGNESIUM 1.3 MG/DL (1.5-2.5); POTASSIUM 4.1 MEQ/L (3.5-5.1)
[2017-02-22] MEDS: PANTOPRAZOLE SODIUM 40 MG VIAL IV SCH (09:23)
--- NOTE | 2017-02-22 09:38 | HHI.PR ---
Subjective Subjective Remarks Doing better Blood pressure stable No fever No chest pain No shortness of breath Tolerating diet well No nausea, vomiting Liquid stool noted in ostomy, His skin around ostomy less erythematous, dry and flaky. Review of Systems Constitutional Constitutional Remarks 12 point review of systems completed, negative except as noted above Vitals/Results Intake & Output 02/21/17 02/21/17 02/22/17 15:00 23:00 07:00 Intake Total 1651 ml 538 ml 892 ml Output Total 1250 ml 1400 ml Balance 401 ml -862 ml 892 ml Intake Oral 600 ml 240 ml IV Total 1051 ml 298 ml 892 ml Output Urine Total 900 ml 500 ml Stool Total 350 ml 900 ml Vital Signs Vital Signs Date Time Temp Pulse Resp B/P Pulse Ox O2 Delivery O2 Flow Rate FiO2 02/22/17 06:00 97.8 78 20 127/64 97 02/22/17 01:11 Room Air 02/22/17 00:00 98.0 80 20 124/60 99 02/21/17 20:17 83 02/21/17 20:00 98.0 80 20 122/62 97 02/21/17 14:40 97.9 85 20 113/61 96 02/21/17 12:00 98.1 87 20 121/65 98 02/21/17 12:00 81 02/21/17 10:00 82 CBC/BMP: 02/22/17 0813 02/22/17 0813 Lab Results Laboratory Tests Test 02/22/17 08:13 White Blood Count 5.4 TH/MM3 Red Blood Count 3.37 MIL/MM3 Hemoglobin 10.1 GM/DL Hematocrit 29.8 % Mean Corpuscular Volume 88.6 FL Mean Corpuscular Hemoglobin 29.9 PG Mean Corpuscular Hemoglobin 33.8 % Concent Red Cell Distribution Width 13.9 % Platelet Count 149 TH/MM3 Mean Platelet Volume 8.4 FL Sodium Level 141 MEQ/L Potassium Level 4.1 MEQ/L Chloride Level 114 MEQ/L Carbon Dioxide Level 18.3 MEQ/L Anion Gap 9 MEQ/L Blood Urea Nitrogen 20 MG/DL Creatinine 1.26 MG/DL Estimat Glomerular Filtration 61 ML/MIN Rate Random Glucose 88 MG/DL Calcium Level 8.1 MG/DL Magnesium Level 1.3 MG/DL Physical Exam General General Appearance: Well Developed, No Acute Distress, Comfortable, Obese Eyes Eye Exam: Pupils Equal, Pupils Reactive Ears & Nose Ears & Nose Exam: Nasal Mucosa [place] Throat Throat Exam: Oral Mucosa [place] & Moist Neck Neck Exam: Neck Supple, Trachea Midline Pulmonary Resp Exam: Clear Bilaterally, No Distress Cardiology CV Exam: Regular, Good Perfusion Gastrointestinal/Abdomen GI Exam: Soft, Bowel Sounds Present, Non-Distended GI Remarks Ileostomy noted with liquid stool. His skin around ostomy noted with mildly erythematous skin, dry and flaky. Musculoskeletal MS Exam: Joints Intact Integumentary Skin Exam: Warm, Dry Extremeties Extremities Exam: No Edema, Pedal Pulses Palpable Neurologic Neuro Exam: Alert, Awake, Oriented, Speech Clear, Moving All Extremities, No Focal Deficits Psychiatric Psych Exam: Appropriate Responses VTE Prophylaxis VTE Prophylaxis Meds: Lovenox PUD Prophylasis PUD Prophylaxis: Protonix Assessment/Plan Problem List: (1) Syncope (2) Dehydration (3) Cellulitis (4) Severe sepsis (5) Acute kidney injury (6) DM (diabetes mellitus) (7) Hx of diverticulitis of colon (8) s/p laparoscopic lysis of adhesions, left sigmoid colectomy with diverting ileostomy Assessment/Plan 46-year-old male admitted after syncopal episode, found severely dehydrated in acute renal injury, septic, cellulitis of abdominal wall around the ileostomy site from leakage. Patient with history of diverticulitis, status post laparoscopic lysis of adhesions, left sigmoid colectomy with diverting ileostomy -Patient has been transferred out of ICU, hemodynamically stable. Blood pressure trending upwards Continue to hold antihypertensive agents Continue normal saline, decreased 100 cc/h Renal function markedly improved, BUN 20, creatinine 1.26. -Magnesium 1.3, give 2 g magnesium IV piggyback today. -Continue to follow BMP Sepsis, with cellulitis of abdominal wall Continue with Azactam Lactic acid back to normal Continue to follow cultures, so far negative -Colorectal surgery has been consulted for evaluation. We will check stools for C. difficile -Ostomy nurse consultation Type 2 diabetes, blood glucose stable Continue with Accu-Cheks before meals and at bedtime and insulin therapy History hypertension, was hypotensive Continue to hold antihypertensive agents, blood pressure is stable. Home medications reviewed, some initiated Lovenox for DVT prophylaxis PPI for GI prophylaxis Labs have been reviewed, improving Discussed with Dr. Mustafa Discussed with her and Discussed with patient This patient was seen by myself and Dr. Mustafa, this note is written his behalf Problem Qualifiers (1) Syncope: Qualified Code: R55 - Syncope, unspecified syncope type (2) Cellulitis: (3) DM (diabetes mellitus): Qualified Code: E11.9 - Type 2 diabetes mellitus without complication, unspecified long term care social worker insulin use status Lily Flores [facility] February 22, 2017 09:38
[2017-02-22] MEDS ORDERED: PNEUMOCOCCAL POLYVALENT INJ 25 MCG/0.5 ML SYR IM ONE (10:00)
--- NOTE | 2017-02-22 11:09 | HHI.PR ---
Subjective Remarks Dehydration/ OLIVER Wound infection Improved since admit Objective Vital Signs Date Time Temp Pulse Resp B/P Pulse Ox O2 Delivery O2 Flow Rate FiO2 02/22/17 09:00 73 02/22/17 08:00 98.0 75 18 129/70 95 02/22/17 08:00 Room Air 2.00 02/22/17 06:00 97.8 78 20 127/64 97 02/22/17 01:11 Room Air 02/22/17 00:00 98.0 80 20 124/60 99 02/21/17 20:17 83 02/21/17 20:00 98.0 80 20 122/62 97 02/21/17 14:40 97.9 85 20 113/61 96 02/21/17 12:00 98.1 87 20 121/65 98 02/21/17 12:00 81 I/O 02/21/17 02/21/17 02/21/17 02/22/17 02/22/17 02/22/17 07:00 15:00 23:00 07:00 15:00 23:00 Intake Total 1320 ml 1651 ml 538 ml 892 ml Output Total 600 ml 1250 ml 1400 ml Balance 720 ml 401 ml -862 ml 892 ml Intake Oral 350 ml 600 ml 240 ml IV Total 970 ml 1051 ml 298 ml 892 ml Output Urine Total 600 ml 900 ml 500 ml Stool Total 350 ml 900 ml # Bowel Movements 0 Result Diagram: 02/22/1713 02/22/1713 Objective Remarks Wound improved Stoma pink Assessment and Plan Assessment and Plan DEhydration/OLIVER/Wound infection Due to the patient extremely large size, pouching is difficult, which makes treatment of wound infection difficult Dressing changes BID Add imodium to decrease output check gastrograffin enema to evaluate anastomosis Riddhi Llanos MD February 22, 2017 11:08
[2017-02-22] MEDS: MAGNESIUM SULFATE 1 GM PREMIX 100 ML IV SCH ×2 (11:27→14:24)
[2017-02-22] MEDS: LOPERAMIDE HCL 2 MG CAP PO SCH ×2 (11:28→21:55)
[2017-02-22 15:09] LABS: C. DIFF EPI 027 PRESUMPTIVE NEGATIVE (NEGATIVE); C. DIFF TOXIN PCR NEGATIVE (NEGATIVE)
[2017-02-22] MEDS ORDERED: NON-FORMULARY DRUG (Omeprazole 20 MG) PO SCH (21:00)
[2017-02-22] MEDS: TERAZOSIN HCL 5 MG CAP PO SCH (21:54)
[2017-02-22] MEDS: ENOXAPARIN SODIUM 30 MG/0.3 ML SYRINGE SQ SCH (21:54)
[2017-02-22] MEDS: PRAVASTATIN SOD 40 MG TAB PO SCH (21:55)
[2017-02-23] VITALS (8 sets, daily range): BP systolic 116–143; BP diastolic 60–82; PULSE 78–91; RESP 18; TEMP 97.4–98.4; O2SAT 94–96
[2017-02-23] MEDS: CHLORHEXIDINE GLUCONATE 2 % 1 PACK (2 CLOTHS) TOP SCH (03:24)
[2017-02-23] MEDS: SODIUM CHLOR 0.9% 1000 ML INJ 1,000 ML IV SCH (03:40)
[2017-02-23] MEDS: AZTREONAM INJ 1,000 MG in SODIUM CHLORIDE 0.9% INJ 100 ML IV SCH ×3 (03:40→21:54)
[2017-02-23] MEDS: MORPHINE SULFATE 4 MG/ML INJ IV PRN ×6 (03:40→21:54)
[2017-02-23] MEDS: INSULIN ASPART SUPPLEMENTAL SCALE SQ SCH ×4 (05:46→21:00)
[2017-02-23 09:06] LABS: HEMATOCRIT 30.1 % (39.0-51.0); MEAN CELL VOLUME 87.7 FL (80.0-100.0); MEAN CORPUSCULAR HEMOGLOBIN 28.9 PG (27.0-34.0); PLATELET COUNT 149 TH/MM3 (150-450); RED BLOOD COUNT 3.44 MIL/MM3 (4.50-5.90); RED CELL DISTRIBUTION WIDTH 13.7 % (11.6-17.2); REVIEW FLAG FINAL; WHITE BLOOD COUNT 4.3 TH/MM3 (4.0-11.0)
[2017-02-23 09:38] LABS: POTASSIUM 3.6 MEQ/L (3.5-5.1)
[2017-02-23] MEDS ORDERED: DIATRIZOATE MEGLUM/DIATRIZOATE SOD 120 ML BTL (for RAD DIAG) RECTAL ONE (10:00)
--- NOTE | 2017-02-23 10:49 | HHI.FF ---
Face to Face Verification Diagnosis: (1) s/p laparoscopic lysis of adhesions, left sigmoid colectomy with diverting ileostomy (2) Severe sepsis (3) DM (diabetes mellitus) (4) Cellulitis (5) Dehydration (6) Syncope Physical Therapy Order: Evaluate and Treat Home Health Nursing Order: Medical education Wound care and dressing changes Nursing assessment with vital signs Instructions: wound vac I have seen patient Jevon Loving on 02/23/17. My clinical findings support the need for the requested home health care services because: Deconditioned w/ increased weakness Limited ability to care for self I certify that my clinical findings support that this patient is homebound because: Need for psychosocial assistance Lily Flores [facility] February 23, 2017 10:49
--- NOTE | 2017-02-23 10:53 | HHI.PR ---
Subjective Subjective Remarks Doing better, ambulating no dizziness no cp, no sob BP stable Blood pressure stable No fever NPO going for gastrograffin enema Liquid stool noted in ostomy, His skin around ostomy less erythematous, dry and flaky. Review of Systems Constitutional Constitutional Remarks 12 point review of systems completed, negative except as noted above Vitals/Results Intake & Output 02/22/17 02/22/17 02/23/17 14:59 22:59 06:59 Intake Total 1181 ml 1160 ml 1040 ml Output Total 600 ml 600 ml 400 ml Balance 581 ml 560 ml 640 ml Intake Oral 360 ml 240 ml IV Total 1181 ml 800 ml 800 ml Output Urine Total 600 ml 400 ml Stool Total 600 ml # Voids 3 0 # Bowel Movements 0 1 Vital Signs Vital Signs Date Time Temp Pulse Resp B/P Pulse Ox O2 Delivery O2 Flow Rate FiO2 02/23/17 08:04 97.6 78 18 138/80 96 02/23/17 04:00 97.8 79 18 129/80 94 02/23/17 00:00 97.9 83 18 116/60 95 02/22/17 20:35 Room Air 02/22/17 20:00 98.1 82 18 123/70 95 02/22/17 19:49 82 02/22/17 16:00 98.3 78 18 122/71 98 02/22/17 12:00 98.1 77 16 111/67 96 CBC/BMP: 02/23/17 0816 02/23/17 0816 Lab Results Laboratory Tests Test 02/22/17 02/23/17 11:45 08:16 Stool C. difficile Toxin (PCR) NEGATIVE Stl C. difficile Toxin PRESUMPTIVE Epiderm 027 NEGATIVE White Blood Count 4.3 TH/MM3 Red Blood Count 3.44 MIL/MM3 Hemoglobin 9.9 GM/DL Hematocrit 30.1 % Mean Corpuscular Volume 87.7 FL Mean Corpuscular Hemoglobin 28.9 PG Mean Corpuscular Hemoglobin 33.0 % Concent Red Cell Distribution Width 13.7 % Platelet Count 149 TH/MM3 Mean Platelet Volume 8.3 FL Sodium Level 141 MEQ/L Potassium Level 3.6 MEQ/L Chloride Level 111 MEQ/L Carbon Dioxide Level 20.0 MEQ/L Anion Gap 10 MEQ/L Blood Urea Nitrogen 14 MG/DL Creatinine 0.97 MG/DL Estimat Glomerular Filtration 83 ML/MIN Rate Random Glucose 94 MG/DL Calcium Level 8.0 MG/DL Physical Exam General General Appearance: Well Developed, No Acute Distress, Comfortable, Obese Eyes Eye Exam: Pupils Equal, Pupils Reactive Ears & Nose Ears & Nose Exam: Nasal Mucosa [place] Throat Throat Exam: Oral Mucosa [place] & Moist Neck Neck Exam: Neck Supple, Trachea Midline Pulmonary Resp Exam: Clear Bilaterally, No Distress Cardiology CV Exam: Regular, Good Perfusion Gastrointestinal/Abdomen GI Exam: Soft, Bowel Sounds Present, Non-Distended GI Remarks Ileostomy noted with liquid stool. His skin around ostomy noted with mildly erythematous skin, dry and flaky. Musculoskeletal MS Exam: Joints Intact Integumentary Skin Exam: Warm, Dry Extremeties Extremities Exam: No Edema, Pedal Pulses Palpable Neurologic Neuro Exam: Alert, Awake, Oriented, Speech Clear, Moving All Extremities, No Focal Deficits Psychiatric Psych Exam: Appropriate Responses VTE Prophylaxis VTE Prophylaxis Meds: Lovenox PUD Prophylasis PUD Prophylaxis: Protonix Assessment/Plan Problem List: (1) Syncope (2) Dehydration (3) Cellulitis (4) Severe sepsis (5) Acute kidney injury (6) DM (diabetes mellitus) (7) Hx of diverticulitis of colon (8) s/p laparoscopic lysis of adhesions, left sigmoid colectomy with diverting ileostomy Assessment/Plan 46-year-old male admitted after syncopal episode, found severely dehydrated in acute renal injury, septic, cellulitis of abdominal wall around the ileostomy site from leakage. Patient with history of diverticulitis, status post laparoscopic lysis of adhesions, left sigmoid colectomy with diverting ileostomy -Patient has been transferred out of ICU, hemodynamically stable. Blood pressure trending upwards Continue to hold antihypertensive agents DC IVF -renal function back to normal -enc. po intake Sepsis, with cellulitis of abdominal wall Continue with Azactam Lactic acid back to normal stools for C. difficile -negative -Ostomy nurse consultation -Dr. Llanos evaluated, input appreciated. Recommended gastrograffin enema to evaluate anastomosis. Dressing changes BID, due to the patient extremely large size, pouching is difficult, which makes treatment of wound infection difficult. Added Immodium to decrease output -f/u results of GE Type 2 diabetes, blood glucose stable Continue with Accu-Cheks before meals and at bedtime and insulin therapy History hypertension, was hypotensive Continue to hold antihypertensive agents, blood pressure is stable. Lovenox for DVT prophylaxis PPI for GI prophylaxis Labs have been reviewed, improving will f/u on GE results CM consult for DC planning, HHC poss dc 1-2 days Discussed with Discussed with her and Discussed with patient This patient was seen by myself and Dr. Palomares, this note is written his behalf Problem Qualifiers (1) Syncope: Qualified Code: R55 - Syncope, unspecified syncope type (2) Cellulitis: (3) DM (diabetes mellitus): Qualified Code: E11.9 - Type 2 diabetes mellitus without complication, unspecified group home insulin use status Lily Flores February 23, 2017 10:53
[2017-02-23] MEDS: PANTOPRAZOLE SODIUM 40 MG VIAL IV SCH (11:12)
[2017-02-23] MEDS: LOPERAMIDE HCL 2 MG CAP PO SCH ×2 (11:12→21:55)
[2017-02-23] MEDS: VERAPAMIL HCL 240 MG SUSTAINED RELEASE TAB PO SCH (11:12)
[2017-02-23] MEDS: FERROUS SULFATE 325 MG (65 MG ELEMENTAL IRON) TAB PO SCH (11:12)
--- NOTE | 2017-02-23 11:46 | RADRPT ---
EXAM DATE/TIME: 02/23/2017 09:51 [place] COMPARISON: CT ABDOMEN & PELVIS W/O CONTRAST, February 20, 2017, 17:42. MRI ABDOMEN W & W/O CONTRAST, June 08, 016, 11:15. CT ABSCESS DRAINAGE VISCERAL, June 08, 2016, 14:38. CT ABDOMEN & PELVIS W/O CONTRA ST, June 07, 2016, 20:22. CT ABDOMEN & PELVIS W/O CONTRAST, December 14, 2015, 3:36. INDICATIONS : History of diverticulitis. Patient is status post bowel resection and ileostomy. Evaluate anastomosis . FLUORO TIME: 0.9 minutes IMAGE COUNT: 21 CONTRAST: 1. [facility] MEDICAL HISTORY : diverticulitis, liver disorder SURGICAL HISTORY : ileostomy ENCOUNTER: Initial ACUITY: 3 days PAIN SCORE: Non-responsive. LOCATION: Bilateral abdomen FINDINGS: Preliminary film is unremarkable. Under fluoroscopic guidance a Gastrografin enema was performed with free flow of contrast to the ceca l tip. Multiple diverticuli are present in the sigmoid colon with no definite inflammatory change or obstruc tion. There are no large fixed filling defects, strictures or evidence of leakage. The terminal ileum appears intact with passage of barium into the distal small bowel. On the postevacuation contrast is noted in the ileostomy. Post evacuation radiographs are unremarkable. CONCLUSION: Mild to moderate diverticulosis with no evidence of obstruction or leakage. Jackson Herrera MD on February 23, 2017 at 11:39 Board Certified Radiologist. This report was verified electronically.
--- NOTE | 2017-02-23 18:48 | HHI.PR ---
Subjective Remarks Dehydration/ OLIVER Wound infection comfortable Objective Vital Signs Date Time Temp Pulse Resp B/P Pulse Ox O2 Delivery O2 Flow Rate FiO2 02/23/17 16:20 98.3 91 18 127/73 95 02/23/17 12:08 98.4 91 18 143/82 95 02/23/17 08:04 97.6 78 18 138/80 96 02/23/17 04:00 97.8 79 18 129/80 94 02/23/17 00:00 97.9 83 18 116/60 95 02/22/17 20:35 Room Air 02/22/17 20:00 98.1 82 18 123/70 95 02/22/17 19:49 82 I/O 02/22/17 02/22/17 02/22/17 02/23/17 02/23/17 02/23/17 07:00 15:00 23:00 07:00 15:00 23:00 Intake Total 892 ml 1181 ml 1160 ml 1040 ml 720 ml Output Total 600 ml 600 ml 400 ml 1200 ml Balance 892 ml 581 ml 560 ml 640 ml -480 ml Intake Oral 360 ml 240 ml 720 ml IV Total 892 ml 1181 ml 800 ml 800 ml Output Urine Total 600 ml 400 ml 700 ml Stool Total 600 ml 500 ml # Voids 3 0 # Bowel Movements 0 1 1 Result Diagram: 02/23/1716 02/23/1716 Objective Remarks Wound improved Stoma pink Assessment and Plan Assessment and Plan DEhydration/OLIVER/Wound infection Gastrografin enema without leak Will check schedule tomorrow re reanastomosis Riddhi Llanos MD February 23, 2017 18:47
[2017-02-23] MEDS: PRAVASTATIN SOD 40 MG TAB PO SCH (21:53)
[2017-02-23] MEDS: TERAZOSIN HCL 5 MG CAP PO SCH (21:53)
[2017-02-23] MEDS: ENOXAPARIN SODIUM 30 MG/0.3 ML SYRINGE SQ SCH (21:54)
[2017-02-24] MEDS: MORPHINE SULFATE 4 MG/ML INJ IV PRN ×6 (00:32→23:04)
[2017-02-24 00:50] VITALS: BP 120/64; PULSE 83; RESP 18; TEMP 97.9; O2SAT 94
[2017-02-24] MEDS: CHLORHEXIDINE GLUCONATE 2 % 1 PACK (2 CLOTHS) TOP SCH (03:42)
[2017-02-24 04:00] VITALS: BP 126/64; PULSE 74; RESP 18; TEMP 98; O2SAT 97
[2017-02-24] MEDS: AZTREONAM INJ 1,000 MG in SODIUM CHLORIDE 0.9% INJ 100 ML IV SCH ×3 (05:44→20:32)
[2017-02-24] MEDS: INSULIN ASPART SUPPLEMENTAL SCALE SQ SCH ×4 (06:47→20:34)
[2017-02-24 08:00] VITALS: BP 129/74; PULSE 74; PULSE 80; RESP 16; TEMP 98; O2SAT 95
[2017-02-24] MEDS: VERAPAMIL HCL 240 MG SUSTAINED RELEASE TAB PO SCH (09:00)
[2017-02-24] MEDS: FERROUS SULFATE 325 MG (65 MG ELEMENTAL IRON) TAB PO SCH (09:00)
[2017-02-24] MEDS: PANTOPRAZOLE SODIUM 40 MG VIAL IV SCH (09:00)
[2017-02-24] MEDS: LOPERAMIDE HCL 2 MG CAP PO SCH ×2 (09:00→20:32)
--- NOTE | 2017-02-24 09:54 | HHI.PR ---
Subjective Remarks Dehydration/ OLIVER Wound infection comfortable Objective Vital Signs Date Time Temp Pulse Resp B/P Pulse Ox O2 Delivery O2 Flow Rate FiO2 02/24/17 08:00 98.0 80 16 129/74 95 02/24/17 04:00 98.0 74 18 126/64 97 02/24/17 00:50 97.9 83 18 120/64 94 02/23/17 22:00 80 02/23/17 22:00 Room Air 02/23/17 20:00 97.4 85 18 131/74 95 02/23/17 16:20 98.3 91 18 127/73 95 02/23/17 12:08 98.4 91 18 143/82 95 I/O 02/23/17 02/23/17 02/23/17 02/24/17 02/24/17 02/24/17 07:00 15:00 23:00 07:00 15:00 23:00 Intake Total 1040 ml 720 ml 100 ml 100 ml Output Total 400 ml 1200 ml 1150 ml 350 ml Balance 640 ml -480 ml -1050 ml -250 ml Intake Oral 240 ml 720 ml IV Total 800 ml 100 ml 100 ml Output Urine Total 400 ml 700 ml 400 ml 200 ml Stool Total 500 ml 750 ml 150 ml # Bowel Movements 1 1 Result Diagram: 02/23/1716 02/23/17 0816 Objective Remarks Wound improved Stoma pink Assessment and Plan Assessment and Plan DEhydration/OLIVER/Wound infection On schedule for reanastomosis with wound debridement Thursday Riddhi Llanos MD February 24, 2017 09:54
--- NOTE | 2017-02-24 11:51 | HHI.PR ---
Subjective Subjective Remarks Resting in bed Alert oriented No acute pain or shortness of breath, states generalized chronic pain No dizziness Ileostomy draining adequate amounts of dark liquid stool,. No erythema or edema around site (Marizol Bejarano) Review of Systems Constitutional Constitutional: Fatigue (mild), Weakness (generalized) Constitutional Remarks 10 point ROS done positives noted other systems negative or unremarkable ( Marizol Bejarano) Pulmonary Respiratory: Coughing (occasional) (Marizol Bejarano) GI/Abdomen GI/Abdominal Exam: Nausea (controlled), Vomiting (none) GI/Abdomen Remarks Ileostomy draining dark brown stool, site clean dry and intact (Marizol Bejarano) Musculoskeletal MS: Weakness (normalized) (Marizol Bejarano) Psychiatric Psychiatric: Normal Mood, Anxiety (occasional) (Marizol Bejarano) Vitals/Results Intake & Output 02/23/17 02/23/17 02/24/17 14:59 22:59 06:59 Intake Total 720 ml 100 ml 100 ml Output Total 1200 ml 1150 ml 350 ml Balance -480 ml -1050 ml -250 ml Intake Oral 720 ml IV Total 100 ml 100 ml Output Urine Total 700 ml 400 ml 200 ml Stool Total 500 ml 750 ml 150 ml # Bowel Movements 1 Vital Signs Vital Signs Date Time Temp Pulse Resp B/P Pulse Ox O2 Delivery O2 Flow Rate FiO2 02/24/17 08:00 98.0 80 16 129/74 95 02/24/17 04:00 98.0 74 18 126/64 97 02/24/17 00:50 97.9 83 18 120/64 94 02/23/17 22:00 80 02/23/17 22:00 Room Air 02/23/17 20:00 97.4 85 18 131/74 95 02/23/17 16:20 98.3 91 18 127/73 95 02/23/17 12:08 98.4 91 18 143/82 95 (Marizol Bejarano) CBC/BMP: 02/23/17 0816 02/23/17 0816 Current Medications Administered Medications Medications (Trade) Dose Ordered Sig/Ketty Route PRN Reason Start Time Stop Time Status Last Admin Dose Admin Morphine Sulfate (Morphine Inj) 2 mg Q2H PRN IV PAIN SCALE 6 TO 10 02/20/17 18:00 02/24/17 09:15 Pantoprazole Sodium (Protonix Inj) 40 mg DAILY IV 02/21/17 09:00 02/24/17 09:00 Enoxaparin Sodium (Lovenox Inj) 30 mg Q24H SQ 02/20/17 20:00 02/23/17 21:54 Chlorhexidine Gluconate 3 pack 3 pack Taper DAILY@04 TOP 02/21/17 04:00 02/17/18 03:59 02/21/17 04:00 Aztreonam/Sodium Chloride (Azactam Inj/NS Inj) 100 ml @ 200 mls/hr Q8H IV 02/21/17 05:00 02/24/17 05:44 Ferrous Sulfate (Ferrous Sulfate) 325 mg DAILY PO 02/23/17 09:00 02/24/17 09:00 Terazosin HCl (Hytrin) 5 mg HS PO 02/22/17 21:00 02/23/17 21:53 Pravastatin Sodium (Pravachol) 40 mg HS PO 02/22/17 21:00 02/23/17 21:53 Verapamil HCl (Isoptin Sr) 240 mg DAILY PO 02/23/17 09:00 02/24/17 09:00 Loperamide HCl (Imodium) 2 mg BID PO 02/22/17 12:00 02/24/17 09:00 (Marizol Bejarano) Physical Exam General General Appearance: Well Developed, No Acute Distress, Comfortable, Anxious ( occasional), Obese (Marizol Bejarano) Eyes Eye Exam: Pupils Equal, Pupils Reactive (Marizol Bejarano) Ears & Nose Ears & Nose Exam: Nasal Mucosa [place] (Marizol Bejarano) Throat Throat Exam: Oral Mucosa [place] & Moist (Marizol Bejarano) Neck Neck Exam: Neck Supple, Trachea Midline (Marizol Bejarano) Pulmonary Resp Exam: Clear Bilaterally, No Distress (Marizol Bejarano) Cardiology CV Exam: Regular, Good Perfusion (Marizol Bejarano) Gastrointestinal/Abdomen GI Exam: Soft, Bowel Sounds Present, Non-Distended GI Remarks Ileostomy lower abdomen, draining liquid brown stool adequate amounts (Marizol Bejarano) Musculoskeletal MS Exam: Joints Intact (Marizol Bejarano) Integumentary Skin Exam: Warm, Dry (Marizol Bejarano) Extremeties Extremities Exam: No Edema, Pedal Pulses Palpable (Marizol Bejarano) Neurologic Neuro Exam: Alert, Awake, Oriented, Speech Clear, Moving All Extremities, No Focal Deficits (Marizol Bejarano) Psychiatric Psych Exam: Appropriate Responses (Marizol Bejarano) VTE Prophylaxis VTE Prophylaxis Meds: Lovenox (Marizol Bejarano) PUD Prophylasis PUD Prophylaxis: Protonix (Marizol Bejarano) Assessment/Plan Problem List: (1) Syncope (2) Dehydration (3) Cellulitis (4) Severe sepsis (5) Acute kidney injury (6) DM (diabetes mellitus) (7) Hx of diverticulitis of colon (8) s/p laparoscopic lysis of adhesions, left sigmoid colectomy with diverting ileostomy Assessment/Plan Vital signs reviewed, stable trends today Labs reviewed -renal function back to normal We will discontinue telemetry patient is having no symptoms of vertigo or dizziness, heart rate controlled -enc. po intake as well as nutrition Sepsis, with cellulitis of abdominal wall Continue with Azactam, lactic acid resolved -Ostomy nurse consultation -Dr. Llanos evaluated, input appreciated. Recommended gastrograffin enema which was done . Plan is for ileostomy reversal probable Thursday with wound debridement. Type 2 diabetes, blood glucose stable Continue with Accu-Cheks before meals and at bedtime and insulin therapy History hypertension, was hypotensive Continue to hold antihypertensive agents, blood pressure is stable. Lovenox for DVT prophylaxis PPI for GI prophylaxis Discharge planning, may be delayed if patient has surgery Thursday and needs to stay in-house for monitoring Discussed with , seen on her behalf Discussed with patient Discussed with nurse (Marizol Bejarano) Assessment/Plan patient seen and examined agree with above assessment and plan plan noted for colostomy reversal on Thursday continue current care discussed with patient discussed with Marizol RIVERA (Ninoska Palomares MD) Problem Qualifiers (1) Syncope: Qualified Code: R55 - Syncope, unspecified syncope type (2) Cellulitis: (3) DM (diabetes mellitus): Qualified Code: E11.9 - Type 2 diabetes mellitus without complication, unspecified 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
[2017-02-24 12:00] VITALS: BP 112/62; PULSE 83; RESP 12; TEMP 97.6; O2SAT 94
[2017-02-24 16:00] VITALS: BP 108/63; PULSE 74; RESP 12; TEMP 98.3; O2SAT 97
[2017-02-24] MEDS: TERAZOSIN HCL 5 MG CAP PO SCH (20:31)
[2017-02-24] MEDS: PRAVASTATIN SOD 40 MG TAB PO SCH (20:32)
[2017-02-24] MEDS: ENOXAPARIN SODIUM 30 MG/0.3 ML SYRINGE SQ SCH (20:32)
[2017-02-24 20:39] VITALS: BP 112/62; PULSE 78; RESP 20; TEMP 98.3; O2SAT 97
[2017-02-25 00:04] VITALS: BP 116/71; PULSE 72; RESP 18; TEMP 97.7; O2SAT 97
[2017-02-25 04:00] VITALS: BP 125/61; PULSE 72; RESP 18; TEMP 97.5; O2SAT 97
[2017-02-25] MEDS: CHLORHEXIDINE GLUCONATE 2 % 1 PACK (2 CLOTHS) TOP SCH (04:00)
[2017-02-25] MEDS: AZTREONAM INJ 1,000 MG in SODIUM CHLORIDE 0.9% INJ 100 ML IV SCH ×3 (05:31→21:09)
[2017-02-25] MEDS: INSULIN ASPART SUPPLEMENTAL SCALE SQ SCH ×4 (05:54→21:00)
--- NOTE | 2017-02-25 07:42 | HHI.PR ---
Subjective Remarks Dehydration/ OLIVER Wound infection comfortable Objective Vital Signs Date Time Temp Pulse Resp B/P Pulse Ox O2 Delivery O2 Flow Rate FiO2 02/25/17 04:00 97.5 72 18 125/61 97 02/25/17 00:04 97.7 72 18 116/71 97 02/24/17 20:39 98.3 78 20 112/62 97 02/24/17 20:30 Room Air 02/24/17 16:00 98.3 74 12 108/63 97 02/24/17 12:00 97.6 83 12 112/62 94 02/24/17 08:00 74 02/24/17 08:00 98.0 80 16 129/74 95 02/24/17 08:00 96 Room Air I/O 02/24/17 02/24/17 02/24/17 02/25/17 02/25/17 02/25/17 07:00 15:00 23:00 07:00 15:00 23:00 Intake Total 100 ml 720 ml 102 ml 100 ml Output Total 350 ml 400 ml 975 ml 650 ml Balance -250 ml 320 ml -873 ml -550 ml Intake Oral 720 ml IV Total 100 ml 102 ml 100 ml Output Urine Total 200 ml 400 ml 475 ml 650 ml Stool Total 150 ml 500 ml # Bowel Movements 1 0 Result Diagram: 02/23/1716 02/23/17815 Objective Remarks Wound less erythema Stoma pink, good function Assessment and Plan Assessment and Plan DEhydration/OLIVER/Wound infection OR thursday Riddhi Llanos MD February 25, 2017 07:42
[2017-02-25 08:04] VITALS: BP 123/68; PULSE 76; RESP 18; TEMP 97.8; O2SAT 96
[2017-02-25] MEDS: VERAPAMIL HCL 240 MG SUSTAINED RELEASE TAB PO SCH (08:28)
[2017-02-25] MEDS: LOPERAMIDE HCL 2 MG CAP PO SCH ×2 (08:28→21:10)
[2017-02-25] MEDS: PANTOPRAZOLE SODIUM 40 MG VIAL IV SCH (08:28)
[2017-02-25] MEDS: FERROUS SULFATE 325 MG (65 MG ELEMENTAL IRON) TAB PO SCH (08:28)
--- NOTE | 2017-02-25 10:57 | HHI.PR ---
Subjective Subjective Remarks Resting in bed Alert oriented No acute pain or shortness of breath No dizziness Ileostomy draining adequate amounts of dark liquid stool,. No erythema or edema around site abd wound, CDI, with [place] drain, no erythema (Marizol Bejarano) Review of Systems Constitutional Constitutional: Fatigue (mild), Weakness (generalized) Constitutional Remarks 10 point ROS done positives noted other systems negative or unremarkable ( Marizol Bejarano) Pulmonary Respiratory: Coughing (occasional) (Marizol Bejarano) GI/Abdomen GI/Abdominal Exam: Nausea (controlled), Vomiting (none) GI/Abdomen Remarks Ileostomy draining dark brown stool, site clean dry and intact (Marizol Bejarano) Musculoskeletal MS: Weakness (normalized) (Marizol Bejarano) Psychiatric Psychiatric: Normal Mood, Anxiety (occasional) (Marizol Bejarano) Vitals/Results Intake & Output 02/24/17 02/24/17 02/25/17 14:59 22:59 06:59 Intake Total 720 ml 102 ml 100 ml Output Total 400 ml 975 ml 650 ml Balance 320 ml -873 ml -550 ml Intake Oral 720 ml IV Total 102 ml 100 ml Output Urine Total 400 ml 475 ml 650 ml Stool Total 500 ml # Bowel Movements 1 0 Vital Signs Vital Signs Date Time Temp Pulse Resp B/P Pulse Ox O2 Delivery O2 Flow Rate FiO2 02/25/17 08:04 97.8 76 18 123/68 96 02/25/17 04:00 97.5 72 18 125/61 97 02/25/17 00:04 97.7 72 18 116/71 97 02/24/17 20:39 98.3 78 20 112/62 97 02/24/17 20:30 Room Air 02/24/17 16:00 98.3 74 12 108/63 97 02/24/17 12:00 97.6 83 12 112/62 94 (Marizol Bejarano) CBC/BMP: 02/23/17 0816 02/23/17 0816 Current Medications Administered Medications Medications (Trade) Dose Ordered Sig/Ketty Route PRN Reason Start Time Stop Time Status Last Admin Dose Admin Morphine Sulfate (Morphine Inj) 2 mg Q2H PRN IV PAIN SCALE 6 TO 10 02/20/17 18:00 02/24/17 23:04 Pantoprazole Sodium (Protonix Inj) 40 mg DAILY IV 02/21/17 09:00 02/25/17 08:28 Enoxaparin Sodium (Lovenox Inj) 30 mg Q24H SQ 02/20/17 20:00 02/24/17 20:32 Chlorhexidine Gluconate 3 pack 3 pack Taper DAILY@04 TOP 02/21/17 04:00 02/17/18 03:59 02/21/17 04:00 Aztreonam/Sodium Chloride (Azactam Inj/NS Inj) 100 ml @ 200 mls/hr Q8H IV 02/21/17 05:00 02/25/17 05:31 Ferrous Sulfate (Ferrous Sulfate) 325 mg DAILY PO 02/23/17 09:00 02/25/17 08:28 Terazosin HCl (Hytrin) 5 mg HS PO 02/22/17 21:00 02/24/17 20:31 Pravastatin Sodium (Pravachol) 40 mg HS PO 02/22/17 21:00 02/24/17 20:32 Verapamil HCl (Isoptin Sr) 240 mg DAILY PO 02/23/17 09:00 02/25/17 08:28 Loperamide HCl (Imodium) 2 mg BID PO 02/22/17 12:00 02/25/17 08:28 (Marizol Bejarano) Physical Exam General General Appearance: Well Developed, No Acute Distress, Comfortable, Anxious ( occasional), Obese (Marizol Bejarano) Eyes Eye Exam: Pupils Equal, Pupils Reactive (Marizol Bejarano) Ears & Nose Ears & Nose Exam: Nasal Mucosa [place] (Marizol BejaranoP) Throat Throat Exam: Oral Mucosa [place] & Moist (Marizol BejaranoP) Neck Neck Exam: Neck Supple, Trachea Midline (Marizol BejaranoP) Pulmonary Resp Exam: Clear Bilaterally, No Distress (Marizol BejaranoP) Cardiology CV Exam: Regular, Good Perfusion (Marizol BejaranoP) Gastrointestinal/Abdomen GI Exam: Soft, Bowel Sounds Present, Non-Distended GI Remarks Ileostomy lower abdomen, draining liquid brown stool adequate amounts (Marizol Bejarano) Musculoskeletal MS Exam: Joints Intact (Marizol Bejarano) Integumentary Skin Exam: Warm, Dry (Marizol Bejarano) Extremeties Extremities Exam: No Edema, Pedal Pulses Palpable (Marizol Bejarano) Neurologic Neuro Exam: Alert, Awake, Oriented, Speech Clear, Moving All Extremities, No Focal Deficits (Marizol Bejarano) Psychiatric Psych Exam: Appropriate Responses (Marizol Bejarano) VTE Prophylaxis VTE Prophylaxis Meds: Lovenox (Marizol Bejarano) PUD Prophylasis PUD Prophylaxis: Protonix (Marizol Bejarano) Assessment/Plan Problem List: (1) Syncope (2) Dehydration (3) Cellulitis (4) Severe sepsis (5) Acute kidney injury (6) DM (diabetes mellitus) (7) Hx of diverticulitis of colon (8) s/p laparoscopic lysis of adhesions, left sigmoid colectomy with diverting ileostomy Assessment/Plan (1) Syncope (2) Dehydration (3) Cellulitis (4) Severe sepsis (5) Acute kidney injury (6) DM (diabetes mellitus) (7) Hx of diverticulitis of colon (8) s/p laparoscopic lysis of adhesions, left sigmoid colectomy with diverting ileostomy Assessment/Plan Vital signs reviewed, normal trends Labs reviewed, no acute changes. [place] labs am -enc. po intake as well as nutrition Sepsis, with cellulitis of abdominal wall Continue with Azactam, lactic acid resolved -Ostomy nurse consultation -Dr. Llanos evaluated, input appreciated. Recommended gastrograffin enema which was done . Plan is for ileostomy reversal probable Thursday with wound debridement. pain management Type 2 diabetes, blood glucose stable Continue with Accu-Cheks before meals and at bedtime and insulin therapy History hypertension, was hypotensive Continue to hold antihypertensive agents, blood pressure is stable. Lovenox for DVT prophylaxis PPI for GI prophylaxis Discharge planning,reversal and wound debridement Thursday. 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
[2017-02-25] MEDS: MORPHINE SULFATE 4 MG/ML INJ IV PRN ×3 (11:06→22:54)
[2017-02-25 12:04] VITALS: BP 123/72; PULSE 80; RESP 18; TEMP 98; O2SAT 95
[2017-02-25 16:04] VITALS: BP 128/68; PULSE 68; RESP 17; TEMP 97.7; O2SAT 97
[2017-02-25 20:05] VITALS: BP 125/65; PULSE 84; RESP 16; TEMP 99.1; O2SAT 95
[2017-02-25] MEDS: ENOXAPARIN SODIUM 30 MG/0.3 ML SYRINGE SQ SCH (21:09)
[2017-02-25] MEDS: PRAVASTATIN SOD 40 MG TAB PO SCH (21:10)
[2017-02-25] MEDS: TERAZOSIN HCL 5 MG CAP PO SCH (21:10)
[2017-02-26] VITALS: BP 116/66; PULSE 74; RESP 20; TEMP 97.8; O2SAT 97
[2017-02-26 04:00] VITALS: BP 128/75; PULSE 78; RESP 20; TEMP 97.7; O2SAT 97
[2017-02-26] MEDS: CHLORHEXIDINE GLUCONATE 2 % 1 PACK (2 CLOTHS) TOP SCH (04:00)
[2017-02-26] MEDS: INSULIN ASPART SUPPLEMENTAL SCALE SQ SCH ×4 (04:22→20:23)
[2017-02-26] MEDS: AZTREONAM INJ 1,000 MG in SODIUM CHLORIDE 0.9% INJ 100 ML IV SCH ×3 (04:22→21:27)
[2017-02-26] MEDS: MORPHINE SULFATE 4 MG/ML INJ IV PRN ×6 (06:33→23:40)
[2017-02-26 07:43] LABS: HEMATOCRIT 30.9 % (39.0-51.0); MEAN CELL VOLUME 86.9 FL (80.0-100.0); MEAN CORPUSCULAR HEMOGLOBIN 29.2 PG (27.0-34.0); MEAN CORPUSCULAR HGB CONC 33.6 % (32.0-36.0); PLATELET COUNT 153 TH/MM3 (150-450); RED BLOOD COUNT 3.55 MIL/MM3 (4.50-5.90); RED CELL DISTRIBUTION WIDTH 13.8 % (11.6-17.2); REVIEW FLAG FINAL; WHITE BLOOD COUNT 5.5 TH/MM3 (4.0-11.0)
[2017-02-26 08:00] VITALS: BP 139/78; PULSE 80; RESP 20; TEMP 97.7; O2SAT 98
[2017-02-26 08:15] LABS: BICARBONATE 22.6 MEQ/L (21.0-32.0); POTASSIUM 3.4 MEQ/L (3.5-5.1)
[2017-02-26] MEDS: FERROUS SULFATE 325 MG (65 MG ELEMENTAL IRON) TAB PO SCH (09:00)
[2017-02-26] MEDS: PANTOPRAZOLE SODIUM 40 MG VIAL IV SCH (09:41)
[2017-02-26] MEDS: LOPERAMIDE HCL 2 MG CAP PO SCH ×2 (09:41→21:28)
[2017-02-26] MEDS: VERAPAMIL HCL 240 MG SUSTAINED RELEASE TAB PO SCH (09:41)
--- NOTE | 2017-02-26 11:30 | HHI.PR ---
Subjective Remarks Dehydration/ OLIVER Wound infection comfortable Objective Vital Signs Date Time Temp Pulse Resp B/P Pulse Ox O2 Delivery O2 Flow Rate FiO2 02/26/17 08:00 97.7 80 20 139/78 98 02/26/17 04:00 97.7 78 20 128/75 97 02/26/17 00:00 97.8 74 20 116/66 97 02/25/17 20:05 99.1 84 16 125/65 95 02/25/17 20:00 Room Air 02/25/17 16:04 97.7 68 17 128/68 97 02/25/17 12:04 98.0 80 18 123/72 95 I/O 02/25/17 02/25/17 02/25/17 02/26/17 02/26/17 02/26/17 07:00 15:00 23:00 07:00 15:00 23:00 Intake Total 100 ml 480 ml 580 ml 220 ml Output Total 650 ml 1200 ml 600 ml 1200 ml Balance -550 ml -720 ml -20 ml -980 ml Intake Oral 480 ml 480 ml 220 ml IV Total 100 ml 100 ml Output Urine Total 650 ml 1200 ml 600 ml 300 ml Stool Total 900 ml # Bowel Movements 0 1 1 Result Diagram: 02/26/17 0612 02/26/17 06 Objective Remarks Wound less erythema Stoma pink, good function Assessment and Plan Assessment and Plan DEhydration/OLIVER/Wound infection OR tomorrow Riddhi Llanos MD February 26, 2017 11:30
[2017-02-26 12:00] VITALS: BP 139/80; PULSE 82; RESP 20; TEMP 97.8; O2SAT 97
[2017-02-26] MEDS ORDERED: ceFAZolin 2 GM PREMIX 50 ML IV ONE (12:00)
[2017-02-26] MEDS ORDERED: POTASSIUM CHLORIDE 25 MEQ EFFERVESCENT TAB PO ONE ×2 (12:00→13:15)
--- NOTE | 2017-02-26 13:19 | HHI.PR ---
Subjective Subjective Remarks skin around ostomy better, less erythema, less dry liquid stool no abd. pain no cp no sob afebrile NPO tonight, going to OR for reversal ileostomy Review of Systems Constitutional Constitutional Remarks 12 point review of systems completed, negative except as noted above Vitals/Results Intake & Output 02/25/17 02/25/17 02/26/17 14:59 22:59 06:59 Intake Total 480 ml 580 ml 220 ml Output Total 1200 ml 600 ml 1200 ml Balance -720 ml -20 ml -980 ml Intake Oral 480 ml 480 ml 220 ml IV Total 100 ml Output Urine Total 1200 ml 600 ml 300 ml Stool Total 900 ml # Bowel Movements 1 1 Vital Signs Vital Signs Date Time Temp Pulse Resp B/P Pulse Ox O2 Delivery O2 Flow Rate FiO2 02/26/17 08:00 97.7 80 20 139/78 98 02/26/17 04:00 97.7 78 20 128/75 97 02/26/17 00:00 97.8 74 20 116/66 97 02/25/17 20:05 99.1 84 16 125/65 95 02/25/17 20:00 Room Air 02/25/17 16:04 97.7 68 17 128/68 97 CBC/BMP: 02/26/17 0612 02/26/17 0612 Lab Results Laboratory Tests Test 02/26/17 06:12 White Blood Count 5.5 TH/MM3 Red Blood Count 3.55 MIL/MM3 Hemoglobin 10.4 GM/DL Hematocrit 30.9 % Mean Corpuscular Volume 86.9 FL Mean Corpuscular Hemoglobin 29.2 PG Mean Corpuscular Hemoglobin 33.6 % Concent Red Cell Distribution Width 13.8 % Platelet Count 153 TH/MM3 Mean Platelet Volume 8.6 FL Sodium Level 142 MEQ/L Potassium Level 3.4 MEQ/L Chloride Level 110 MEQ/L Carbon Dioxide Level 22.6 MEQ/L Anion Gap 9 MEQ/L Blood Urea Nitrogen 11 MG/DL Creatinine 1.00 MG/DL Estimat Glomerular Filtration 80 ML/MIN Rate Random Glucose 85 MG/DL Calcium Level 8.3 MG/DL Physical Exam General General Appearance: Well Developed, No Acute Distress, Comfortable, Obese Eyes Eye Exam: Pupils Equal, Pupils Reactive Ears & Nose Ears & Nose Exam: Nasal Mucosa [place] Throat Throat Exam: Oral Mucosa [place] & Moist Neck Neck Exam: Neck Supple, Trachea Midline Pulmonary Resp Exam: Clear Bilaterally, No Distress Cardiology CV Exam: Regular, Good Perfusion Gastrointestinal/Abdomen GI Exam: Soft, Bowel Sounds Present, Non-Distended GI Remarks Ileostomy noted with liquid stool. His skin around ostomy noted with mildly erythematous skin, dry and flaky-improving. Musculoskeletal MS Exam: Joints Intact Integumentary Skin Exam: Warm, Dry Extremeties Extremities Exam: No Edema, Pedal Pulses Palpable Neurologic Neuro Exam: Alert, Awake, Oriented, Speech Clear, Moving All Extremities, No Focal Deficits Psychiatric Psych Exam: Appropriate Responses VTE Prophylaxis VTE Prophylaxis Meds: Lovenox PUD Prophylasis PUD Prophylaxis: Protonix Assessment/Plan Problem List: (1) Syncope (2) Dehydration (3) Cellulitis (4) Severe sepsis (5) Acute kidney injury (6) DM (diabetes mellitus) (7) Hx of diverticulitis of colon (8) s/p laparoscopic lysis of adhesions, left sigmoid colectomy with diverting ileostomy Assessment/Plan 46-year-old male admitted after syncopal episode, found severely dehydrated in acute renal injury, septic, cellulitis of abdominal wall around the ileostomy site from leakage. Patient with history of diverticulitis, status post laparoscopic lysis of adhesions, left sigmoid colectomy with diverting ileostomy -Patient has been transferred out of ICU, hemodynamically stable. Blood pressure trending upwards Continue to hold antihypertensive agents -renal function back to normal -enc. po intake Sepsis, with cellulitis of abdominal wall Continue with Azactam Lactic acid back to normal stools for C. difficile -negative -Dr. Llanos evaluated, input appreciated. Dressing changes BID, due to the patient extremely large size, pouching is difficult, which makes treatment of wound infection difficult. Added Immodium to decrease output -GE results noted, no obstruction, no leaking -going to OR tomorrow for ileostomy reanastomosis with wound debridement Type 2 diabetes, blood glucose stable Continue with Accu-Cheks before meals and at bedtime and insulin therapy History hypertension, was hypotensive Continue to hold antihypertensive agents, blood pressure is stable. continue ambulating tele has been dc Labs reviewed, replace K Lovenox for DVT prophylaxis PPI for GI prophylaxis To OR tomorrow, NPO after midnight. poss home with [facility] next week. Discussed with Discussed with RN Discussed with patient This patient was seen by myself and Dr. 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
[2017-02-26 16:00] VITALS: BP 106/66; PULSE 89; RESP 20; TEMP 97.5; O2SAT 93
[2017-02-26 20:00] VITALS: BP 115/68; PULSE 73; RESP 16; TEMP 97.5; O2SAT 97
[2017-02-26] MEDS: ENOXAPARIN SODIUM 30 MG/0.3 ML SYRINGE SQ SCH (21:27)
[2017-02-26] MEDS: TERAZOSIN HCL 5 MG CAP PO SCH (21:28)
[2017-02-26] MEDS: PRAVASTATIN SOD 40 MG TAB PO SCH (21:28)
[2017-02-27] VITALS (7 sets, daily range): BP systolic 121–136; BP diastolic 66–81; PULSE 70–103; RESP 16–20; TEMP 97.1–97.9; O2SAT 95–98
[2017-02-27] MEDS: CHLORHEXIDINE GLUCONATE 2 % 1 PACK (2 CLOTHS) TOP SCH (04:00)
[2017-02-27] MEDS: AZTREONAM INJ 1,000 MG in SODIUM CHLORIDE 0.9% INJ 100 ML IV SCH ×3 (05:42→21:53)
[2017-02-27] MEDS: MORPHINE SULFATE 4 MG/ML INJ IV PRN ×2 (05:44→08:56)
[2017-02-27] MEDS: INSULIN ASPART SUPPLEMENTAL SCALE SQ SCH ×4 (05:48→21:00)
--- NOTE | 2017-02-27 08:27 | HHI.PR ---
Subjective Subjective Remarks Resting in bed rested fairly well last night No acute pain or shortness of breath Ileostomy draining adequate amounts of dark liquid stool,. See only took some last night but skin looks good around site. abd wound, at ileostomy site clean dry and intact and healing Review of Systems Constitutional Constitutional Remarks 10 point ROS done positives noted other systems negative or unremarkable Pulmonary Respiratory: Coughing (occasional) GI/Abdomen GI/Abdominal Exam: Diarrhea (stool is loose liquid from ileostomy site) GI/Abdomen Remarks Ileostomy draining dark brown stool, site clean dry and intact Musculoskeletal MS: Weakness (generalized but mild) Neurologic Neurologic Remarks Alert does use pain management Psychiatric Psychiatric: Normal Mood, Anxiety (mild at times) Vitals/Results Intake & Output 02/26/17 02/26/17 02/27/17 15:00 23:00 07:00 Intake Total 768 ml 360 ml 105 ml Output Total 1225 ml 400 ml Balance -457 ml 360 ml -295 ml Intake Oral 720 ml 240 ml 0 ml IV Total 48 ml 120 ml 105 ml Output Urine Total 525 ml 400 ml Stool Total 700 ml # Voids 0 # Bowel Movements 0 Vital Signs Vital Signs Date Time Temp Pulse Resp B/P Pulse Ox O2 Delivery O2 Flow Rate FiO2 02/27/17 04:00 97.9 73 16 129/71 97 02/27/17 00:00 97.8 70 18 127/72 96 02/26/17 20:25 Room Air 02/26/17 20:00 97.5 73 16 115/68 97 02/26/17 16:00 97.5 89 20 106/66 93 02/26/17 12:00 97.8 82 20 139/80 97 CBC/BMP: 02/26/17 0612 02/26/17 0612 Current Medications Administered Medications Medications (Trade) Dose Ordered Sig/Ketty Route PRN Reason Start Time Stop Time Status Last Admin Dose Admin Morphine Sulfate (Morphine Inj) 2 mg Q2H PRN IV PAIN SCALE 6 TO 10 02/20/17 18:00 02/27/17 08:56 Pantoprazole Sodium (Protonix Inj) 40 mg DAILY IV 02/21/17 09:00 02/27/17 08:49 Enoxaparin Sodium (Lovenox Inj) 30 mg Q24H SQ 02/20/17 20:00 02/26/17 21:27 Chlorhexidine Gluconate Taper DAILY@04 [facility] 02/21/17 04:00 02/17/18 03:59 02/21/17 04:00 Aztreonam/Sodium Chloride (Azactam Inj/NS Inj) 100 ml @ 200 mls/hr Q8H IV 02/21/17 05:00 02/27/17 05:42 Ferrous Sulfate (Ferrous Sulfate) 325 mg DAILY PO 02/23/17 09:00 02/27/17 08:47 Terazosin HCl (Hytrin) 5 mg HS PO 02/22/17 21:00 02/26/17 21:28 Pravastatin Sodium (Pravachol) 40 mg HS PO 02/22/17 21:00 02/26/17 21:28 Verapamil HCl (Isoptin Sr) 240 mg DAILY PO 02/23/17 09:00 02/27/17 08:46 Loperamide HCl (Imodium) 2 mg BID PO 02/22/17 12:00 02/27/17 08:47 Physical Exam General General Appearance: Well Developed, No Acute Distress, Comfortable, Obese Eyes Eye Exam: Pupils Equal, Pupils Reactive Ears & Nose Ears & Nose Exam: Nasal Mucosa [place] Throat Throat Exam: Oral Mucosa [place] & Moist Neck Neck Exam: Neck Supple, Trachea Midline Pulmonary Resp Exam: Clear Bilaterally, No Distress Cardiology CV Exam: Regular, Good Perfusion Gastrointestinal/Abdomen GI Exam: Soft, Bowel Sounds Present, Non-Distended GI Remarks Ileostomy lower abdomen, draining liquid brown stool adequate amounts Musculoskeletal MS Exam: Joints Intact Integumentary Skin Exam: Warm, Dry Extremeties Extremities Exam: No Edema, Pedal Pulses Palpable Neurologic Neuro Exam: Alert, Awake, Oriented, Speech Clear, Moving All Extremities, No Focal Deficits Psychiatric Psych Exam: Appropriate Responses VTE Prophylaxis VTE Prophylaxis Meds: Lovenox PUD Prophylasis PUD Prophylaxis: Protonix Assessment/Plan Problem List: (1) Syncope (2) Dehydration (3) Cellulitis (4) Severe sepsis (5) Acute kidney injury (6) DM (diabetes mellitus) (7) Hx of diverticulitis of colon (8) s/p laparoscopic lysis of adhesions, left sigmoid colectomy with diverting ileostomy Assessment/Plan 46-year-old male admitted after syncopal episode, found severely dehydrated in acute renal injury, septic, cellulitis of abdominal wall around the ileostomy site from leakage. Patient with history of diverticulitis, status post laparoscopic lysis of adhesions, left sigmoid colectomy with diverting ileostomy Sepsis, with cellulitis of abdominal wall, controlled and responding well to antibiotics Continue with Azactam -Dr. Llanos evaluated, input appreciated -GE results noted, no obstruction, no leaking -going to OR today this p.m. likely for ileostomy reanastomosis with wound debridement Type 2 diabetes, blood glucose stable Continue with Accu-Cheks before meals and at bedtime and insulin therapy History hypertension, stable vital signs and normal trends for now Continue to hold antihypertensive agents, blood pressure is stable. Labs reviewed, Hypokalemia mild, K was replaced yesterday we'll recheck potassium level this morning before surgery Lovenox for DVT prophylaxis PPI for GI prophylaxis DC planning, after postop care and stabilize, poss home with [facility] next week. Problem Qualifiers (1) Syncope: Qualified Code: R55 - Syncope, unspecified syncope type (2) Cellulitis: (3) DM (diabetes mellitus): Qualified Code: E11.9 - Type 2 diabetes mellitus without complication, unspecified exterminator helper insulin use status Marizol Bejarano February 27, 2017 08:27
[2017-02-27] MEDS: VERAPAMIL HCL 240 MG SUSTAINED RELEASE TAB PO SCH (08:46)
[2017-02-27] MEDS: FERROUS SULFATE 325 MG (65 MG ELEMENTAL IRON) TAB PO SCH (08:47)
[2017-02-27] MEDS: LOPERAMIDE HCL 2 MG CAP PO SCH ×2 (08:47→21:54)
[2017-02-27] MEDS: PANTOPRAZOLE SODIUM 40 MG VIAL IV SCH (08:49)
[2017-02-27] MEDS ORDERED: ONDANSETRON HCL 4 MG/2 ML VIAL IV PUSH ONE (12:00)
[2017-02-27] MEDS ORDERED: LACTATED RINGER'S 1000 ML INJ 2,000 ML IV ONE (12:00)
[2017-02-27] MEDS ORDERED: PROPOFOL 200 MG/20 ML AMP IV ONE (12:00)
[2017-02-27] MEDS ORDERED: fentaNYL CITRATE 250 MCG/5 ML AMP ONE ×3 (12:23→16:04)
[2017-02-27] MEDS ORDERED: ACETAMINOPHEN 1000 MG/100 ML VIAL IV ONE (12:23)
[2017-02-27] MEDS ORDERED: MIDAZOLAM HCL 2 MG/2 ML VIAL ONE (12:23)
[2017-02-27] MEDS ORDERED: LIDOCAINE 0.5%/EPINEPHrine 1:200,000 SOLN 50 ML VIAL ONE (12:48)
[2017-02-27] MEDS ORDERED: SUGAMMADEX SODIUM 200 MG/2 ML VIAL IV PUSH ONE ×2 (12:53)
[2017-02-27] MEDS ORDERED: FAMOTIDINE 20 MG/2 ML VIAL ONE (12:53)
[2017-02-27] MEDS ORDERED: CLINDAMYCIN PHOS 600 MG/4 ML VIAL ONE (13:31)
[2017-02-27] MEDS ORDERED: ceFAZolin 2 GM PREMIX 50 ML ONE (13:31)
[2017-02-27] MEDS ORDERED: HYDROmorphone HCL PF 2 MG/ML VIAL ONE (14:46)
[2017-02-27] MEDS: KETOROLAC TROMETHAMINE 30 MG/ML (IVP) VIAL IVP SCH ×2 (16:00→21:55)
[2017-02-27] MEDS ORDERED: ACETAMINOPHEN/HYDROcodone 325 MG/5 MG TAB PO PRN ×2 (16:00)
[2017-02-27] MEDS ORDERED: Post-op Orders (for Pharmacy) MISC XX ONE (16:00)
[2017-02-27] MEDS ORDERED: POTASSIUM CHLOR 20 MEQ PREMIX 100 ML IV PRN (16:00)
[2017-02-27] MEDS ORDERED: ENALAPRILAT 1.25 MG/ML VIAL IV PRN (16:00)
[2017-02-27] MEDS ORDERED: ENALAPRILAT 2.5 MG/2 ML VIAL IV PRN (16:00)
[2017-02-27] MEDS ORDERED: ONDANSETRON HCL 4 MG/2 ML VIAL IV PRN (16:00)
[2017-02-27] MEDS ORDERED: BENZOCAINE 6 MG/MENTHOL 10 MG LOZENGE BUCCAL PRN (16:00)
[2017-02-27] MEDS: D5-NS + KCL 20 MEQ INJ 1,000 ML IV SCH ×2 (16:00→23:34)
[2017-02-27] MEDS ORDERED: POTASSIUM CHLOR 40 MEQ PREMIX 100 ML IV PRN (16:00)
[2017-02-27] MEDS ORDERED: SODIUM CHLORIDE 0.9% FLUSH 5 ML FLUSH IVF PRN (16:00)
[2017-02-27] MEDS ORDERED: NALOXONE HCL 0.4 MG/ML AMP IV PRN (16:00)
[2017-02-27] MEDS ORDERED: diphenhydrAMINE HCL 50 MG/ML VIAL IV PRN (16:00)
[2017-02-27] MEDS ORDERED: MORPHINE SULFATE 4 MG/ML INJ ONE (16:04)
[2017-02-27] MEDS ORDERED: *ONDANSETRON 4 MG VIAL PERIprocedural Use ONLY ONE (16:22)
[2017-02-27] MEDS: MORPHINE SULFATE 30 MG/30 ML PCA IV SCH (16:26)
[2017-02-27] MEDS ORDERED: DO NOT ADM ANY ANTICOAGULANT DRUGS PRN (16:45)
--- NOTE | 2017-02-27 17:59 | MP ---
cc: QUOC LLANOS MD DATE OF SURGERY PREOPERATIVE DIAGNOSIS 1. History of diverticulitis with resection and diversion 2. Wound infection. POSTOPERATIVE DIAGNOSIS 1. History of diverticulitis with resection and diversion 2. Wound infection. PROCEDURE Resection with reanastomosis of ileostomy, and wound debridement. SURGEON Jaswant Llanos MD [employer] TECHNICIAN [place] ANESTHESIA General per ET tube ESTIMATED BLOOD LOSS 100 mL OPERATIVE INDICATIONS The patient is of 46-year-old male who is just about 2 months out from a robotic resection with diverting loop ileostomy for severe diverticulitis. Due to his morbid obesity, he had problems with wound healing, as well as high ileostomy output. He had been in and out of the hospital several times since his surgery. Gastrografin enema showed good healing at his anastomosis without any sign of any leakage noted. OPERATIVE FINDINGS The patient had a small midline wound just below the umbilicus. It was quite deep of course due to his morbid obesity. There was quite a bit of adhesions of small bowel throughout this area and two or three small pockets of induration, as well as one small pocket of purulence. PROCEDURE IN DETAIL The patient was brought to the operating room, and placed in the supine position. After induction of general anesthesia, the stoma site was sutured closed. The skin of the anterior abdominal wall was then prepped and draped in the usual sterile fashion. The skin was incised sharply around the stoma and down along the upper part of the incision down to the open part of his previous incision. Using electrocautery, dissection was carried down to the stoma site and this was carefully and painstakingly dissected free down to the level of the fascia. Eventually, we were able to get down to level of the fascia, although the bowel was quite adherent throughout this area. There was one small pocket of purulence we encountered during this dissection that we suctioned out. Eventually, we were able to open up the fascia along most of the length of the previous incision and gradually and slowly we were able to dissect the bowel free circumferentially from the undersurface of the fascia. There was one small area of the bowel on the distal end of the stoma where there was a small tear in the bowel, perhaps 3-4 cm distal to the ileostomy. I elected to take that with my specimen. Eventually, once I had full mobility of the bowel circumferentially, a site was chosen for proximal and distal division of the bowel. The mesentery was opened and a blue load of the DAMON stapler was placed across the bowel proximally and distally, being sure to incorporate the small injury to the bowel into the specimen to be removed. The intervening mesentery was then serially divided and ligated using 0 Vicryl ties. The fascia was then cleared circumferentially both proximally and distally in order to allow a more reasonable closure. The antimesenteric corners of the staple line were then removed sharply. One limb of the gastrointestinal stapler was placed down each limb of the bowel. This was closed along the antimesenteric border, fired, and removed, thus creating an enteroenterotomy. The resulting enterotomy was closed transversely, using the TX 60 stapling device. Two simple stay sutures were placed at the end of the anastomosis using 3-0 Vicryl and a suture was also placed to reinforce the anastomosis. A small area of bleeding around the staple line was controlled in a [id number] fashion using 3-0 Vicryl. The anastomosis was then gently placed back into the peritoneal cavity. The wound was copiously irrigated with warm normal saline. The fascia of the anterior abdominal wall was then closed in a running fashion using looped #1 PDS. Several small areas of indurated tissue were then excised using electrocautery. The wound was again copiously irrigated with warm normal saline and a VAC dressing was placed. All sponge, needle and instrument counts were correct and the patient was returned to the post anesthesia care unit in stable condition. MD SARAH Villa/ /3:59 PM /5:43 PM CASPER
[2017-02-27] MEDS: SODIUM CHLORIDE 0.9% FLUSH 5 ML FLUSH IVF SCH (21:00)
[2017-02-27] MEDS: PRAVASTATIN SOD 40 MG TAB PO SCH (21:00)
[2017-02-27 21:18] LABS: BASOPHIL % 0.1 % (0.0-2.0); EOSINOPHIL % 0.1 % (0.0-4.0); HEMATOCRIT 30.2 % (39.0-51.0); HEMO FLAGS DIFF FINAL; LYMPH % 5.5 % (9.0-44.0); LYMPHOCYTE # 0.5 TH/MM3 (1.0-4.8); MEAN CELL VOLUME 85.8 FL (80.0-100.0); MEAN CORPUSCULAR HEMOGLOBIN 29.7 PG (27.0-34.0); MEAN CORPUSCULAR HGB CONC 34.6 % (32.0-36.0); MONO % 1.6 % (0.0-8.0); NEUT % 92.7 % (16.0-70.0); PLATELET COUNT 168 TH/MM3 (150-450); RED BLOOD COUNT 3.53 MIL/MM3 (4.50-5.90); RED CELL DISTRIBUTION WIDTH 13.4 % (11.6-17.2); WHITE BLOOD COUNT 9.8 TH/MM3 (4.0-11.0)
[2017-02-27 21:30] LABS: BICARBONATE 23.1 MEQ/L (21.0-32.0); POTASSIUM 4.3 MEQ/L (3.5-5.1)
[2017-02-27] MEDS: TERAZOSIN HCL 5 MG CAP PO SCH (21:54)
[2017-02-27] MEDS: PCA - TOTAL MG MORPHINE DELIVERED PER SHIFT SCH (22:00)
[2017-02-28] VITALS (9 sets, daily range): BP systolic 103–114; BP diastolic 55–62; PULSE 71–84; RESP 16–21; TEMP 97–98.3; O2SAT 95–97
[2017-02-28] MEDS: CHLORHEXIDINE GLUCONATE 2 % 1 PACK (2 CLOTHS) TOP SCH (03:13)
[2017-02-28] MEDS: KETOROLAC TROMETHAMINE 30 MG/ML (IVP) VIAL IVP SCH ×4 (05:09→22:09)
[2017-02-28] MEDS: AZTREONAM INJ 1,000 MG in SODIUM CHLORIDE 0.9% INJ 100 ML IV SCH ×3 (05:09→22:06)
[2017-02-28] MEDS: INSULIN ASPART SUPPLEMENTAL SCALE SQ SCH ×4 (05:16→21:00)
[2017-02-28] MEDS: PCA - TOTAL MG MORPHINE DELIVERED PER SHIFT SCH ×3 (06:00→22:00)
[2017-02-28 08:46] LABS: AUTOMATED NEUTROPHIL # 9.1 TH/MM3 (1.8-7.7); BASOPHIL % 0.2 % (0.0-2.0); EOSINOPHIL % 0.1 % (0.0-4.0); HEMATOCRIT 28.2 % (39.0-51.0); HEMO FLAGS DIFF FINAL; LYMPH % 8.6 % (9.0-44.0); LYMPHOCYTE # 0.9 TH/MM3 (1.0-4.8); MEAN CELL VOLUME 87.7 FL (80.0-100.0); MEAN CORPUSCULAR HGB CONC 34.3 % (32.0-36.0); MONO % 4.2 % (0.0-8.0); NEUT % 86.9 % (16.0-70.0); PLATELET COUNT 174 TH/MM3 (150-450); RED BLOOD COUNT 3.21 MIL/MM3 (4.50-5.90); RED CELL DISTRIBUTION WIDTH 13.5 % (11.6-17.2); WHITE BLOOD COUNT 10.5 TH/MM3 (4.0-11.0)
[2017-02-28] MEDS: SODIUM CHLORIDE 0.9% FLUSH 5 ML FLUSH IVF SCH ×2 (09:00→21:00)
[2017-02-28 09:11] LABS: BICARBONATE 21.8 MEQ/L (21.0-32.0); POTASSIUM 4.7 MEQ/L (3.5-5.1)
[2017-02-28] MEDS: D5-NS + KCL 20 MEQ INJ 1,000 ML IV SCH ×3 (09:45→22:04)
[2017-02-28] MEDS: PANTOPRAZOLE SODIUM 40 MG VIAL IV SCH (09:46)
[2017-02-28] MEDS: FERROUS SULFATE 325 MG (65 MG ELEMENTAL IRON) TAB PO SCH (09:47)
[2017-02-28] MEDS: LOPERAMIDE HCL 2 MG CAP PO SCH ×2 (09:47→22:07)
[2017-02-28] MEDS: VERAPAMIL HCL 240 MG SUSTAINED RELEASE TAB PO SCH (09:47)
--- NOTE | 2017-02-28 10:42 | HHI.PR ---
Subjective Subjective Remarks Resting in bed Color pink, talkative no acute problems Management with MACHINE OPERATOR HOP WORKER pump Surgical procedure on 02-27, see note, wound VAC clean dry and intact Will need home health care for wound care management (Marizol Bejarano) Review of Systems Constitutional Constitutional Remarks 10 point ROS done positives noted other systems negative or unremarkable ( Marizol Bejarano) Pulmonary Respiratory: Coughing (occasional) (Marizol Bejarano) GI/Abdomen GI/Abdominal Exam: Diarrhea (none now, ileostomy has been diverted with reanastomosis) GI/Abdomen Remarks Wound VAC on (Marizol Bejarano) Musculoskeletal MS: Weakness (generalized but mild) (Marizol Bejarano) Neurologic Neurologic Remarks Alert does use pain management (Marizol Bejarano) Psychiatric Psychiatric: Normal Mood, Anxiety (mild at times) (Marizol Bejarano) Vitals/Results Intake & Output 02/27/17 02/27/17 02/28/17 15:00 23:00 07:00 Intake Total 2 ml 3097 ml 1122 ml Output Total 910 ml 200 ml Balance 2 ml 2187 ml 922 ml Intake Oral 0 ml IV Total 2 ml 797 ml 1122 ml Other 2300 ml Output Urine Total 610 ml 200 ml Estimated Blood Loss 300 ml # Voids 1 # Bowel Movements 0 Vital Signs Vital Signs Date Time Temp Pulse Resp B/P Pulse Ox O2 Delivery O2 Flow Rate FiO2 02/28/17 08:29 97 21 02/28/17 08:00 97.0 79 16 106/62 95 02/28/17 06:11 Room Air 02/28/17 06:00 18 02/28/17 04:00 97.9 81 18 114/62 96 02/28/17 01:02 Room Air 02/28/17 00:00 97.9 84 20 113/62 96 02/27/17 22:00 18 02/27/17 22:00 18 02/27/17 21:00 Room Air 02/27/17 20:00 97.1 91 20 125/74 95 02/27/17 17:30 Room Air 02/27/17 17:10 97.5 92 20 129/72 98 Nasal Cannula 2 02/27/17 17:00 92 20 129/72 98 Nasal Cannula 2 02/27/17 16:45 97 20 132/73 99 Nasal Cannula 2 02/27/17 16:30 95 20 136/73 99 Nasal Cannula 2 02/27/17 16:26 20 02/27/17 16:15 104 20 127/70 98 Nasal Cannula 4 02/27/17 16:00 97.6 103 20 136/78 97 02/27/17 15:55 97.5 102 20 125/67 100 Simple Mask 6 02/27/17 12:00 Room Air 02/27/17 12:00 97.6 83 20 121/66 96 (Marizol Bejarano) CBC/BMP: 02/28/17 0822 02/28/17 0822 Lab Results Laboratory Tests Test 02/27/17 02/27/17 02/28/17 11:23 20:07 08:22 Potassium Level 4.2 MEQ/L 4.3 MEQ/L 4.7 MEQ/L White Blood Count 9.8 TH/MM3 10.5 TH/MM3 Red Blood Count 3.53 MIL/MM3 3.21 MIL/MM3 Hemoglobin 10.5 GM/DL 9.7 GM/DL Hematocrit 30.2 % 28.2 % Mean Corpuscular Volume 85.8 FL 87.7 FL Mean Corpuscular Hemoglobin 29.7 PG 30.0 PG Mean Corpuscular Hemoglobin 34.6 % 34.3 % Concent Red Cell Distribution Width 13.4 % 13.5 % Platelet Count 168 TH/MM3 174 TH/MM3 Mean Platelet Volume 8.8 FL 8.6 FL Neutrophils (%) (Auto) 92.7 % 86.9 % Lymphocytes (%) (Auto) 5.5 % 8.6 % Monocytes (%) (Auto) 1.6 % 4.2 % Eosinophils (%) (Auto) 0.1 % 0.1 % Basophils (%) (Auto) 0.1 % 0.2 % Neutrophils # (Auto) 9.0 TH/MM3 9.1 TH/MM3 Lymphocytes # (Auto) 0.5 TH/MM3 0.9 TH/MM3 Monocytes # (Auto) 0.2 TH/MM3 0.4 TH/MM3 Eosinophils # (Auto) 0.0 TH/MM3 0.0 TH/MM3 Basophils # (Auto) 0.0 TH/MM3 0.0 TH/MM3 CBC Comment DIFF FINAL DIFF FINAL Differential Comment Sodium Level 141 MEQ/L 141 MEQ/L Chloride Level 109 MEQ/L 111 MEQ/L Carbon Dioxide Level 23.1 MEQ/L 21.8 MEQ/L Anion Gap 9 MEQ/L 8 MEQ/L Blood Urea Nitrogen 12 MG/DL 14 MG/DL Creatinine 0.95 MG/DL 0.93 MG/DL Estimat Glomerular Filtration 85 ML/MIN 87 ML/MIN Rate Random Glucose 158 MG/DL 121 MG/DL Calcium Level 8.0 MG/DL 7.6 MG/DL Current Medications Administered Medications Medications (Trade) Dose Ordered Sig/Ketty Route PRN Reason Start Time Stop Time Status Last Admin Dose Admin Pantoprazole Sodium (Protonix Inj) 40 mg DAILY IV 02/21/17 09:00 02/28/17 09:46 Chlorhexidine Gluconate Taper DAILY@04 TOP 02/21/17 04:00 02/17/18 03:59 02/21/17 04:00 Aztreonam/Sodium Chloride (Azactam Inj/NS Inj) 100 ml @ 200 mls/hr Q8H IV 02/21/17 05:00 02/28/17 05:09 Ferrous Sulfate (Ferrous Sulfate) 325 mg DAILY PO 02/23/17 09:00 02/28/17 09:47 Terazosin HCl (Hytrin) 5 mg HS PO 02/22/17 21:00 02/27/17 21:54 Pravastatin Sodium (Pravachol) 40 mg HS PO 02/22/17 21:00 02/27/17 21:00 Verapamil HCl (Isoptin Sr) 240 mg DAILY PO 02/23/17 09:00 02/28/17 09:47 Loperamide HCl 2 mg 2 mg BID PO 02/22/17 12:00 02/28/17 09:47 Potassium Chloride/Dextrose/ Sod Cl (D5-NS + KCl 20 Meq Inj) 1,000 ml @ 125 mls/hr Q8H IV 02/27/17 16:00 02/28/17 09:45 Ketorolac Tromethamine (Toradol Inj) 15 mg Q6H IVP 02/27/17 16:00 03/02/17 15:59 02/28/17 09:47 Morphine Sulfate (Morphine 1 Mg/ ml MACHINE OPERATOR HOP WORKER) 30 mg UNSCH IV 5/26/17 16:00 02/27/17 16:26 MACHINE OPERATOR HOP WORKER Dosage Infused (Pha) 1 Q8HR .XX 02/27/17 16:00 02/28/17 06:00 (Marizol Bejarano. SAFE DEPOSIT CLERK) Physical Exam General General Appearance: Well Developed, No Acute Distress, Comfortable, Obese ( Marizol Bejarano M. SAFE DEPOSIT CLERK) Eyes Eye Exam: Pupils Equal, Pupils Reactive (Marizol Bejarano M. SAFE DEPOSIT CLERK) Ears & Nose Ears & Nose Exam: Nasal Mucosa [place] (Marizol Bejarano M. SAFE DEPOSIT CLERK) Throat Throat Exam: Oral Mucosa [place] & Moist (Marizol Bejarano M. SAFE DEPOSIT CLERK) Neck Neck Exam: Neck Supple, Trachea Midline (CarleeMarizol house M. SAFE DEPOSIT CLERK) Pulmonary Resp Exam: Clear Bilaterally, No Distress (Marizol Bejarano M. SAFE DEPOSIT CLERK) Cardiology CV Exam: Regular, Good Perfusion (Marizol Bejarano M. SAFE DEPOSIT CLERK) Gastrointestinal/Abdomen GI Exam: Soft, Bowel Sounds Present, Non-Distended GI Remarks Wound VAC on abdomen wall clean dry and intact (Marizol Bejarano M. SAFE DEPOSIT CLERK) Musculoskeletal MS Exam: Joints Intact (Marizol Bejarano M. SAFE DEPOSIT CLERK) Integumentary Skin Exam: Warm, Dry (Marizol Bejarano M. SAFE DEPOSIT CLERK) Extremeties Extremities Exam: No Edema, Pedal Pulses Palpable (Teresa Bejaranoan M. SAFE DEPOSIT CLERK) Neurologic Neuro Exam: Alert, Awake, Oriented, Speech Clear, Moving All Extremities, No Focal Deficits ([place]resa housean M. SAFE DEPOSIT CLERK) Psychiatric Psych Exam: Appropriate Responses (Marizol Bejarano M. SAFE DEPOSIT CLERK) VTE Prophylaxis VTE Prophylaxis Meds: Lovenox (CarleeTeresaMarizol M. SAFE DEPOSIT CLERK) PUD Prophylasis PUD Prophylaxis: Protonix ([place]resa[place]ol M. SAFE DEPOSIT CLERK) Assessment/Plan Problem List: (1) Syncope (2) Dehydration (3) Cellulitis (4) Severe sepsis (5) Acute kidney injury (6) DM (diabetes mellitus) (7) Hx of diverticulitis of colon (8) s/p laparoscopic lysis of adhesions, left sigmoid colectomy with diverting ileostomy Assessment/Plan 46-year-old male admitted after syncopal episode, found severely dehydrated in acute renal injury, septic, cellulitis of abdominal wall around the ileostomy site from leakage. Patient with history of diverticulitis, status post laparoscopic lysis of adhesions, left sigmoid colectomy with diverting ileostomy Had reanastomosis and wound debridement on 526, currently patient has wound VAC on abdominal wall. Skin around the area is clean dry and intact Postop care per surgery as well as pain management her MACHINE OPERATOR HOP WORKER Continue antibiotic therapy Activity can be increased Type 2 diabetes, blood glucose stable Continue with Accu-Cheks before meals and at bedtime and insulin therapy History hypertension, Vital signs reviewed, patient is afebrile, BP is 106/62. Continue IV hydration and patient can have clear liquids today Labs reviewed, Hypokalemia mild, K was replaced yesterday we'll recheck potassium level this morning before surgery Anemia mild, 9.7 monitor Lovenox for DVT prophylaxis PPI for GI prophylaxis DC planning, after postop care and stabilize, poss home with [facility] next week. Possible Thursday Continue to monitor labs Hypokalemia resolved (Marizol Bejarano) Assessment/Plan Patient seen and examined no pain tolerating CLD continue current care plan of care discussed with patient and Marizol RIVERA (Ninoska Palomares MD) Problem Qualifiers (1) Syncope: Qualified Code: R55 - Syncope, unspecified syncope type (2) Cellulitis: (3) DM (diabetes mellitus): Qualified Code: E11.9 - Type 2 diabetes mellitus without complication, unspecified senior care insulin use status Marizol Bejarano February 28, 2017 10:42 Ninoska Palomares MD February 28, 2017 16:17
[2017-02-28] MEDS: ENOXAPARIN SODIUM 30 MG/0.3 ML SYRINGE SQ SCH (17:10)
[2017-02-28] MEDS: PRAVASTATIN SOD 40 MG TAB PO SCH (21:00)
[2017-02-28] MEDS: TERAZOSIN HCL 5 MG CAP PO SCH (22:06)
[2017-03-01] VITALS (8 sets, daily range): BP systolic 97–119; BP diastolic 53–73; PULSE 72–90; RESP 18–20; TEMP 97.5–98; O2SAT 96–98
[2017-03-01] MEDS: CHLORHEXIDINE GLUCONATE 2 % 1 PACK (2 CLOTHS) TOP SCH (04:00)
[2017-03-01] MEDS: KETOROLAC TROMETHAMINE 30 MG/ML (IVP) VIAL IVP SCH ×4 (04:27→22:03)
[2017-03-01] MEDS: D5-NS + KCL 20 MEQ INJ 1,000 ML IV SCH ×3 (04:28→22:07)
[2017-03-01] MEDS: AZTREONAM INJ 1,000 MG in SODIUM CHLORIDE 0.9% INJ 100 ML IV SCH ×3 (04:29→21:25)
[2017-03-01] MEDS: INSULIN ASPART SUPPLEMENTAL SCALE SQ SCH ×4 (06:00→21:00)
[2017-03-01] MEDS: PCA - TOTAL MG MORPHINE DELIVERED PER SHIFT SCH ×3 (06:00→22:00)
[2017-03-01 07:11] LABS: AUTOMATED NEUTROPHIL # 4.5 TH/MM3 (1.8-7.7); BASOPHIL % 0.4 % (0.0-2.0); EOSINOPHIL # 0.1 TH/MM3 (0-0.4); EOSINOPHIL % 0.7 % (0.0-4.0); HEMO FLAGS DIFF FINAL; LYMPH % 25.8 % (9.0-44.0); LYMPHOCYTE # 1.7 TH/MM3 (1.0-4.8); MEAN CELL VOLUME 89.6 FL (80.0-100.0); MEAN CORPUSCULAR HEMOGLOBIN 30.1 PG (27.0-34.0); MEAN CORPUSCULAR HGB CONC 33.6 % (32.0-36.0); MONO % 5.9 % (0.0-8.0); NEUT % 67.2 % (16.0-70.0); PLATELET COUNT 138 TH/MM3 (150-450); RED BLOOD COUNT 3.02 MIL/MM3 (4.50-5.90); RED CELL DISTRIBUTION WIDTH 13.9 % (11.6-17.2); WHITE BLOOD COUNT 6.7 TH/MM3 (4.0-11.0)
[2017-03-01 07:38] LABS: BICARBONATE 22.3 MEQ/L (21.0-32.0); POTASSIUM 3.9 MEQ/L (3.5-5.1)
[2017-03-01 08:11] LABS: CALCIUM-PROTEIN CORRECTED 8.3 MG/DL (8.5-10.1)
[2017-03-01] MEDS: FERROUS SULFATE 325 MG (65 MG ELEMENTAL IRON) TAB PO SCH (08:31)
[2017-03-01] MEDS: VERAPAMIL HCL 240 MG SUSTAINED RELEASE TAB PO SCH (08:31)
[2017-03-01] MEDS: LOPERAMIDE HCL 2 MG CAP PO SCH ×2 (08:31→21:25)
[2017-03-01] MEDS: PANTOPRAZOLE SODIUM 40 MG VIAL IV SCH (08:31)
[2017-03-01] MEDS: SODIUM CHLORIDE 0.9% FLUSH 5 ML FLUSH IVF SCH ×2 (08:31→21:00)
--- NOTE | 2017-03-01 14:01 | HHI.PR ---
Subjective Subjective Remarks passing gas no fever tolerating full liquid diet well, no n/v pain well managed ambulating okay no cp no sob Review of Systems Constitutional Constitutional Remarks 12 point review of systems completed, negative except as noted above Pulmonary Respiratory: Coughing (occasional) GI/Abdomen GI/Abdominal Exam: Diarrhea (none now, ileostomy has been diverted with reanastomosis) Musculoskeletal MS: Weakness (generalized but mild) Psychiatric Psychiatric: Normal Mood, Anxiety (mild at times) Vitals/Results Intake & Output 02/28/17 02/28/17 03/01/17 15:00 23:00 07:00 Intake Total 360 ml 1277 ml Output Total 400 ml 100 ml 250 ml Balance -40 ml 1177 ml -250 ml Intake Oral 360 ml 240 ml IV Total 1037 ml Output Urine Total 400 ml 100 ml 250 ml # Bowel Movements 1 Vital Signs Vital Signs Date Time Temp Pulse Resp B/P Pulse Ox O2 Delivery O2 Flow Rate FiO2 03/01/17 12:36 98 Room Air 03/01/17 12:05 97.7 90 18 109/56 96 03/01/17 12:00 97 03/01/17 11:11 18 03/01/17 08:34 97.6 78 18 119/66 98 03/01/17 06:00 21 03/01/17 04:00 97.5 72 18 115/73 98 03/01/17 00:00 97.8 73 18 97/53 97 02/28/17 22:00 22 02/28/17 21:20 21 02/28/17 20:00 98.3 71 18 110/62 97 02/28/17 16:00 97.3 76 18 103/55 95 02/28/17 15:00 95 Room Air 02/28/17 14:58 20 CBC/BMP: 03/01/17 0632 03/01/17 0632 Lab Results Laboratory Tests Test 03/01/17 06:32 White Blood Count 6.7 TH/MM3 Red Blood Count 3.02 MIL/MM3 Hemoglobin 9.1 GM/DL Hematocrit 27.0 % Mean Corpuscular Volume 89.6 FL Mean Corpuscular Hemoglobin 30.1 PG Mean Corpuscular Hemoglobin 33.6 % Concent Red Cell Distribution Width 13.9 % Platelet Count 138 TH/MM3 Mean Platelet Volume 8.7 FL Neutrophils (%) (Auto) 67.2 % Lymphocytes (%) (Auto) 25.8 % Monocytes (%) (Auto) 5.9 % Eosinophils (%) (Auto) 0.7 % Basophils (%) (Auto) 0.4 % Neutrophils # (Auto) 4.5 TH/MM3 Lymphocytes # (Auto) 1.7 TH/MM3 Monocytes # (Auto) 0.4 TH/MM3 Eosinophils # (Auto) 0.1 TH/MM3 Basophils # (Auto) 0.0 TH/MM3 CBC Comment DIFF FINAL Differential Comment Sodium Level 143 MEQ/L Potassium Level 3.9 MEQ/L Chloride Level 114 MEQ/L Carbon Dioxide Level 22.3 MEQ/L Anion Gap 7 MEQ/L Blood Urea Nitrogen 10 MG/DL Creatinine 0.71 MG/DL Estimat Glomerular Filtration 119 ML/MIN Rate Random Glucose 91 MG/DL Calcium Level 7.3 MG/DL Protein Corrected Calcium 8.3 MG/DL Total Protein 5.2 GM/DL Physical Exam General General Appearance: Well Developed, No Acute Distress, Comfortable, Obese Eyes Eye Exam: Pupils Equal, Pupils Reactive Ears & Nose Ears & Nose Exam: Nasal Mucosa [place] Throat Throat Exam: Oral Mucosa [place] & Moist Neck Neck Exam: Neck Supple, Trachea Midline Pulmonary Resp Exam: Clear Bilaterally, No Distress Cardiology CV Exam: Regular, Good Perfusion Gastrointestinal/Abdomen GI Exam: Soft, Bowel Sounds Present, Non-Distended GI Remarks wound vac to abdomen noted Musculoskeletal MS Exam: Joints Intact Integumentary Skin Exam: Warm, Dry Extremeties Extremities Exam: No Edema, Pedal Pulses Palpable Neurologic Neuro Exam: Alert, Awake, Oriented, Speech Clear, Moving All Extremities, No Focal Deficits Psychiatric Psych Exam: Appropriate Responses VTE Prophylaxis VTE Prophylaxis Meds: Lovenox PUD Prophylasis PUD Prophylaxis: Protonix Assessment/Plan Problem List: (1) Syncope (2) Dehydration (3) Cellulitis (4) Severe sepsis (5) Acute kidney injury (6) DM (diabetes mellitus) (7) Hx of diverticulitis of colon (8) s/p laparoscopic lysis of adhesions, left sigmoid colectomy with diverting ileostomy Assessment/Plan 46-year-old male admitted after syncopal episode, found severely dehydrated in acute renal injury, septic, cellulitis of abdominal wall around the ileostomy site from leakage. Patient with history of diverticulitis, status post laparoscopic lysis of adhesions, left sigmoid colectomy with diverting ileostomy -Patient has been transferred out of ICU, hemodynamically stable. -BP stable Continue to hold antihypertensive agents -renal function back to normal -enc. po intake Sepsis, with cellulitis of abdominal wall Continue with Azactam Lactic acid back to normal stools for C. difficile -negative -Dr. Llanos evaluated, input appreciated. -GE results noted, no obstruction, no leaking -S/P ileostomy reanastomosis with wound debridement 02/27 -continue post op care -adv. to full liquid, tolerating well -palacios has been dc'd Type 2 diabetes, blood glucose stable Continue with Accu-Cheks before meals and at bedtime and insulin therapy History hypertension, was hypotensive Continue to hold antihypertensive agents, blood pressure is stable. OOB Lovenox for DVT prophylaxis PPI for GI prophylaxis Labs reviewed stable, some anemia noted. Poss home Thursday Discussed with Discussed with RN Discussed with patient This patient was seen by myself and Dr. Palomares, this note is written his behalf Problem Qualifiers (1) Syncope: Qualified Code: R55 - Syncope, unspecified syncope type (2) Cellulitis: (3) DM (diabetes mellitus): Qualified Code: E11.9 - Type 2 diabetes mellitus without complication, unspecified ad terminal makeup operator insulin use status Lily Flores March 01, 2017 14:01
[2017-03-01] MEDS: ENOXAPARIN SODIUM 30 MG/0.3 ML SYRINGE SQ SCH (17:09)
[2017-03-01] MEDS: PRAVASTATIN SOD 40 MG TAB PO SCH (21:00)
[2017-03-01] MEDS: TERAZOSIN HCL 5 MG CAP PO SCH (21:26)
[2017-03-02] VITALS (7 sets, daily range): BP systolic 112–147; BP diastolic 58–87; PULSE 70–92; RESP 18–20; TEMP 98–98.3; O2SAT 94–98
[2017-03-02] MEDS: MORPHINE SULFATE 30 MG/30 ML PCA IV SCH ×2 (00:46→23:40)
[2017-03-02] MEDS: CHLORHEXIDINE GLUCONATE 2 % 1 PACK (2 CLOTHS) TOP SCH (03:19)
[2017-03-02] MEDS: KETOROLAC TROMETHAMINE 30 MG/ML (IVP) VIAL IVP SCH ×2 (04:00→09:25)
[2017-03-02] MEDS: AZTREONAM INJ 1,000 MG in SODIUM CHLORIDE 0.9% INJ 100 ML IV SCH ×3 (04:01→20:17)
[2017-03-02] MEDS: PCA - TOTAL MG MORPHINE DELIVERED PER SHIFT SCH ×3 (06:00→22:00)
[2017-03-02] MEDS: INSULIN ASPART SUPPLEMENTAL SCALE SQ SCH ×4 (06:13→20:15)
[2017-03-02 08:18] LABS: AUTOMATED NEUTROPHIL # 3.8 TH/MM3 (1.8-7.7); BASOPHIL % 0.5 % (0.0-2.0); EOSINOPHIL # 0.1 TH/MM3 (0-0.4); EOSINOPHIL % 1.3 % (0.0-4.0); HEMO FLAGS DIFF FINAL; LYMPH % 25.2 % (9.0-44.0); LYMPHOCYTE # 1.4 TH/MM3 (1.0-4.8); MEAN CELL VOLUME 88.9 FL (80.0-100.0); MEAN CORPUSCULAR HEMOGLOBIN 29.3 PG (27.0-34.0); MONO % 6.5 % (0.0-8.0); NEUT % 66.5 % (16.0-70.0); PLATELET COUNT 138 TH/MM3 (150-450); RED BLOOD COUNT 3.15 MIL/MM3 (4.50-5.90); RED CELL DISTRIBUTION WIDTH 14.1 % (11.6-17.2); WHITE BLOOD COUNT 5.6 TH/MM3 (4.0-11.0)
[2017-03-02 08:52] LABS: BICARBONATE 23.6 MEQ/L (21.0-32.0); POTASSIUM 3.6 MEQ/L (3.5-5.1)
[2017-03-02] MEDS: SODIUM CHLORIDE 0.9% FLUSH 5 ML FLUSH IVF SCH ×2 (09:00→20:17)
[2017-03-02 09:21] LABS: CALCIUM-PROTEIN CORRECTED 8.5 MG/DL (8.5-10.1)
[2017-03-02] MEDS: LOPERAMIDE HCL 2 MG CAP PO SCH ×2 (09:22→20:16)
[2017-03-02] MEDS: PANTOPRAZOLE SODIUM 40 MG VIAL IV SCH (09:22)
[2017-03-02] MEDS: VERAPAMIL HCL 240 MG SUSTAINED RELEASE TAB PO SCH (09:22)
[2017-03-02] MEDS: FERROUS SULFATE 325 MG (65 MG ELEMENTAL IRON) TAB PO SCH (09:23)
[2017-03-02] MEDS: D5-NS + KCL 20 MEQ INJ 1,000 ML IV SCH ×2 (09:24→20:18)
--- NOTE | 2017-03-02 13:08 | HHI.PR ---
Subjective Subjective Remarks had small loose bm last night abd. pain well controlled on R[employer]IVER no fever no cp no sob ambulating well Review of Systems Constitutional Constitutional Remarks 12 point review of systems completed, negative except as noted above Pulmonary Respiratory: Coughing (occasional) GI/Abdomen GI/Abdominal Exam: Diarrhea (none now, ileostomy has been diverted with reanastomosis) Musculoskeletal MS: Weakness (generalized but mild) Psychiatric Psychiatric: Normal Mood, Anxiety (mild at times) Vitals/Results Intake & Output 03/01/17 03/01/17 03/02/17 15:00 23:00 07:00 Intake Total 3085 ml 850 ml Output Total 1100 ml Balance 3085 ml -250 ml IV Total 3085 ml 850 ml Output Urine Total 1100 ml # Voids 1 Vital Signs Vital Signs Date Time Temp Pulse Resp B/P Pulse Ox O2 Delivery O2 Flow Rate FiO2 03/02/17 12:00 98.1 92 18 134/77 97 03/02/17 08:27 98 21 03/02/17 08:00 98.0 92 18 147/87 94 03/02/17 06:00 14 03/02/17 05:37 98.1 88 20 145/80 97 03/02/17 00:43 98.0 76 20 121/70 96 03/01/17 22:00 12 03/01/17 20:58 98.0 81 20 118/58 97 03/01/17 20:15 Room Air 03/01/17 18:49 18 03/01/17 16:30 97.7 80 18 109/57 97 03/01/17 14:16 20 03/01/17 14:16 20 CBC/BMP: 03/02/17 0800 03/02/17 0800 Lab Results Laboratory Tests Test 03/02/17 08:00 White Blood Count 5.6 TH/MM3 Red Blood Count 3.15 MIL/MM3 Hemoglobin 9.2 GM/DL Hematocrit 28.0 % Mean Corpuscular Volume 88.9 FL Mean Corpuscular Hemoglobin 29.3 PG Mean Corpuscular Hemoglobin 33.0 % Concent Red Cell Distribution Width 14.1 % Platelet Count 138 TH/MM3 Mean Platelet Volume 8.7 FL Neutrophils (%) (Auto) 66.5 % Lymphocytes (%) (Auto) 25.2 % Monocytes (%) (Auto) 6.5 % Eosinophils (%) (Auto) 1.3 % Basophils (%) (Auto) 0.5 % Neutrophils # (Auto) 3.8 TH/MM3 Lymphocytes # (Auto) 1.4 TH/MM3 Monocytes # (Auto) 0.4 TH/MM3 Eosinophils # (Auto) 0.1 TH/MM3 Basophils # (Auto) 0.0 TH/MM3 CBC Comment DIFF FINAL Differential Comment Sodium Level 145 MEQ/L Potassium Level 3.6 MEQ/L Chloride Level 113 MEQ/L Carbon Dioxide Level 23.6 MEQ/L Anion Gap 8 MEQ/L Blood Urea Nitrogen 6 MG/DL Creatinine 0.69 MG/DL Estimat Glomerular Filtration 123 ML/MIN Rate Random Glucose 110 MG/DL Calcium Level 7.4 MG/DL Protein Corrected Calcium 8.5 MG/DL Total Protein 5.2 GM/DL Physical Exam General General Appearance: Well Developed, No Acute Distress, Comfortable, Obese Eyes Eye Exam: Pupils Equal, Pupils Reactive Ears & Nose Ears & Nose Exam: Nasal Mucosa [place] Throat Throat Exam: Oral Mucosa [place] & Moist Neck Neck Exam: Neck Supple, Trachea Midline Pulmonary Resp Exam: Clear Bilaterally, No Distress Cardiology CV Exam: Regular, Good Perfusion Gastrointestinal/Abdomen GI Exam: Soft, Bowel Sounds Present, Non-Distended GI Remarks wound vac to abdomen noted Musculoskeletal MS Exam: Joints Intact Integumentary Skin Exam: Warm, Dry Extremeties Extremities Exam: No Edema, Pedal Pulses Palpable Neurologic Neuro Exam: Alert, Awake, Oriented, Speech Clear, Moving All Extremities, No Focal Deficits Psychiatric Psych Exam: Appropriate Responses VTE Prophylaxis VTE Prophylaxis Meds: Lovenox PUD Prophylasis PUD Prophylaxis: Protonix Assessment/Plan Problem List: (1) Syncope (2) Dehydration (3) Cellulitis (4) Severe sepsis (5) Acute kidney injury (6) DM (diabetes mellitus) (7) Hx of diverticulitis of colon (8) s/p laparoscopic lysis of adhesions, left sigmoid colectomy with diverting ileostomy Assessment/Plan 46-year-old male admitted after syncopal episode, found severely dehydrated in acute renal injury, septic, cellulitis of abdominal wall around the ileostomy site from leakage. Patient with history of diverticulitis, status post laparoscopic lysis of adhesions, left sigmoid colectomy with diverting ileostomy -Patient has been transferred out of ICU, hemodynamically stable. -BP stable Continue to hold antihypertensive agents -renal function back to normal -enc. po intake Sepsis, with cellulitis of abdominal wall Continue with Azactam Lactic acid back to normal stools for C. difficile -negative -Dr. Llanos evaluated, input appreciated. -GE results noted, no obstruction, no leaking -S/P ileostomy reanastomosis with wound debridement 02/27 -continue post op care -had BM doing well, pain well controlled -wound vac to be changed today -adv to regular diet, will change to 1800 ADA Type 2 diabetes, blood glucose stable Continue with Accu-Cheks before meals and at bedtime and insulin therapy History hypertension, was hypotensive Continue to hold antihypertensive agents, blood pressure is stable. OOB daily Lovenox for DVT prophylaxis PPI for GI prophylaxis Labs reviewed stable, some anemia noted. Progressing well, poss. home tomorrow Discussed with Discussed with RN Discussed with patient This patient was seen by myself and Dr. Palomares, this note is written his behalf Problem Qualifiers (1) Syncope: Qualified Code: R55 - Syncope, unspecified syncope type (2) Cellulitis: (3) DM (diabetes mellitus): Qualified Code: E11.9 - Type 2 diabetes mellitus without complication, unspecified fdc insulin use status Lily Flores March 02, 2017 13:08
[2017-03-02] MEDS: ENOXAPARIN SODIUM 30 MG/0.3 ML SYRINGE SQ SCH (17:26)
[2017-03-02] MEDS: PRAVASTATIN SOD 40 MG TAB PO SCH (20:16)
[2017-03-02] MEDS: TERAZOSIN HCL 5 MG CAP PO SCH (20:16)
[2017-03-03] VITALS: BP 132/79; PULSE 99; RESP 18; TEMP 98; O2SAT 94
[2017-03-03 04:00] VITALS: BP 135/83; PULSE 88; RESP 18; TEMP 98.1; O2SAT 96
[2017-03-03] MEDS: CHLORHEXIDINE GLUCONATE 2 % 1 PACK (2 CLOTHS) TOP SCH (04:00)
[2017-03-03] MEDS: AZTREONAM INJ 1,000 MG in SODIUM CHLORIDE 0.9% INJ 100 ML IV SCH ×3 (05:15→21:26)
[2017-03-03] MEDS: D5-NS + KCL 20 MEQ INJ 1,000 ML IV SCH ×2 (05:17→08:16)
[2017-03-03] MEDS: PCA - TOTAL MG MORPHINE DELIVERED PER SHIFT SCH ×2 (06:00→14:00)
[2017-03-03] MEDS: INSULIN ASPART SUPPLEMENTAL SCALE SQ SCH ×4 (07:00→21:00)
[2017-03-03 08:00] VITALS: BP 154/88; PULSE 95; RESP 16; TEMP 98.1; O2SAT 94
[2017-03-03] MEDS: FERROUS SULFATE 325 MG (65 MG ELEMENTAL IRON) TAB PO SCH (08:12)
[2017-03-03] MEDS: LOPERAMIDE HCL 2 MG CAP PO SCH ×2 (08:12→21:26)
[2017-03-03] MEDS: PANTOPRAZOLE SODIUM 40 MG VIAL IV SCH (08:12)
[2017-03-03] MEDS: SODIUM CHLORIDE 0.9% FLUSH 5 ML FLUSH IVF SCH ×2 (08:12→21:00)
[2017-03-03] MEDS: VERAPAMIL HCL 240 MG SUSTAINED RELEASE TAB PO SCH (08:12)
--- NOTE | 2017-03-03 08:26 | HHI.PR ---
Subjective Remarks POD#4 s/p ileostomy closure, wound debridement comfortable, some nausea Objective Vital Signs Date Time Temp Pulse Resp B/P Pulse Ox O2 Delivery O2 Flow Rate FiO2 03/03/17 06:00 14 03/03/17 04:00 98.1 88 18 135/83 96 03/03/17 00:00 98.0 99 18 132/79 94 03/02/17 23:40 14 03/02/17 22:00 14 03/02/17 20:00 98.1 86 18 136/77 97 03/02/17 19:45 Room Air 03/02/17 19:44 21 03/02/17 16:00 98.3 84 18 112/68 97 03/02/17 14:00 18 03/02/17 12:00 98.1 92 18 134/77 97 03/02/17 08:27 98 21 I/O 03/02/17 03/02/17 03/02/17 03/03/17 03/03/17 03/03/17 07:00 15:00 23:00 07:00 15:00 23:00 Intake Total 850 ml 480 ml 1300 ml 1040 ml Output Total 1100 ml 1500 ml 400 ml 300 ml Balance -250 ml -1020 ml 900 ml 740 ml Intake Oral 480 ml 240 ml IV Total 850 ml 1300 ml 800 ml Output Urine Total 1100 ml 1500 ml 400 ml 300 ml # Voids 1 # Bowel Movements 2 0 1 Result Diagram: 03/02/17 0800 03/02/17 0800 Objective Remarks wound clean with vacuum dressing Assessment and Plan Assessment and Plan Check electrolytes MOBILIZE Case management for C with Vacuum dressing Riddhi Llanos MD March 03, 2017 08:26
[2017-03-03 10:44] LABS: BICARBONATE 23.1 MEQ/L (21.0-32.0); POTASSIUM 3.5 MEQ/L (3.5-5.1)
--- NOTE | 2017-03-03 11:19 | HHI.PR ---
Subjective Subjective Remarks having small loose bms abd pain with movement no fever no cp no sob some nausea last night, better today, appetite fair. Review of Systems Constitutional Constitutional Remarks 12 point review of systems completed, negative except as noted above Vitals/Results Intake & Output 03/02/17 03/02/17 03/03/17 14:59 22:59 06:59 Intake Total 480 ml 1300 ml 1040 ml Output Total 1500 ml 400 ml 300 ml Balance -1020 ml 900 ml 740 ml Intake Oral 480 ml 240 ml IV Total 1300 ml 800 ml Output Urine Total 1500 ml 400 ml 300 ml # Bowel Movements 2 0 1 Vital Signs Vital Signs Date Time Temp Pulse Resp B/P Pulse Ox O2 Delivery O2 Flow Rate FiO2 03/03/17 08:54 Room Air 21 03/03/17 08:00 98.1 95 16 154/88 94 03/03/17 06:00 14 03/03/17 04:00 98.1 88 18 135/83 96 03/03/17 00:00 98.0 99 18 132/79 94 03/02/17 23:40 14 03/02/17 22:00 14 03/02/17 20:00 98.1 86 18 136/77 97 03/02/17 19:45 Room Air 03/02/17 19:44 21 03/02/17 16:00 98.3 84 18 112/68 97 03/02/17 14:00 18 03/02/17 12:00 98.1 92 18 134/77 97 CBC/BMP: 03/02/17 0800 03/03/17 0943 Lab Results Laboratory Tests Test 03/03/17 09:43 Sodium Level 143 MEQ/L Potassium Level 3.5 MEQ/L Chloride Level 109 MEQ/L Carbon Dioxide Level 23.1 MEQ/L Anion Gap 11 MEQ/L Blood Urea Nitrogen 6 MG/DL Creatinine 0.70 MG/DL Estimat Glomerular Filtration 121 ML/MIN Rate Random Glucose 122 MG/DL Calcium Level 7.7 MG/DL Physical Exam General General Appearance: Well Developed, No Acute Distress, Comfortable, Obese Eyes Eye Exam: Pupils Equal, Pupils Reactive Ears & Nose Ears & Nose Exam: Nasal Mucosa [place] Throat Throat Exam: Oral Mucosa [place] & Moist Neck Neck Exam: Neck Supple, Trachea Midline Pulmonary Resp Exam: Clear Bilaterally, No Distress Cardiology CV Exam: Regular, Good Perfusion Gastrointestinal/Abdomen GI Exam: Soft, Bowel Sounds Present, Non-Distended GI Remarks wound vac to abdomen noted Musculoskeletal MS Exam: Joints Intact Integumentary Skin Exam: Warm, Dry Extremeties Extremities Exam: No Edema, Pedal Pulses Palpable Neurologic Neuro Exam: Alert, Awake, Oriented, Speech Clear, Moving All Extremities, No Focal Deficits Psychiatric Psych Exam: Appropriate Responses VTE Prophylaxis VTE Prophylaxis Meds: Lovenox PUD Prophylasis PUD Prophylaxis: Protonix Assessment/Plan Problem List: (1) Syncope (2) Dehydration (3) Cellulitis (4) Severe sepsis (5) Acute kidney injury (6) DM (diabetes mellitus) (7) Hx of diverticulitis of colon (8) s/p laparoscopic lysis of adhesions, left sigmoid colectomy with diverting ileostomy Assessment/Plan 46-year-old male admitted after syncopal episode, found severely dehydrated in acute renal injury, septic, cellulitis of abdominal wall around the ileostomy site from leakage. Patient with history of diverticulitis, status post laparoscopic lysis of adhesions, left sigmoid colectomy with diverting ileostomy -Patient has been transferred out of ICU, hemodynamically stable. -BP stable Continue to hold antihypertensive agents -renal function back to normal -enc. po intake Sepsis, with cellulitis of abdominal wall Continue with Azactam Lactic acid back to normal stools for C. difficile -negative -Dr. Llanos evaluated, input appreciated. -GE results noted, no obstruction, no leaking -S/P ileostomy reanastomosis with wound debridement 02/27 -continue post op care -had BM doing well, pain well controlled -wound vac -will need at dc -[id number] ADA -doing well, per surgery, pt. needs wound vac for dc. Consulted CM for dc planning Type 2 diabetes, blood glucose stable Continue with Accu-Cheks before meals and at bedtime and insulin therapy History hypertension, was hypotensive Continue to hold antihypertensive agents, blood pressure is stable. OOB daily Lovenox for DVT prophylaxis PPI for GI prophylaxis CM for dc planning, poss. home tomorrow once clear by surgery Discussed with Discussed with RN Discussed with patient This patient was seen by myself and Dr. 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
[2017-03-03] MEDS ORDERED: POTASSIUM CHLORIDE 25 MEQ EFFERVESCENT TAB PO ONE (11:30)
[2017-03-03 12:00] VITALS: BP 154/82; PULSE 94; RESP 16; TEMP 98.8; O2SAT 94
[2017-03-03] MEDS: ENOXAPARIN SODIUM 30 MG/0.3 ML SYRINGE SQ SCH (15:08)
[2017-03-03 16:00] VITALS: BP 127/59; PULSE 85; RESP 16; TEMP 98.7; O2SAT 96
[2017-03-03 20:00] VITALS: BP 139/79; PULSE 84; RESP 18; TEMP 97.9; O2SAT 96
[2017-03-03] MEDS: TERAZOSIN HCL 5 MG CAP PO SCH (21:26)
[2017-03-03] MEDS: PRAVASTATIN SOD 40 MG TAB PO SCH (21:26)
[2017-03-04] VITALS: BP 135/71; PULSE 83; RESP 18; TEMP 98.1; O2SAT 96
[2017-03-04] MEDS: MORPHINE SULFATE 30 MG/30 ML PCA IV SCH (01:15)
[2017-03-04] MEDS: D5-NS + KCL 20 MEQ INJ 1,000 ML IV SCH ×2 (01:19→08:32)
[2017-03-04] MEDS: CHLORHEXIDINE GLUCONATE 2 % 1 PACK (2 CLOTHS) TOP SCH (04:00)
[2017-03-04] MEDS: AZTREONAM INJ 1,000 MG in SODIUM CHLORIDE 0.9% INJ 100 ML IV SCH ×2 (05:42→16:29)
[2017-03-04] MEDS: PCA - TOTAL MG MORPHINE DELIVERED PER SHIFT SCH ×2 (06:00→14:00)
[2017-03-04 06:06] VITALS: BP 136/71; PULSE 78; RESP 18; TEMP 98.7; O2SAT 95
[2017-03-04] MEDS: INSULIN ASPART SUPPLEMENTAL SCALE SQ SCH ×3 (06:21→16:34)
[2017-03-04 08:00] VITALS: BP 138/65; PULSE 86; RESP 18; TEMP 98.1; O2SAT 96
--- NOTE | 2017-03-04 08:26 | HHI.PR ---
Subjective Remarks POD#5 s/p ileostomy closure, wound debridement comfortable Objective Vital Signs Date Time Temp Pulse Resp B/P Pulse Ox O2 Delivery O2 Flow Rate FiO2 03/04/17 06:06 98.7 78 18 136/71 95 03/04/17 06:00 14 03/04/17 00:00 98.1 83 18 135/71 96 03/03/17 20:00 97.9 84 18 139/79 96 03/03/17 19:45 Room Air 03/03/17 16:00 98.7 85 16 127/59 96 03/03/17 12:59 Room Air 21 03/03/17 12:00 98.8 94 16 154/82 94 03/03/17 08:54 Room Air 21 I/O 03/03/17 03/03/17 03/03/17 03/04/17 03/04/17 03/04/17 07:00 15:00 23:00 07:00 15:00 23:00 Intake Total 1040 ml 360 ml 800 ml 800 ml Output Total 300 ml 375 ml 400 ml 400 ml Balance 740 ml -15 ml 400 ml 400 ml Intake Oral 240 ml 360 ml IV Total 800 ml 800 ml 800 ml Output Urine Total 300 ml 375 ml 400 ml 400 ml # Bowel Movements 1 0 1 1 Result Diagram: 03/02/17 0800 03/03/17 0943 Objective Remarks wound clean with vacuum dressing Assessment and Plan Assessment and Plan Doing well Home once [facility] confirmed Riddhi Llanos MD March 04, 2017 08:26
[2017-03-04] MEDS ORDERED: HYDR-3516 PO (08:27)
[2017-03-04] MEDS: SODIUM CHLORIDE 0.9% FLUSH 5 ML FLUSH IVF SCH (08:32)
[2017-03-04] MEDS: PANTOPRAZOLE SODIUM 40 MG VIAL IV SCH (08:32)
[2017-03-04] MEDS: LOPERAMIDE HCL 2 MG CAP PO SCH (08:32)
[2017-03-04] MEDS: FERROUS SULFATE 325 MG (65 MG ELEMENTAL IRON) TAB PO SCH (08:32)
[2017-03-04] MEDS: VERAPAMIL HCL 240 MG SUSTAINED RELEASE TAB PO SCH (08:32)
--- NOTE | 2017-03-04 09:52 | HHI.PR ---
Subjective Subjective Remarks Resting in bed, alert cooperative Color pink, talkative no acute problems Afebrile Wound VAC dressing clean dry and intact (Marizol Bejarano) Review of Systems Constitutional Constitutional Remarks 10 point ROS done positives noted other systems negative or unremarkable ( Marizol Bejarano) GI/Abdomen GI/Abdomen Remarks Wound VAC on, loose stool 1 last month that beginning to firm up some (Marizol Bejarano) Neurologic Neurologic Remarks Alert does use pain management (Marizol Bejarano) Vitals/Results Intake & Output 03/03/17 03/03/17 03/04/17 15:00 23:00 07:00 Intake Total 360 ml 800 ml 800 ml Output Total 375 ml 400 ml 400 ml Balance -15 ml 400 ml 400 ml Intake Oral 360 ml IV Total 800 ml 800 ml Output Urine Total 375 ml 400 ml 400 ml # Bowel Movements 0 1 1 Vital Signs Vital Signs Date Time Temp Pulse Resp B/P Pulse Ox O2 Delivery O2 Flow Rate FiO2 03/04/17 06:06 98.7 78 18 136/71 95 03/04/17 06:00 14 03/04/17 00:00 98.1 83 18 135/71 96 03/03/17 20:00 97.9 84 18 139/79 96 03/03/17 19:45 Room Air 03/03/17 16:00 98.7 85 16 127/59 96 03/03/17 12:59 Room Air 21 03/03/17 12:00 98.8 94 16 154/82 94 (Marizol Bejarano) CBC/BMP: 03/02/17 0800 03/03/17 0943 Current Medications Last Impressions Enema w/Water Soluble 02/23/17 0000 Signed Impressions: Service Date/Time: Thursday, February 23, 2017 09:51 - CONCLUSION: Mild to moderate diverticulosis with no evidence of obstruction or leakage. Jackson Herrera MD Abdomen/Pelvis CT 02/20/17 1729 Signed Impressions: Service Date/Time: Monday, February 20, 2017 17:42 - CONCLUSION: 1. Ventral hernia/ostomy as above with decreased size of the fluid and air collection within the anterior abdominal wall and resolved collection that was previously seen within the adjacent peritoneal space. 2. No acute abnormality demonstrated. Hyperdense cysts of both kidneys and nonobstructing stones of the left kidney are again noted. Rodriguez Mack MD Chest X-Ray 02/20/17 1612 Signed Impressions: Service Date/Time: Monday, February 20, 2017 16:41 - CONCLUSION: 1. No acute cardiopulmonary disease. Mic Fraire MD (Cedar,Marizol M. MAMMALOGIST) Physical Exam General General Appearance: Well Developed, No Acute Distress, Comfortable, Obese ( Cedar,Marizol M. MAMMALOGIST) Eyes Eye Exam: Pupils Equal, Pupils Reactive (Cedar,Marizol M. MAMMALOGIST) Ears & Nose Ears & Nose Exam: Nasal Mucosa [place] (Cedar,Marizol M. MAMMALOGIST) Throat Throat Exam: Oral Mucosa [place] & Moist (Carlee,Marizol M. MAMMALOGIST) Neck Neck Exam: Neck Supple, Trachea Midline (Cedar,Marizol M. MAMMALOGIST) Pulmonary Resp Exam: Clear Bilaterally, No Distress (Carlee,Marizol M. MAMMALOGIST) Cardiology CV Exam: Regular, Good Perfusion (Cedar,Marizol M. MAMMALOGIST) Gastrointestinal/Abdomen GI Exam: Soft, Bowel Sounds Present, Non-Distended GI Remarks Wound VAC on abdomen wall clean dry and intact (Carlee,Marizol M. MAMMALOGIST) Musculoskeletal MS Exam: Joints Intact (Cedar,Marizol M. MAMMALOGIST) Integumentary Skin Exam: Warm, Dry (Carlee,Marizol M. MAMMALOGIST) Extremeties Extremities Exam: No Edema, Pedal Pulses Palpable (Cedar,Marizol M. MAMMALOGIST) Neurologic Neuro Exam: Alert, Awake, Oriented, Speech Clear, Moving All Extremities, No Focal Deficits (Carlee,Marizol M. MAMMALOGIST) Psychiatric Psych Exam: Appropriate Responses (Carlee,Marizol M. MAMMALOGIST) VTE Prophylaxis VTE Prophylaxis Meds: Lovenox (Cedar,Marizol M. MAMMALOGIST) PUD Prophylasis PUD Prophylaxis: Protonix (Cedar,Marizol M. MAMMALOGIST) Assessment/Plan Problem List: (1) Syncope (2) Dehydration (3) Cellulitis (4) Severe sepsis (5) Acute kidney injury (6) DM (diabetes mellitus) (7) Hx of diverticulitis of colon (8) s/p laparoscopic lysis of adhesions, left sigmoid colectomy with diverting ileostomy Assessment/Plan Vital signs reviewed, normal ranges, afebrile Continue to hold antihypertensive agents Labs reviewed, K7.7 today -enc. po intake Sepsis, with cellulitis of abdominal wall Continue with Azactam -Dr. Llanos evaluated, input appreciated. -GE results noted, no obstruction, no leaking -S/P ileostomy reanastomosis with wound debridement 02/27 -continue post op care -had BM doing well, pain well controlled on IV meds but needs to transition to by mouth -[id number] ADA -doing well, per surgery, pt. needs wound vac for dc. Consulted CM for dc planning , wound VAC dressing dry and intact Type 2 diabetes, blood glucose stable Continue with Accu-Cheks before meals and at bedtime and insulin therapy OOB daily, encourage patient to be safe Lovenox for DVT prophylaxis PPI for GI prophylaxis CM for dc planning, should go home today with home health care and wound VAC. 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
--- NOTE | 2017-03-04 10:08 | HHI.FF ---
Face to Face Verification Diagnosis: (1) Diverticulitis (2) Perforated diverticulum of large intestine (3) s/p laparoscopic lysis of adhesions, left sigmoid colectomy with diverting ileostomy Home Health Nursing Order: Wound care and dressing changes I have seen patient Jevon Loving on 03/04/17. My clinical findings support the need for the requested home health care services because: limited mobility secondary to obesity, chronic wound infection requiring Vacuum dressing Ltd mobility - disease progression Deconditioned w/ increased weakness Limited ability to care for self I certify that my clinical findings support that this patient is homebound because: limited mobility, need for vacuum dressing Post-op weakness Riddhi Llanos MD March 04, 2017 10:08
[2017-03-04 12:00] VITALS: BP 112/57; PULSE 78; RESP 18; TEMP 98.1; O2SAT 97
[2017-03-04] MEDS ORDERED: GABA100C4 PO (15:27)
[2017-03-04 16:00] VITALS: BP 116/61; PULSE 77; RESP 18; TEMP 98.4; O2SAT 94
[2017-03-04] MEDS: ENOXAPARIN SODIUM 30 MG/0.3 ML SYRINGE SQ SCH (16:28)
--- NOTE | 2017-03-22 13:35 | HHI.DS ---
Discharge Summary Admission Date February 20, 2017 at 17:55 Discharge Date: March 04, 2017 Admitting Diagnosis dehydration, cellulitis, severe sepsis, LOULOU (1) Severe sepsis (2) Acute kidney injury (3) Hx of diverticulitis of colon (4) s/p laparoscopic lysis of adhesions, left sigmoid colectomy with diverting ileostomy (5) Wound infection (6) Dehydration (7) Syncope (8) Cellulitis (9) DM (diabetes mellitus) Procedures -Resection with reanastomosis of ileostomy, and wound debridement. Imaging Last Impressions Enema w/Water Soluble 02/23/17 0000 Signed Impressions: Service Date/Time: Thursday, February 23, 2017 09:51 - CONCLUSION: Mild to moderate diverticulosis with no evidence of obstruction or leakage. Jackson Herrera MD Abdomen/Pelvis CT 02/20/17 1729 Signed Impressions: Service Date/Time: Monday, February 20, 2017 17:42 - CONCLUSION: 1. Ventral hernia/ostomy as above with decreased size of the fluid and air collection within the anterior abdominal wall and resolved collection that was previously seen within the adjacent peritoneal space. 2. No acute abnormality demonstrated. Hyperdense cysts of both kidneys and nonobstructing stones of the left kidney are again noted. Rodriguez Mack MD Chest X-Ray 02/20/17 1612 Signed Impressions: Service Date/Time: Monday, February 20, 2017 16:41 - CONCLUSION: 1. No acute cardiopulmonary disease. Mic Fraire MD Hospital Course The patient is a very pleasant 46-year-old male with a past medical history of severe relapsing diverticulitis for which he had laparoscopic lysis of adhesions with sigmoid colectomy and diverting ileostomy performed by Dr. Riddhi Peter on 01/16/2017. He was doing well but had leaking from the ileostomy bag site since the time he had surgery. He saw Dr. Llanos on who prescribed Bactrim. On the day of admission he was standing in his house and suddenly passed out. The next thing he knew he was on the floor. He came to the ER and evaluated by the ER physician and the montessori paraprofessional. At present he haD no complaint. He haD no headache, dizziness, nausea, vomiting, chest pain, diaphoresis, palpitations, abdominal pain. He has liquid stool as usual. He does not know if it is a normal rate or less rate, but it seems like normal to him. In the ER he was severely hypotensive with acute kidney injury. He was admitted with acute kidney and hypotension causing a syncopal episode with lactic acidosis. The patient was given good rehydration. Now the blood pressure is stable. His kidney function also showing signs of improvement. His lactic acid was better the next day. LFTs also coming down. Sodium and potassium within normal limits. Chloride 113, CO2 18.6, BUN 31, creatinine 2.07, was 43 and 3.30. Lactic acid 1.5. Calcium 8. AST and ALT within normal limits. Alkaline phosphatase 165. Total protein 5.7. Albumin 2.6. CBC shows a normal WBC and platelet count. Hemoglobin 10.5, hematocrit 32. Urine shows leukocyte esterase trace, RBC 3, WBC 1. PT, INR and APTT within normal limits. Nasal screen MRSA not detected. Blood cultures and urine culture are pending. IMAGING CT of the abdomen was done which showed a ventral hernia/ostomy with decreased size of fluid and air collection within the anterior abdominal wall and resolved collection that was previously seen within the adjacent peritoneal space. No acute abnormality demonstrated. Hyperdense cysts of both kidneys and nonobstructive stone of he left kidney are again noted. Chest x-ray was done which showed no acute cardiopulmonary disease. EKG EKG was done which showed sinus tachycardia at a rate of [address]-T wave changes. Pt. admitted for the following: (1) Altered mental status (2) [id number] kidney injury (3) Right knee pain (4) Osteoarthritis (5) History of colon cancer (6) HTN (hypertension) (7) GERD (gastroesophageal reflux disease) (8) CAD (coronary artery disease) (9) Neuropathy (10) Atrial fibrillation (11) BPH (benign prostatic hyperplasia) (12) HLD (hyperlipidemia) (13) Leukocytosis During the course of the hospitalization, the following took place: (1) Syncope (2) Dehydration (3) Cellulitis (4) Severe sepsis (5) Acute kidney injury (6) DM (diabetes mellitus) (7) Hx of diverticulitis of colon (8) s/p laparoscopic lysis of adhesions, left sigmoid colectomy with diverting ileostomy Assessment/Plan 46-year-old male admitted after syncopal episode, found severely dehydrated in acute renal injury, septic, cellulitis of abdominal wall around the ileostomy site from leakage. Patient with history of diverticulitis, status post laparoscopic lysis of adhesions, left sigmoid colectomy with diverting ileostomy -Patient was transferred out of ICU, hemodynamically stable. -BP stable Continued to hold antihypertensive agents -renal function back to normal -enc. po intake -IVF were discontinued. Sepsis, with cellulitis of abdominal wall Continued with Azactam Lactic acid back to normal stools for C. difficile -negative -Dr. Llanos evaluated, input appreciated. -GE results noted, no obstruction, no leaking. Recommended surgery for reanastomosis. -S/P ileostomy reanastomosis with wound debridement 02/27 -continue post op care -had BM doing well, pain well controlled -wound vac applied -will need at dc -[id number] ADA -did well post op, no complication, no fever. Tolerated diet, had BM. Pt. to require wound vac for dc. Consulted CM for dc planning Type 2 diabetes, blood glucose stable Continued with Accu-Cheks before meals and at bedtime and insulin therapy History hypertension, was hypotensive Continued to hold antihypertensive agents, blood pressure was stable. OOB daily Lovenox for DVT prophylaxis PPI for GI prophylaxis CM for dc planning,to arrange wound vac Pt. cleared by surgery for dc Wound vac arranged Discharged home in stable condition Instructed to f/u , PCP Diet-diabetic Activity-as tolerated. Pt Condition on Discharge: Stable Discharge Disposition: Disch w/ Home Health Serv Discharge Instructions DIET: Follow Instructions for: Heart Healthy Diet Activities you can perform: Regular-No Restrictions Follow up Referrals: Colorectal Surgery - 1 Week with Riddhi Llanos MD SNF/RETIREMENT/ with [facility] at Home New Medications: Gabapentin (Gabapentin) 100 Mg Cap 100 MG PO BID neuropathy #60 Ref 0 CAP Hydrocodone-Acetaminophen (Hydrocodone-Acetaminophen) 5-325 mg Tab 1 TAB PO Q6H PRN PAIN SCALE 1 TO 10 #30 TAB Continued Medications: Ferrous Sulfate (Iron) 325 Mg Tab 325 MG PO DAILY Take Nutritional Supplement Ref 0 TAB Hydrocodone-Acetaminophen (Hydrocodone-Acetaminophen) 5-325 mg Tab 1-2 TAB PO Q6H PRN PAIN SCALE 1 TO 10 #30 TAB Losartan (Losartan) 100 Mg Tab 100 MG PO DAILY Blood Pressure Management #30 Ref 0 TAB Metformin (Metformin) 850 Mg Tab 850 MG PO HS With a meal Blood Sugar Management Ref 0 TAB Montelukast (Montelukast) 10 Mg Tab 10 MG PO HS PRN ALLERGIES #30 Ref 0 TAB Omeprazole (Omeprazole) 20 Mg Tab 20 MG PO BID Heartburn Management #30 Ref 0 TAB Potassium Chloride Microencaps (Potassium Chloride Microencaps) 20 Meq Tab 20 MEQ PO Q12HR hypokalemia #30 TAB Simvastatin (Simvastatin) 20 Mg Tab 20 MG PO HS Cholesterol Management #30 Ref 0 TAB Terazosin (Terazosin) 5 Mg Cap 5 MG PO HS #30 Ref 0 CAP Verapamil ER 24 HR (Verapamil ER 24 HR) 240 Mg Tab 240 MG PO DAILY Blood Pressure Management #30 Ref 0 TAB Zaleplon (Zaleplon) 10 Mg Cap 10 MG PO HS PRN INSOMNIA Ref 0 CAP Lily Flores Mar 22, 2017 13:35
== END 2017-03-04 20:00 | disposition home health service (06) | DRG 854 ==
LOC: NEPC 15:57 → NEDA 17:55 → HIMN 21:35 → N04A 02-21 14:19
PROVIDERS: ADMIT Specialist; ATTEND Specialist
PROC: 0DBB0ZZ Excision of Ileum, Open Approach (ICD-10-PCS; principal; 2017-02-27 13:06)
PROC: 0HB7XZZ Excision of Abdomen Skin, External Approach (ICD-10-PCS; 2017-02-27 13:06)
DX: A41.9 Sepsis, unspecified organism (principal); K94.13 Enterostomy malfunction; E87.2 Acidosis; N17.9 Acute kidney failure, unspecified; E66.01 Morbid (severe) obesity due to excess calories; L03.311 Cellulitis of abdominal wall; I95.1 Orthostatic hypotension; R65.20 Severe sepsis without septic shock; I10 Essential (primary) hypertension; E11.9 Type 2 diabetes mellitus without complications; M19.90 Unspecified osteoarthritis, unspecified site; F41.9 Anxiety disorder, unspecified; E78.00 Pure hypercholesterolemia, unspecified; K21.9 Gastro-esophageal reflux disease without esophagitis; Z87.442 Personal history of urinary calculi; Z88.3 Allergy status to other anti-infective agents; Z88.0 Allergy status to penicillin; Z88.8 Allergy status to other drugs, medicaments and biological substances; E86.0 Dehydration; Y83.8 Other surgical procedures as the cause of abnormal reaction of the patient, or of later complication, without mention of misadventure at the time of the procedure; Y73.3 Surgical instruments, materials and gastroenterology and urology devices (including sutures) associated with adverse incidents; Y92.009 Unspecified place in unspecified non-institutional (private) residence as the place of occurrence of the external cause; R19.7 Diarrhea, unspecified; E87.6 Hypokalemia
CPT/HCPCS: 71010; 74176; 74270; 76937; 80048; 80053; 81001; 82550; 82948; 83605; 83690; 83735; 84100; 84132; 84155; 84484; 85025; 85027; 85610; 85730; 87040; 87086; 87493; 87641; 88304; 88305; 93005; 94150; 96374; C1765; C9113; J0131; J0690; J1170; J1650; J1815; J1885; J2250; J2270; J2405; J3010; J3370; J3475; J3480; J7030; J7040; J7050; J7120; Q9963